=== PATIENT | female | born 2000 | race Caucasian/White ===

== ENCOUNTER 2022-03-07 23:14 | Observation (INO) | payer OTHER, SELFPAY ==
--- NOTE | ~2022-03-07 | CT_ITS ---
EXAMINATION: CT abdomen pelvis wo con DATE: 03/08/2022 02:19 INDICATION: nausea, vomiting upper abdominal pain TECHNIQUE: Computed tomography (CT) of the abdomen and pelvis was performed without intravenous contr ast. Automated exposure control and iterative reconstruction technique were employed. The dose-length product was 288.96 mGy-cm. COMPARISON: None FINDINGS: Lower thorax: Unremarkable Liver: Normal. Biliary/Gallbladder: Gallbladder is normal. No bile duct dilation. Pancreas: No mass or duct dilation. Spleen: Normal. Adrenals:No mass. Kidneys: No mass, stone, or hydronephrosis. GI tract: No small or large bowel dilation. Appendix not confidently visualized. Fluid-filled colon. Mesentery/Peritoneum: No ascites, mass, or free air. Retroperitoneum: No mass. Pelvis: Pelvic organs are within normal limits. Soft Tissues: Soft tissues and body wall unremarkable. Bones: No acute osseous finding. IMPRESSION: Fluid-filled colon as can be seen with diarrheal illness. Otherwise no acute abdominopelvic process. Reviewed, dictated and finalized at location K. IMPRESSION: Fluid-filled colon as can be seen with diarrheal illness. Otherwise no acute ab dominopelvic process.
--- NOTE | ~2022-03-07 | XR_ITS ---
EXAMINATION: XR chest 1V portable INDICATION: Weakness and abdominal pain TECHNIQUE: Portable AP chest at 0108 hours COMPARISON: None available FINDINGS: The lungs are free of acute opacities. There is no pleural effusion or pneumothorax. The ca rdiomediastinal silhouette is normal. The visualized bones and soft tissues are unremarkable. IMPRESSION: 1. No acute cardiopulmonary abnormality. Reviewed, dictated and finalized at location A.
--- NOTE | 2022-03-07 23:22 | ECG_ITS ---
Measurements Intervals [place] Rate: 101 P: 55 LA: 148 QRS: 50 QRSD: 87 T: -5 QT: 384 QTc: 500 Interpretive Statements SINUS TACHYCARDIA NONSPECIFIC T-WAVE ABNORMALITY NO SIGNIFICANT CHANGE Electronically Signed On 03-08-2022 8:57:54 CDT by Jaclyn Ramos M.D.
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
[2022-03-07 23:26] VITALS: BP 102/67; PULSE 91; RESP 20; TEMP 35.7; O2SAT 100
[2022-03-07 23:55] LABS: Basophils Absolute Auto 0.1 K/mm3 (0.0-0.1); Basophils Percent Auto 0.4 % (0.2-1.2); Eosinophils Percent Auto 0.2 % (0-4.4); Hematocrit 39.3 % (37.0-47.0); Hemoglobin 13.2 g/dL (12.0-15.0); Immature Granulocyte Absolute 0.09 K/mm3 (0.00-0.031); Immature Granulocyte Percent A 0.5 % (0-0.5); Lymphocytes Absolute Auto 1.01 K/mm3 (0.9-3.2); Lymphocytes Percent Auto 5.5 % (18.3-44.2); Mean Corpuscular HGB Conc 33.6 g/dl (32-36); Mean Corpuscular Hemoglobin 29.5 pg (26-34); Mean Corpuscular Volume 87.9 fl (80-100); Mean Platelet Volume 9.4 fl (7.4-10.4); Monocytes Percent Auto 5.3 % (2.6-8.5); Neutrophils Absolute Auto 16.2 K/mm3 (1.3-6.7); Neutrophils Percent Auto 88.1 % (45.5-73.1); Platelet Count Result 331 k/mm3 (150-375); Red Blood Count 4.47 M/mm3 (4.2-5.4); Red Cell Distribution Width 12.1 % (11.5-14.5); White Blood Count 18.4 K/mm3 (4.5-10.0)
[2022-03-08] VITALS (14 sets, daily range): BP systolic 103–118; BP diastolic 60–82; PULSE 106–140; RESP 16–22; TEMP 36.4–37.7; O2SAT 96–99; BMI 25.9
[2022-03-08 00:02] LABS: Alanine Aminotransferase 24 U/L (6-35); Albumin Level 4.7 g/dL (3.5-5.1); Alkaline Phosphatase 77 U/L (38-126); Anion Gap 15 mmol/L (8-16); Aspartate Amino Transferase 30 U/L (14-36); Bilirubin,Total 0.5 mg/dL (0.2-1.3); Blood Urea Nitrogen 12 mg/dL (7-17); Calcium 9.4 mg/dL (8.4-10.2); Carbon Dioxide 15 mmol/L (22-30); Chloride 106 mmol/L (98-107); Estimated CRCL calculation 99 ml/min; Estimated Glomerular Filt Rate > 60; Glucose 195 mg/dL (65-110); Lipase 63 U/L (23-300); Magnesium 1.4 mg/dL (1.6-2.3); Potassium 3.6 mmol/L (3.4-5.0); Sodium 136 mmol/L (137-145)
[2022-03-08 00:04] LABS: Lactic Acid Reflex 4.3 mmol/L (0.7-2.0)
[2022-03-08] MEDS: LACTATED RINGERS 1,000 ML 999 ML IV CONT ×2 (00:07→00:47)
[2022-03-08] MEDS: ONDANSETRON INJ 4 MG/2 ML VIAL IV PUSH ×2 (00:08→04:50)
[2022-03-08 00:42] LABS: Base Excess ABG -4.9 mEq/l (+/-2.0); Fractional Inspired Oxygen 21 %; HCO3 ABG 17.8 mEq/l (22.0-26.0); Methemoglobin ABG 0.3 %THb (0-1.5); Oxygen Content ABG 17.6 %vol (16.0-22.0); Oxygen Saturation ABG 97.7 % (95.0-100.0); Oxyhemoglobin 96.5 % THb (90.0-100.0); PCO2 ABG 27.1 mmHg (35.0-45.0); PO2 ABG 96.3 mmHg (80.0-100.0); PO2 FiO2 Ratio Arterial Blood 4.59 %; Reduced Hemoglobin 3.2 %THb (0-5.0); Total Hemoglobin 12.9 g/dL (12.0-18.0); pH ABG 7.436 (7.350-7.450)
[2022-03-08 00:43] LABS: Device ROOM AIR; Modified Allen's Test Pass; Site Drawn RIGHT RADIAL
[2022-03-08 01:19] LABS: Add Urine Microscopic? YES; Appearance Urine Clear (Clear); Bilirubin Urine Negative (Negative); Blood Urine Trace (Negative); Color Urine Yellow (Yellow); Glucose Urine UA Negative (Negative); Ketones Urine 3+ mg/dL (Negative); Leukocyte Esterase Ur Negative LEU/UL (Negative); Nitrate Urine Negative (Negative); Protein Urine Negative (Negative); Urobilinogen Urine 0.2 mg/dL (<2.0)
[2022-03-08 01:24] LABS: Mucus Urine Few /lpf; Squamous Epithelial Cell Urine Rare /hpf (Few)
[2022-03-08 01:32] LABS: Amphetamine Screen Urine Negative (Negative); Barbiturate Screen Urine Negative (Negative); Benzodiazepines Screen Urine Negative (Negative); Cannabinoid Screen Urine Negative (Negative); Cocaine Screen Urine Negative (Negative); Methadone Screen Urine Negative (Negative); Opiate Screen Urine Negative (Negative); Phencyclidine Screen Urine Negative (Negative)
--- NOTE | 2022-03-08 01:58 | PC.NURSE ---
Pt ambulated to bathroom with steady gait.
[2022-03-08] MEDS: SODIUM CHLORIDE 0.9% IV 1,000 ML 999 ML IV CONT ×2 (02:32→03:45)
[2022-03-08 02:47] LABS: Reflex Lactic Acid Yes or No Add Lactic
--- NOTE | 2022-03-08 02:52 | PC.NURSE ---
Pt much improved. Mother now at the bedside. Friends had been in and out of room. Pt. smiling and conversational appropreate. C/O a H/A 4 on a 1-10 scale.
[2022-03-08 03:23] LABS: Lactic Acid 1.5 mmol/L (0.7-2.0)
--- NOTE | 2022-03-08 05:03 | PC.NURSE ---
nausea vomiting and diarreha returned. pt reports some abdominal discomfort.
--- NOTE | 2022-03-08 06:22 | PC.NURSE ---
Pt C/O rosemary umbilical pain aching and cramping in sensation and a 5 on a 1-10 scale. CHARLY James adviseed. Addmissions orders recieved.
[2022-03-08 07:08] LABS: SARS-CoV-2 RNA PCR Negative
[2022-03-08] MEDS: KETOROLAC 30 MG/ML VIAL (*BKC) IV PUSH (07:16)
--- NOTE | 2022-03-08 08:17 | ADMGEN ---
This patient, Jazlyn Ford, was admitted to [facility] Surg Room 300-01 at 0732. Report per REX Starkey. Patient/family oriented to hospital policies and general routines including ID bracelet, bed and alarms, visiting hours, pain management, procedures, bathroom and other care routines, personal items, smoking policy, room service/diet, and visiting hours. Information on how to activate the Rapid Response Team has been discussed. Patient/Family are encouraged to report perceived risks to care and to ask questions if they do not understand what they are told or what they should do.
[2022-03-08 08:37] LABS: Basophils Percent Auto 0.3 % (0.2-1.2); Hematocrit 33.3 % (37.0-47.0); Hemoglobin 11.1 g/dL (12.0-15.0); Immature Granulocyte Absolute 0.04 K/mm3 (0.00-0.031); Immature Granulocyte Percent A 0.4 % (0-0.5); Lymphocytes Absolute Auto 0.53 K/mm3 (0.9-3.2); Lymphocytes Percent Auto 4.9 % (18.3-44.2); Mean Corpuscular HGB Conc 33.3 g/dl (32-36); Mean Corpuscular Hemoglobin 29.8 pg (26-34); Mean Corpuscular Volume 89.5 fl (80-100); Mean Platelet Volume 9.5 fl (7.4-10.4); Monocytes Absolute Auto 0.4 K/mm3 (0.1-0.6); Monocytes Percent Auto 3.9 % (2.6-8.5); Neutrophils Absolute Auto 9.8 K/mm3 (1.3-6.7); Neutrophils Percent Auto 90.5 % (45.5-73.1); Platelet Count Result 250 k/mm3 (150-375); Red Blood Count 3.72 M/mm3 (4.2-5.4); Red Cell Distribution Width 12.4 % (11.5-14.5); White Blood Count 10.9 K/mm3 (4.5-10.0)
[2022-03-08 08:52] LABS: Alanine Aminotransferase 17 U/L (6-35); Albumin Level 3.8 g/dL (3.5-5.1); Alkaline Phosphatase 54 U/L (38-126); Anion Gap 9 mmol/L (8-16); Aspartate Amino Transferase 20 U/L (14-36); Bilirubin,Total 0.4 mg/dL (0.2-1.3); Blood Urea Nitrogen 8 mg/dL (7-17); Calcium 7.8 mg/dL (8.4-10.2); Carbon Dioxide 20 mmol/L (22-30); Chloride 110 mmol/L (98-107); Estimated CRCL calculation 116 ml/min; Estimated Glomerular Filt Rate > 60; Glucose 109 mg/dL (65-110); Lipase 35 U/L (23-300); Potassium 3.5 mmol/L (3.4-5.0); Sodium 139 mmol/L (137-145)
[2022-03-08] MEDS: PANTOPRAZOLE SODIUM IV 40 MG VIAL IV PUSH (09:08)
[2022-03-08] MEDS: SODIUM CHLORIDE 0.9% IV 1,000 ML 125 ML IV CONT ×2 (09:08→17:20)
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
[2022-03-08 09:55] LABS: Magnesium 1.6 mg/dL (1.6-2.3)
[2022-03-08] MEDS: FLUoxetine HCL 20 MG CAPSULE 40 MG PO (11:12)
[2022-03-08] MEDS: CHOLECALCIFEROL 1,000 UNITS TABLET 1000 UNITS PO (11:13)
[2022-03-08] MEDS: CYANOCOBALAMIN 1,000 MCG TABLET 1000 MCG PO (11:13)
[2022-03-08] MEDS: busPIRone HCL 5 MG TABLET PO (20:22)
[2022-03-09] MEDS: SODIUM CHLORIDE 0.9% IV 1,000 ML 125 ML IV CONT (01:50)
[2022-03-09 02:32] VITALS: O2SAT 100
[2022-03-09 04:00] VITALS: PULSE 103
[2022-03-09 05:58] VITALS: BP 111/66; PULSE 109; RESP 18; TEMP 36.3; O2SAT 99
[2022-03-09 06:42] LABS: Basophils Percent Auto 0.3 % (0.2-1.2); Eosinophils Absolute Auto 0.1 K/mm3 (0-0.3); Eosinophils Percent Auto 1.6 % (0-4.4); Hematocrit 34.1 % (37.0-47.0); Hemoglobin 11.3 g/dL (12.0-15.0); Immature Granulocyte Absolute 0.03 K/mm3 (0.00-0.031); Immature Granulocyte Percent A 0.5 % (0-0.5); Lymphocytes Absolute Auto 1.67 K/mm3 (0.9-3.2); Lymphocytes Percent Auto 28.9 % (18.3-44.2); Mean Corpuscular HGB Conc 33.1 g/dl (32-36); Mean Corpuscular Hemoglobin 29.6 pg (26-34); Mean Corpuscular Volume 89.3 fl (80-100); Mean Platelet Volume 9.8 fl (7.4-10.4); Monocytes Absolute Auto 0.7 K/mm3 (0.1-0.6); Monocytes Percent Auto 11.4 % (2.6-8.5); Neutrophils Absolute Auto 3.3 K/mm3 (1.3-6.7); Neutrophils Percent Auto 57.3 % (45.5-73.1); Platelet Count Result 214 k/mm3 (150-375); Red Blood Count 3.82 M/mm3 (4.2-5.4); Red Cell Distribution Width 12.5 % (11.5-14.5); White Blood Count 5.8 K/mm3 (4.5-10.0)
[2022-03-09 06:55] LABS: Alanine Aminotransferase 33 U/L (6-35); Albumin Level 3.5 g/dL (3.5-5.1); Alkaline Phosphatase 59 U/L (38-126); Anion Gap 7 mmol/L (8-16); Aspartate Amino Transferase 45 U/L (14-36); Bilirubin,Total 0.2 mg/dL (0.2-1.3); Blood Urea Nitrogen 3 mg/dL (7-17); Calcium 7.8 mg/dL (8.4-10.2); Carbon Dioxide 23 mmol/L (22-30); Chloride 108 mmol/L (98-107); Estimated CRCL calculation 116 ml/min; Estimated Glomerular Filt Rate > 60; Glucose 83 mg/dL (65-110); Potassium 3.2 mmol/L (3.4-5.0); Sodium 138 mmol/L (137-145)
[2022-03-09 08:00] VITALS: PULSE 113
[2022-03-09] MEDS: POTASSIUM CHLORIDE 20 MEQ TABLET 40 MEQ PO (08:35)
[2022-03-09] MEDS: CYANOCOBALAMIN 1,000 MCG TABLET 1000 MCG PO (08:36)
[2022-03-09] MEDS: FLUoxetine HCL 20 MG CAPSULE 40 MG PO (08:36)
[2022-03-09] MEDS: CHOLECALCIFEROL 1,000 UNITS TABLET 1000 UNITS PO (08:36)
[2022-03-09] MEDS: PANTOPRAZOLE SODIUM IV 40 MG VIAL IV PUSH (08:36)
--- NOTE | 2022-03-09 08:36 | PM.DS ---
DS: Admitting Diagnosis Discharge Date 03/09/22 Admitting Diagnosis N/V/D DS: Discharge Diagnosis Discharge Diagnosis (1) Enterocolitis: Code(s): K52.9 - Noninfective gastroenteritis and colitis, unspecified Status: Acute Assessment and Plan: -sudden onset N/V/D/abd pain 1 hour after eating pizza/salad -CT abd/pelv shows enterocolitis -food poisoning vs viral gastroenteritis -pt improved with IVF and antiemetics -no hematochezia to suggest infectious diarrhea, no abx indicated at this time -leukocytosis resolved, no fevers -tachycardic which is baseline for her, has been worked up extensively by cardiology -tolerating full liquids without difficulty, no N/V. Still some lower abdominal cramping and diarrhea. As long as she tolerated regular diet for lunch she can be discharged home. -she is non toxic appearing in no distress, vitals stable (2) Leukocytosis: Code(s): D72.829 - Elevated white blood cell count, unspecified Status: Acute Assessment and Plan: -18.4 on arrival, most likely secondary to intractable vomiting due to above -decreased to 5.8 today with IVF -lactate was 4.3 on arrival but down to 1.5 after 2L IVF -no fevers or other signs to suggest acute bacterial infection or sepsis (3) Hyperglycemia: Code(s): R73.9 - Hyperglycemia, unspecified Status: Acute Assessment and Plan: -noted to be 195 on arrival, down to 83 today -hgb a1c 5.0 (4) Hypomagnesemia: Code(s): E83.42 - Hypomagnesemia Status: Acute Assessment and Plan: -1.4 on arrival -given 2 g IV in ED -1.6 after replacement (5) UDAY (generalized anxiety disorder): Code(s): F41.1 - Generalized anxiety disorder Status: Acute Assessment and Plan: -continued home meds DS: Summary Hospital Course Reason for hospitalization: Pt is a 21 yo female w/ hx of anxiety who presented to the ED for acute onset N/V/D/abd pain.? Please see HPI for further details. Hospital Course: Please see above for details of hospital course. Status at Discharge Cognitive/behavioral status at discharge: stable Functional status at discharge: independent ambulation Overall status at discharge: patient is progressing back to baseline Time Spent with Patient Time attestation: Total time spent providing and/or coordinating discharge services: 32 Time spent: Greater than 30 minutes Exam Narrative: General: No acute distress, non toxic appearing Eyes: PERRL, no scleral icterus HEENT: NCAT, external ears normal, MMM Respiratory: No respiratory distress, Lungs CTA bilaterally, no wheezing Cardiovascular: RRR, no murmur Abdominal: Soft, nontender, non distended, no rebound or guarding Musculoskeletal: Moves all 4 extremities, no edema Neurological: A/Ox3, speech clear, no facial asymmetry Skin: Warm, dry, no rashes Psychiatric: Normal affect, normal mood DS: Data Data Completed and Pending Labs on day of discharge: Labs from last 24 hours 03/09/22 03/09/22 03/08/22 05:48 05:48 16:40 WBC 5.8 RBC 3.82 L Hgb 11.3 L Hct 34.1 L MCV 89.3 MCH 29.6 MCHC 33.1 RDW 12.5 Plt Count 214 MPV 9.8 Immature Gran % (Auto) 0.5 Neut % (Auto) 57.3 Lymph % (Auto) 28.9 [place] % (Auto) 11.4 H Eos % (Auto) 1.6 Baso % (Auto) 0.3 Lymph # (Auto) 1.67 [place] # (Auto) 0.7 H Eos # (Auto) 0.1 Baso # (Auto) 0.0 Abs Immat Gran (auto) 0.03 Absolute Neuts (auto) 3.3 Absolute Nucleated RBC 0.0 Nucleated RBC % 0.0 Sodium 138 Potassium 3.2 L Chloride 108 H Carbon Dioxide 23 Anion Gap 7 L BUN 3 L D Creatinine 0.50 L Estim Creat Clear Calc 116 Estimated GFR > 60 Glucose 83 Hemoglobin A1c Calcium 7.8 L Magnesium Total Bilirubin 0.2 AST 45 H ALT 33 Alkaline Phosphatase 59 Total Protein 7.0 Albumin 3.5 Lipase Ova & Para
== END 2022-03-09 11:30 | disposition home or self-care (01) ==
LOC: ANHED 03-08 00:07 → ANH3MEDSUR 03-08 06:21
PROVIDERS: Physician Assistant; Admitting Provider Internal Medicine; Emergency Provider General Practice; PCP Nurse Practitioner Family; Visit Provider Internal Medicine
DX: K52.9 Noninfective gastroenteritis and colitis, unspecified (principal); I95.9 Hypotension, unspecified; R42 Dizziness and giddiness; F41.1 Generalized anxiety disorder; E72.12 Methylenetetrahydrofolate reductase deficiency; D72.829 Elevated white blood cell count, unspecified; R73.9 Hyperglycemia, unspecified; E83.42 Hypomagnesemia; Z20.822 Contact with and (suspected) exposure to COVID-19
CPT/HCPCS: 36415; 36600; 71045; 74176; 80053; 80307; 81001; 81025; 82375; 82805; 83036; 83050; 83605; 83690; 83735; 85025; 87045; 87177; 87209; 87269; 87272; 87427; 89055; 93005; 96361; 96365; 96374; 96375; 96376; 99285; A9270; C9113; C9803; G0378; J0131; J1885; J2405; J7030; J7120; U0003; U0005

== ENCOUNTER 2022-07-12 16:54 | Emergency (ER) | payer OTHER, SELFPAY ==
--- NOTE | ~2022-07-12 | CT_ITS ---
EXAMINATION: CT brain wo con DATE: 07/12/2022 18:00 INDICATION: visual loss, new R sided migraine RAMIREZ . TECHNIQUE: Computed tomography (CT) of the head was performed without intravenous contrast. The mA wa s adjusted according to patient size. Iterative reconstruction technique was employed. The dose-lengt h product was 605.33 mGy-cm. COMPARISON: 07/20/2019 FINDINGS: No acute intracranial hemorrhage or extra-axial fluid collection. No hydrocephalus, mass, or herniation. No acute ischemic infarct. Unremarkable dural venous sinus attenuation. No acute osseous abnormality. The aerated spaces are clear. IMPRESSION: No acute intracranial process. Reviewed, dictated and finalized at location K.
[2022-07-12 16:57] VITALS: BP 119/107; PULSE 113; RESP 17; TEMP 36.5; O2SAT 100
[2022-07-12 17:05] VITALS: O2SAT 100
[2022-07-12 17:13] VITALS: BP 129/84; PULSE 99; RESP 16; O2SAT 100
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
[2022-07-12] MEDS: SODIUM CHLORIDE 0.9% IV 1,000 ML 999 ML IV CONT (17:26)
[2022-07-12] MEDS: diphenhydrAMINE HCl INJ 50 MG/ML VIAL 25 MG IV PUSH (17:27)
[2022-07-12 17:37] LABS: Basophils Percent Auto 0.5 % (0.2-1.2); Eosinophils Absolute Auto 0.1 K/mm3 (0-0.3); Eosinophils Percent Auto 1.1 % (0-4.4); Hematocrit 38.1 % (37.0-47.0); Hemoglobin 12.6 g/dL (12.0-15.0); Immature Granulocyte Absolute 0.01 K/mm3 (0.00-0.031); Immature Granulocyte Percent A 0.2 % (0-0.5); Lymphocytes Absolute Auto 1.72 K/mm3 (0.9-3.2); Lymphocytes Percent Auto 30.4 % (18.3-44.2); Mean Corpuscular HGB Conc 33.1 g/dl (32-36); Mean Corpuscular Hemoglobin 29.9 pg (26-34); Mean Corpuscular Volume 90.3 fl (80-100); Mean Platelet Volume 9.1 fl (7.4-10.4); Monocytes Absolute Auto 0.4 K/mm3 (0.1-0.6); Monocytes Percent Auto 6.2 % (2.6-8.5); Neutrophils Absolute Auto 3.5 K/mm3 (1.3-6.7); Neutrophils Percent Auto 61.6 % (45.5-73.1); Platelet Count Result 288 k/mm3 (150-375); Red Blood Count 4.22 M/mm3 (4.2-5.4); Red Cell Distribution Width 12.6 % (11.5-14.5); White Blood Count 5.7 K/mm3 (4.5-10.0)
[2022-07-12 17:46] LABS: Alanine Aminotransferase 20 U/L (6-35); Albumin Level 4.7 g/dL (3.5-5.1); Alkaline Phosphatase 77 U/L (38-126); Anion Gap 13 mmol/L (8-16); Aspartate Amino Transferase 22 U/L (14-36); Bilirubin,Total 0.3 mg/dL (0.2-1.3); Blood Urea Nitrogen 8 mg/dL (7-17); Calcium 9.6 mg/dL (8.4-10.2); Carbon Dioxide 26 mmol/L (22-30); Chloride 101 mmol/L (98-107); Estimated CRCL calculation 94 ml/min; Estimated Glomerular Filt Rate > 60; Glucose 105 mg/dL (65-110); Potassium 3.9 mmol/L (3.4-5.0); Sodium 140 mmol/L (137-145)
[2022-07-12 18:03] VITALS: BP 129/91; PULSE 117; RESP 22; O2SAT 98
[2022-07-12] MEDS: KETOROLAC 15 MG/ML VIAL (*BKC) IV PUSH (18:03)
[2022-07-12 18:16] VITALS: BP 124/86; PULSE 126; RESP 19; O2SAT 98
[2022-07-12 18:46] VITALS: BP 106/69; PULSE 103; RESP 20; O2SAT 99
== END 2022-07-12 18:54 | disposition home or self-care (01) ==
PROVIDERS: Physician Assistant; Emergency Provider General Practice; PCP Family Medicine
DX: G43.109 Migraine with aura, not intractable, without status migrainosus (principal); F41.1 Generalized anxiety disorder
CPT/HCPCS: 36415; 70450; 80053; 81025; 85025; 96361; 96374; 96375; 99284; J1200; J1885; J7030

== ENCOUNTER 2022-07-18 14:47 | Emergency (ER) | payer OTHER, SELFPAY ==
[2022-07-18 14:52] VITALS: BP 139/77; PULSE 112; RESP 18; TEMP 36.8; O2SAT 100
--- NOTE | 2022-07-18 16:09 | PC.NURSE ---
Pt to the intake desk and states that she is going to leave. Pt states im just going to wait it out at home Pt ambulated to the exit with a steady gait
== END 2022-07-18 16:09 | disposition left against medical advice (07) ==
LOC: ANHED 07-19 03:46
PROVIDERS: PCP Family Medicine
DX: Z53.21 Procedure and treatment not carried out due to patient leaving prior to being seen by health care provider (principal)
CPT/HCPCS: 99199

== ENCOUNTER 2022-07-20 18:17 | Emergency (ER) | payer OTHER, SELFPAY ==
[2022-07-20 18:34] VITALS: BP 141/82; PULSE 115; RESP 18; TEMP 36.6; O2SAT 99
[2022-07-20 18:45] LABS: Basophils Percent Auto 0.4 % (0.2-1.2); Eosinophils Absolute Auto 0.1 K/mm3 (0-0.3); Eosinophils Percent Auto 0.7 % (0-4.4); Hematocrit 38.1 % (37.0-47.0); Hemoglobin 12.7 g/dL (12.0-15.0); Immature Granulocyte Absolute 0.02 K/mm3 (0.00-0.031); Immature Granulocyte Percent A 0.3 % (0-0.5); Lymphocytes Absolute Auto 2.44 K/mm3 (0.9-3.2); Lymphocytes Percent Auto 32.5 % (18.3-44.2); Mean Corpuscular HGB Conc 33.3 g/dl (32-36); Mean Corpuscular Hemoglobin 30.1 pg (26-34); Mean Corpuscular Volume 90.3 fl (80-100); Mean Platelet Volume 9.2 fl (7.4-10.4); Monocytes Absolute Auto 0.6 K/mm3 (0.1-0.6); Monocytes Percent Auto 7.7 % (2.6-8.5); Neutrophils Absolute Auto 4.4 K/mm3 (1.3-6.7); Neutrophils Percent Auto 58.4 % (45.5-73.1); Platelet Count Result 328 k/mm3 (150-375); Red Blood Count 4.22 M/mm3 (4.2-5.4); Red Cell Distribution Width 12.4 % (11.5-14.5); White Blood Count 7.5 K/mm3 (4.5-10.0)
[2022-07-20 18:53] LABS: Alanine Aminotransferase 23 U/L (6-35); Albumin Level 4.9 g/dL (3.5-5.1); Alkaline Phosphatase 61 U/L (38-126); Anion Gap 15 mmol/L (8-16); Aspartate Amino Transferase 24 U/L (14-36); Bilirubin,Total 0.4 mg/dL (0.2-1.3); Blood Urea Nitrogen 7 mg/dL (7-17); Calcium 9.3 mg/dL (8.4-10.2); Carbon Dioxide 24 mmol/L (22-30); Chloride 100 mmol/L (98-107); Estimated CRCL calculation 81 ml/min; Estimated Glomerular Filt Rate > 60; Glucose 100 mg/dL (65-110); Lipase 60 U/L (23-300); Potassium 3.5 mmol/L (3.4-5.0); Sodium 139 mmol/L (137-145)
[2022-07-20 18:58] LABS: Add Urine Microscopic? YES; Amorphous Sediment Urine Few; Appearance Urine Cloudy (Clear); Bacteria Urine Trace /hpf; Bilirubin Urine Negative (Negative); Blood Urine Negative (Negative); Color Urine Yellow (Yellow); Glucose Urine UA Negative (Negative); Ketones Urine Negative (Negative); Leukocyte Esterase Ur Negative LEU/UL (Negative); Mucus Urine Rare /lpf; Nitrate Urine Negative (Negative); Protein Urine Negative (Negative); Specific Grav Ur 1.018 (1.001-1.035); Squamous Epithelial Cell Urine Rare /hpf (Few); WBC Urine 0-3 /hpf
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
[2022-07-20] MEDS: SODIUM CHLORIDE 0.9% IV 1,000 ML 999 ML IV CONT ×2 (20:49)
[2022-07-20] MEDS: PROCHLORPERAZINE EDISYLATE 10 MG/2 ML VIAL IV PUSH (20:50)
[2022-07-20] MEDS: diphenhydrAMINE HCl INJ 50 MG/ML VIAL 25 MG IV PUSH (20:50)
[2022-07-20 21:51] LABS: Amphetamine Screen Urine Negative (Negative); Barbiturate Screen Urine Negative (Negative); Benzodiazepines Screen Urine Negative (Negative); Cannabinoid Screen Urine Negative (Negative); Cocaine Screen Urine Negative (Negative); Methadone Screen Urine Negative (Negative); Opiate Screen Urine Negative (Negative); Phencyclidine Screen Urine Negative (Negative)
--- NOTE | 2022-07-20 21:59 | PC.NURSE ---
went to attempt reassess the pt, and found pt not in room. IV tubing on bed, with fluids leaking onto bed. no iv catheter found attempted to locate Pt, unable to do so called [facility] to check on pt at home address, and check to see if IV had been removed they stated they would and would return call to myself or mobile application developer mobile application developer made aware.
--- NOTE | 2022-07-20 22:54 | PC.NURSE ---
pd report iv not in pt arm on home check
== END 2022-07-20 22:05 | disposition left against medical advice (07) ==
PROVIDERS: Emergency Medicine; Emergency Provider Nurse Practitioner Family; PCP Family Medicine
DX: R11.2 Nausea with vomiting, unspecified (principal); F41.1 Generalized anxiety disorder
CPT/HCPCS: 36415; 80053; 80307; 81001; 83690; 85025; 96361; 96374; 96375; 99284; J0780; J1200; J7030

== ENCOUNTER 2023-04-01 05:55 | Emergency (ER) | payer OTHER, SELFPAY ==
[2023-04-01] VITALS (8 sets, daily range): BP systolic 110–132; BP diastolic 70–88; PULSE 96–115; RESP 16–18; TEMP 36.5; O2SAT 98–100
--- NOTE | ~2023-04-01 | CT_ITS ---
EXAMINATION: CT abdomen pelvis w con INDICATION: Pain TECHNIQUE: Computed tomographic images of the abdomen and pelvis were obtained after the administrati on of 100 cc of Omnipaque 350 intravenous contrast. The dose-length product (DLP) was 240.54 mGy-cm. Automated exposure control and iterative reconstruction technique were employed. COMPARISON: 03/08/2022 FINDINGS: The lung bases are clear. The heart size is normal. The liver, spleen, pancreas, gallbladde r, and adrenal glands are normal. The kidneys are unremarkable. No pathologically enlarged abdominal or pelvic lymph nodes are identified. No free intraperitoneal gas or evidence of bowel obstruction. T he appendix is normal. The left ovary is enlarged and heterogeneous appearance. The left ovary is so mewhat displaced towards the midline. There is a small volume of pelvic ascites. IMPRESSION: 1. Enlarged left ovary with a heterogeneous appearance and mild midline displacement. Findings are no nspecific but can be seen in the setting of ovarian torsion. Pelvic ultrasound is recommended. These findings and recommendations were discussed with Dr. All Gonzales MD in the Emergency Department at 0823 hours on 04/01/2023. Reviewed, dictated and finalized at location L. IMPRESSION: 1. Enlarged left ovary with a heterogeneous appearance and mild midline displac ement. Findings are nonspecific but can be seen in the setting of ovarian torsi on. Pelvic ultrasound is recommended. These findings and recommendations were d iscussed with Dr. All Gonzales MD in the Emergency Department at 0823 hours o n 04/01/2023.
--- NOTE | ~2023-04-01 | US_ITS ---
Pelvic ultrasound. Clinical History: Ovarian torsion, pelvic pain Technique: Realtime transabdominal and transvaginal scanning of the pelvis was performed. Color flow Doppler and Doppler spectral analysis were performed. Findings: The uterus is anteverted. The endometrial stripe has a thickness of 2 mm. No focal mass is identified. The right ovary measures 1.8 x 2.5 x 2.0 cm. No significant right ovarian or adnexal mass is seen. The left ovary measures 3.0 x 2.7 x 2.3 cm. Left ovarian cyst measures 2.8 cm. Axial flow present in both ovaries on Doppler spectral analysis. There is small amount of free fluid in the cul de sac. Impression: No evidence for torsion. 2.8 cm left ovarian cyst. Small amount of free fluid. Reviewed, dictated and finalized at [facility]. Impression: No evidence for torsion. 2.8 cm left ovarian cyst. Small amount of free fluid.
[2023-04-01 06:46] LABS: Basophils Percent Auto 0.5 % (0.2-1.2); Eosinophils Absolute Auto 0.1 K/mm3 (0-0.3); Eosinophils Percent Auto 1.4 % (0-4.4); Hematocrit 35.5 % (37.0-47.0); Hemoglobin 11.6 g/dL (12.0-15.0); Immature Granulocyte Absolute 0.03 K/mm3 (0.00-0.031); Immature Granulocyte Percent A 0.5 % (0-0.5); Lymphocytes Absolute Auto 1.96 K/mm3 (0.9-3.2); Lymphocytes Percent Auto 33.8 % (18.3-44.2); Mean Corpuscular HGB Conc 32.7 g/dl (32-36); Mean Corpuscular Hemoglobin 29.4 pg (26-34); Mean Corpuscular Volume 89.9 fl (80-100); Monocytes Absolute Auto 0.5 K/mm3 (0.1-0.6); Monocytes Percent Auto 7.9 % (2.6-8.5); Neutrophils Absolute Auto 3.2 K/mm3 (1.3-6.7); Neutrophils Percent Auto 55.9 % (45.5-73.1); Platelet Count Result 259 k/mm3 (150-375); Red Blood Count 3.95 M/mm3 (4.2-5.4); Red Cell Distribution Width 12.4 % (11.5-14.5); White Blood Count 5.8 K/mm3 (4.5-10.0)
[2023-04-01 06:52] LABS: Alanine Aminotransferase 19 U/L (6-35); Albumin Level 4.3 g/dL (3.5-5.1); Alkaline Phosphatase 57 U/L (38-126); Anion Gap 6 mmol/L (8-16); Aspartate Amino Transferase 21 U/L (14-36); Bilirubin,Total 0.3 mg/dL (0.2-1.3); Blood Urea Nitrogen 6 mg/dL (7-17); Calcium 9.2 mg/dL (8.4-10.2); Carbon Dioxide 25 mmol/L (22-30); Chloride 106 mmol/L (98-107); Estimated CRCL calculation 110 ml/min; Estimated Glomerular Filt Rate > 60; Glucose 94 mg/dL (65-110); Lipase 47 U/L (23-300); Potassium 3.9 mmol/L (3.4-5.0); Sodium 137 mmol/L (137-145)
[2023-04-01 06:57] LABS: Lactic Acid Reflex 1.2 mmol/L (0.7-2.0)
[2023-04-01 07:04] LABS: Appearance Urine Clear (Clear); Bacteria Urine None Seen /hpf; Bilirubin Urine Negative (Negative); Color Urine Yellow (Yellow); Glucose Urine UA Negative (Negative); Ketones Urine Negative (Negative); Leukocyte Esterase Ur Negative LEU/UL (Negative); Nitrate Urine Negative (Negative); Non Pathogenic Casts 0-2; Protein Urine Negative (Negative); Specific Grav Ur 1.011 (1.001-1.035); Squamous Epithelial Cell Urine None seen /hpf (Few); Urobilinogen Urine 0.2 mg/dL (<2.0); WBC Urine 0-5 /hpf
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
[2023-04-01 07:26] LABS: Add Urine Microscopic? YES
[2023-04-01] MEDS: SODIUM CHLORIDE 0.9% IV 1,000 ML 999 ML IV CONT (07:47)
[2023-04-01] MEDS: ONDANSETRON INJ 4 MG/2 ML VIAL IV PUSH (07:49)
== END 2023-04-01 11:20 | disposition home or self-care (01) ==
PROVIDERS: Emergency Medicine; Emergency Provider Emergency Medicine; PCP Family Medicine
DX: N83.202 Unspecified ovarian cyst, left side (principal); R10.31 Right lower quadrant pain; K21.9 Gastro-esophageal reflux disease without esophagitis; F32.A Depression, unspecified; F41.1 Generalized anxiety disorder
CPT/HCPCS: 36415; 74177; 76856; 80053; 81001; 81025; 83605; 83690; 85025; 96361; 96374; 99284; J2405; J7030; Q9967

== ENCOUNTER 2023-07-16 15:09 | Emergency (ER) | payer OTHER, SELFPAY ==
--- NOTE | ~2023-07-16 | CT_ITS ---
EXAMINATION: CT abdomen pelvis w con DATE: 07/16/2023 22:51 INDICATION: Epigastric and right upper quadrant pain TECHNIQUE: Computed tomography (CT) of the abdomen and pelvis was performed with 100 cc Omnipaque 350 intravenous contrast. The dose-length product was 228.33 mGy-cm. Automated exposure control and iter ative reconstruction technique were employed. COMPARISON: CT dated 04/01/2023 FINDINGS: Heart size normal. No significant pleural or pericardial effusion. There is gallbladder wal l thickening with possible pericholecystic fluid. There are gallstones. No significant biliary dilata tion. The liver, spleen, pancreas, adrenal glands and kidneys are unremarkable. Small amount of free fluid in the pelvis. Nonobstructive bowel gas pattern. No abnormal pelvic masses. IMPRESSION: 1. Cholelithiasis with gallbladder wall thickening and possible pericholecystic fluid. These findings are suspicious for cholecystitis. Clinically correlate. Reviewed, dictated and finalized at location A.
[2023-07-16 15:22] VITALS: BP 129/82; PULSE 129; RESP 16; TEMP 36.6; O2SAT 100
[2023-07-16 16:28] LABS: Basophils Percent Auto 0.5 % (0.2-1.2); Eosinophils Absolute Auto 0.2 K/mm3 (0-0.3); Eosinophils Percent Auto 1.7 % (0-4.4); Hematocrit 35.3 % (37.0-47.0); Hemoglobin 11.4 g/dL (12.0-15.0); Immature Granulocyte Absolute 0.02 K/mm3 (0.00-0.031); Immature Granulocyte Percent A 0.2 % (0-0.5); Lymphocytes Absolute Auto 1.53 K/mm3 (0.9-3.2); Lymphocytes Percent Auto 17.4 % (18.3-44.2); Mean Corpuscular HGB Conc 32.3 g/dl (32-36); Mean Corpuscular Hemoglobin 29.6 pg (26-34); Mean Corpuscular Volume 91.7 fl (80-100); Mean Platelet Volume 9.8 fl (7.4-10.4); Monocytes Absolute Auto 0.6 K/mm3 (0.1-0.6); Monocytes Percent Auto 6.9 % (2.6-8.5); Neutrophils Absolute Auto 6.5 K/mm3 (1.3-6.7); Neutrophils Percent Auto 73.3 % (45.5-73.1); Platelet Count Result 297 k/mm3 (150-375); Red Blood Count 3.85 M/mm3 (4.2-5.4); Red Cell Distribution Width 12.4 % (11.5-14.5); White Blood Count 8.8 K/mm3 (4.5-10.0)
[2023-07-16 16:32] LABS: Appearance Urine Clear (Clear); Bacteria Urine None Seen /hpf; Bilirubin Urine Negative (Negative); Color Urine Yellow (Yellow); Glucose Urine UA Negative (Negative); Ketones Urine Negative (Negative); Leukocyte Esterase Ur Negative LEU/UL (Negative); Nitrate Urine Negative (Negative); Non Pathogenic Casts 0-2; Protein Urine Negative (Negative); Specific Grav Ur 1.018 (1.001-1.035); Squamous Epithelial Cell Urine None seen /hpf (Few); WBC Urine 0-5 /hpf; pH Urine 7.5 (5.0-9.0)
[2023-07-16 16:34] LABS: Add Urine Microscopic? YES
[2023-07-16 16:37] LABS: Alanine Aminotransferase 16 U/L (6-35); Albumin Level 4.4 g/dL (3.5-5.1); Alkaline Phosphatase 66 U/L (38-126); Anion Gap 7 mmol/L (8-16); Aspartate Amino Transferase 25 U/L (14-36); Bilirubin,Total 0.4 mg/dL (0.2-1.3); Blood Urea Nitrogen 8 mg/dL (7-17); Calcium 9.4 mg/dL (8.4-10.2); Carbon Dioxide 26 mmol/L (22-30); Chloride 103 mmol/L (98-107); Estimated CRCL calculation 93 ml/min; Estimated Glomerular Filt Rate > 60; Glucose 108 mg/dL (65-110); Lipase 35 U/L (23-300); Potassium 4.1 mmol/L (3.4-5.0); Sodium 136 mmol/L (137-145)
[2023-07-16 22:00] VITALS: BP 120/77; PULSE 80; RESP 14; O2SAT 100
[2023-07-16] MEDS: SODIUM CHLORIDE 0.9% IV 1,000 ML 999 ML IV CONT (22:32)
[2023-07-16] MEDS: PANTOPRAZOLE SODIUM IV 40 MG VIAL IV PUSH (22:33)
[2023-07-16] MEDS: ONDANSETRON INJ 4 MG/2 ML VIAL IV PUSH (22:37)
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
== END 2023-07-17 00:46 | disposition home or self-care (01) ==
PROVIDERS: Emergency Medicine; Emergency Provider Physician Assistant; PCP Family Medicine
DX: K80.00 Calculus of gallbladder with acute cholecystitis without obstruction (principal); F41.1 Generalized anxiety disorder; Z62.811 Personal history of psychological abuse in childhood
CPT/HCPCS: 36415; 74177; 80053; 81001; 81025; 83690; 85025; 96361; 96374; 96375; 99284; C9113; J2405; J7030; Q9967

== ENCOUNTER 2023-07-23 10:57 | Outpatient (CLI) | payer OTHER, SELFPAY ==
[2023-07-23 11:48] LABS: Amylase 58 U/L (30-110)
== END 2023-07-23 10:58 | disposition home or self-care (01) ==
PROVIDERS: PCP Family Medicine; Visit Provider Surgery
DX: Z01.818 Encounter for other preprocedural examination (principal); K80.10 Calculus of gallbladder with chronic cholecystitis without obstruction
CPT/HCPCS: 36415; 82150; 86850; 86900; 86901

== ENCOUNTER 2023-07-26 00:10 | Day surgery (SDC) | payer OTHER, SELFPAY ==
[2023-07-23 10:05] VITALS: BMI 23.3
--- NOTE | 2023-07-23 10:11 | PC.NURSE ---
Report to the Outpatient Waiting Room, entrance under the green pavilion located off [facility], at time _1100 on date _07/26/23. Planned Procedure Time: __1300. Time changes happen often and if your time is changed the preop area will call you the afternoon before. - You and your visitor will be asked to self-screen and do not enter if you have any COVID symptoms. - A mask is optional within the hospital at this time. Patients may have clear liquids (water, carbonated beverages, clear teas, apple juice) until 3 hours prior to surgery with a maximum of 20 ounces. - No food from midnight until time of surgery - Infants may have breast milk until 4 hours before surgery, formula 6 hours prior to surgery. - Children will be allowed to drink immediately following surgery. If applicable, please bring a bottle or sippy cup to assist with drinking. Juice, water, soda, and popsicles are readily available. For infants on formula, please bring formula the day of surgery. Pacifiers are allowed. Take the following medications with a SIP of water the morning of surgery: FLUOXETINE, INHALER AND ZOFRAN IF NEEDED DO NOT STOP ANY OF YOUR OTHER PRESCRIPTION MEDICATIONS PRIOR TO SURGERY ?EXCEPT THE FOLLOWING Medications to discontinue per physician NONE Date to take last dose Please no make-up, nail macedonian, hairspray, perfume, deodorant, or body powder the day of surgery. No jewelry (including any body piercings) or valuables the day of surgery, leave them at home. Please take a shower or bath the night before, or the morning of, surgery with HIBICLENS antibacterial soap. Wear comfortable, loose fitting clothing. Children are encouraged to wear pajamas. - Jewelry must be removed prior to entering the operating room. Rings and piercings that are not removed may be cut off. - The hospital will not accept responsibility for valuables. - Please leave all valuables, including medications, at home the day of surgery. If you are going home after surgery, a licensed truck driver supervisor must drive you home. - NO public transportation without another adult if you receive anesthesia. - We recommend that an adult stay with you for 24 hours following discharge. - We also recommend that you do not drive, make important decision, drink alcoholic beverages, or take any drugs that were not prescribed by your health care provider for at least 24 hours after your discharge time. For Pediatric surgeries, we recommend two adults accompany the child home. Follow any additional instructions given to you from your surgeon. If you or anyone in your household have experienced Covid symptoms in the past week, please notify your surgeon or the nurse liaison at the phone number below for possible testing. Telephone instructions given to _PATIENT_and asked if any additional questions and then verbalized understanding. Patient advised to call surgeon office or pre surgery nurse liaison [phone] if any additional questions.
[2023-07-26] VITALS (12 sets, daily range): BP systolic 106–120; BP diastolic 64–77; PULSE 92–141; RESP 16–22; TEMP 36.8; O2SAT 98–100; BMI 22.4
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
--- NOTE | 2023-07-26 12:03 | WPDHPUPDATE1 ---
History and Physical Update Update Date/Time: 07/26/23 12:03 History and Physical has been reviewed, including an updated exam of the patient. There are NO changes in the patient's condition. Risks, benefits, and alternatives have been discussed and questions answered. Patient agrees to proceed with procedure.
[2023-07-26] MEDS: LACTATED RINGERS 1,000 ML 30 ML IV CONT ×2 (12:15→14:15)
[2023-07-26] MEDS: KETOROLAC 15 MG/ML VIAL (*BKC) IV PUSH (12:27)
[2023-07-26] MEDS: ACETAMINOPHEN 500 MG TABLET 1000 MG PO (12:27)
[2023-07-26] MEDS: SCOPOLAMINE 1.5 MG PATCH TRANSDERM (12:53)
[2023-07-26] MEDS: ceFAZolin 2 GM/D5W 50 ML 2 GM/50 ML BAG IVPB (12:59)
[2023-07-26] MEDS: BUPIVACAINE/EPINEPHRINE 0.5% 50 ML VIAL 30 ML INFILTRATE (13:31)
--- NOTE | 2023-07-26 14:13 | W.PM.PROC2 ---
Procedure Note - Detailed Date of Procedure 07/26/23 Pre-op Diagnosis cholecystitis, cholelithiasis Post-op Diagnosis Same Procedure Performed Laparoscopic cholecystectomy Surgeon Doretha Pérez MD Anesthesia General Indications 23-year-old female presented to the office complaining of postprandial right upper quadrant abdominal pain associated with nausea and vomiting. Workup including imaging significant for cholecystitis, cholelithiasis. Findings acute cholecystitis with cholelithiasis Description of Procedure The patient was taken to the operating room placed in the supine position. After adequate induction of general anesthesia, the patient was prepped and draped in normal sterile fashion. A time-out was then performed to verify the patient's identity as well as the procedure being performed. I then made a 5 mm incision in the infraumbilical region. Through this, a Veress needle was placed into the peritoneal cavity and CO2 gas was then insufflated. After adequate pneumoperitoneum was achieved, the Veress needle was removed and a 5 mm optiview trocar was placed through this incision under direct visualization. I then placed the laparoscope through this trocar site and under direct visualization placed a further 12 mm subxiphoid port as well as 2 additional 5 mm ports in the right upper abdomen. The gallbladder was then identified and was noted to be inflamed, distended, and full of gallstones. I was able to place a grasper at the dome of the gallbladder and this was retracted anterior and cephalad up over the liver. A 2nd retractor was then placed at the infundibulum and retracted laterally, this allowed visualization of the triangle of Calot. I then was able to visualize the cystic duct in its entirety from its proximal insertion into the gallbladder, to its distal junction with the common hepatic/common bile duct junction. At this point, I carefully skeletonized the proximal cystic duct with the [place] dissector. I then clipped and transected the proximal cystic duct. Next I visualized the cystic artery. Again the artery was skeletonized, clipped, and transected. I then used the Bovie cautery to take down the peritoneal attachments of the gallbladder off the liver bed. This was difficult given the amount of inflammation in the posterior space and a intrahepatic gallbladder. Once the gallbladder specimen was completely detached, an endo-pouch was placed through the 12 mm port site. I then placed the gallbladder specimen into the Endo pouch and removed the endo-pouch from the 12 mm port site. The specimen will now be sent to pathology for further review. I then copiously irrigated the right upper quadrant. Some mild oozing was noted in the liver bed and this was controlled with the bovie cautery. Hemostasis was noted in the liver bed, the clips were noted to be in good position on both the cystic duct stump and the cystic artery stump. No other pathology was noted in the right upper quadrant. I then moved the laparoscope to the subxiphoid port. No iatrogenic injury or other pathology was noted in the lower abdomen. I then closed the 12 mm trocar site under direct visualization using the Kristian cone and 0 Vicryl suture. At this point, the abdomen was desufflated and all ports removed. All port sites were then closed with 4.O Monocryl subcuticular sutures. Dermabond was placed on each incision. The patient tolerated the procedure well, was extubated in the operating room postoperative and will be transferred to the recovery room in stable condition Estimated Blood Loss 20 Drains No Packing No Pathology Yes Complications No immediate complications Condition Stable Disposition PACU [facility] Billing Surgery - Charge Forward: Surgery Billing
--- NOTE | 2023-07-26 15:41 | SUR.PHASEI ---
pt HR 130' - 140's. dr olivo aware. pt was 130 in pre-op. no orders at this time.
--- NOTE | 2023-07-26 15:54 | SUR.PHASEII ---
PATIENT AND PARENTS STATE THAT PATIENT HAS H/O TACHYCARDIA X 2 YEARS; NORMAL HEARTRATE IS 130. HAS HAD CARDIOLOGY WORKUP. NO SOB.
[2023-07-26] MEDS: IBUPROFEN 400 MG TABLET PO (16:44)
== END 2023-07-26 16:58 | disposition home or self-care (01) ==
PROVIDERS: PCP Family Medicine; Visit Provider Surgery
PROC: 0FT44ZZ Resection of Gallbladder, Percutaneous Endoscopic Approach (ICD-10-PCS; CPT 47562; principal; 2023-07-26 13:00)
DX: K80.10 Calculus of gallbladder with chronic cholecystitis without obstruction (principal); J45.909 Unspecified asthma, uncomplicated; F32.A Depression, unspecified; F41.9 Anxiety disorder, unspecified; K21.9 Gastro-esophageal reflux disease without esophagitis; Z79.51 Long term (current) use of inhaled steroids
CPT/HCPCS: 47562; 36415; 82150; 86850; 86900; 86901; 88304; A9270; J0690; J1100; J1170; J1200; J1885; J2250; J2371; J2405; J2704; J3010; J7030; J7120

== ENCOUNTER 2024-08-09 03:59 | Emergency (ER) | payer OTHER, SELFPAY ==
[2024-08-09] VITALS (18 sets, daily range): BP systolic 113–126; BP diastolic 71–88; PULSE 109–136; RESP 7–25; TEMP 36.6–36.8; O2SAT 98–100
--- NOTE | ~2024-08-09 | CT_ITS ---
Clinical Indication: Tachycardia, elevated d-dimer CT Scan of the Chest with Contrast: Technique: Contiguous sections were acquired throughout the chest after intravenous administration of 100 cc of Omnipaque 350. Dose reduction technique was used on this scan by utilizing automated expos ure control and iterative reconstruction technique. The dose-length product (DLP) was 140.40 mGy-cm. Findings: There is no evidence of any significant mediastinal, hilar or axillary lymphadenopathy. There is no f illing defect in the pulmonary arterial tree to suggest pulmonary embolus. There is no evidence of ao rtic dissection or aneurysm. There is no evidence of pleural or pericardial effusion. The lungs are clear. No pulmonary nodules or infiltrates are noted. Images through the upper abdomen reveal no abnormalities. Impression: No evidence of pulmonary embolus, aortic dissection, or aortic aneurysm. Clear lungs. Reviewed, dictated and finalized at [facility]. [employer] Impression: No evidence of pulmonary embolus, aortic dissection, or aortic aneurysm. Clear lungs.
--- NOTE | 2024-08-09 04:03 | ECG_ITS ---
Test Date: 2024-08-09 04:07:52 Measurements Intervals [place] Rate: 108 P: 61 NE: 142 QRS: 50 QRSD: 86 T: 15 QT: 342 QTc: 459 Interpretive Statements SINUS TACHYCARDIA BORDERLINE ST-T WAVE ABNORMALITY- ANTEROLAT/INF LEADS BASELINE ARTIFACT- I, II, III, AVR, AVL, AVF, V1-V6 ABNORMAL ECG No previous ECG available for comparison Electronically Signed On 08-09-2024 05:41:05 STRUCTURAL ENGINEER by Daniel Ngo D.O.
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
[2024-08-09] MEDS: SODIUM CHLORIDE 0.9% IV 1,000 ML 999 ML IV CONT (04:15)
[2024-08-09 04:18] LABS: BEDSIDEPREGUCG Negative (Negative)
[2024-08-09 04:20] LABS: Basophils Percent Auto 0.3 % (0.2-1.2); Eosinophils Absolute Auto 0.1 K/mm3 (0-0.3); Hematocrit 32.7 % (37.0-47.0); Hemoglobin 11.1 g/dL (12.0-15.0); Immature Granulocyte Absolute 0.02 K/mm3 (0.00-0.031); Immature Granulocyte Percent A 0.3 % (0-0.5); Lymphocytes Absolute Auto 2.83 K/mm3 (0.9-3.2); Lymphocytes Percent Auto 45.8 % (18.3-44.2); Mean Corpuscular HGB Conc 33.9 g/dl (32-36); Mean Corpuscular Hemoglobin 29.8 pg (26-34); Mean Corpuscular Volume 87.9 fl (80-100); Mean Platelet Volume 9.5 fl (7.4-10.4); Monocytes Absolute Auto 0.5 K/mm3 (0.1-0.6); Monocytes Percent Auto 8.1 % (2.6-8.5); Neutrophils Absolute Auto 2.8 K/mm3 (1.3-6.7); Neutrophils Percent Auto 44.5 % (45.5-73.1); Platelet Count Result 271 k/mm3 (150-375); Red Blood Count 3.72 M/mm3 (4.2-5.4); White Blood Count 6.2 K/mm3 (4.5-10.0)
[2024-08-09 04:30] LABS: Alanine Aminotransferase 11 U/L (6-35); Albumin Level 3.8 g/dL (3.5-5.1); Alkaline Phosphatase 54 U/L (38-126); Anion Gap 13 mmol/L (4-12); Aspartate Amino Transferase 17 U/L (14-36); Bilirubin,Total 0.3 mg/dL (0.2-1.3); Blood Urea Nitrogen 9 mg/dL (7-17); Calcium 8.9 mg/dL (8.4-10.2); Carbon Dioxide 19 mmol/L (22-30); Chloride 105 mmol/L (98-107); Estimated CRCL calculation 80 ml/min; Estimated Glomerular Filt Rate > 60; Glucose 113 mg/dL (65-110); Potassium 3.2 mmol/L (3.4-5.0); Sodium 137 mmol/L (137-145)
[2024-08-09 04:39] LABS: Lipase 60 U/L (23-300)
[2024-08-09 04:43] LABS: D Dimer 0.62 ug/mL (<0.48)
[2024-08-09] MEDS: BELLADONNA ALK/PHENOB ELIX 10 ML, MAG HYDROX/ALUMINUM HYD/SIMETH 30 ML, LIDOCAINE HCL 2... PO (05:02)
[2024-08-09] MEDS: PANTOPRAZOLE SODIUM IV 40 MG VIAL IV PUSH (05:04)
[2024-08-09] MEDS: FAMOTIDINE 20 MG/2 ML VIAL IV PUSH (05:32)
[2024-08-09] MEDS: ONDANSETRON INJ 4 MG/2 ML VIAL IV PUSH (05:42)
--- NOTE | 2024-08-09 06:36 | PC.NURSE ---
ok to give remainder of the LR Bolus that was started by ems and paused upon arrival to ed, instead of pulling a 2nd liter of fluids.
== END 2024-08-09 07:39 | disposition home or self-care (01) ==
PROVIDERS: Emergency Provider Emergency Medicine; PCP Family Medicine
DX: K29.70 Gastritis, unspecified, without bleeding (principal); J45.909 Unspecified asthma, uncomplicated; F32.A Depression, unspecified; F41.1 Generalized anxiety disorder; Z90.49 Acquired absence of other specified parts of digestive tract; Z79.3 Long term (current) use of hormonal contraceptives; Z79.899 Other long term (current) drug therapy
CPT/HCPCS: 36415; 71275; 80053; 81025; 83690; 85025; 85380; 93005; 96361; 96374; 96375; 99284; A9270; J2405; J2470; J7030; Q9967

== ENCOUNTER 2024-08-11 08:25 | Observation (INO) | payer OTHER, SELFPAY ==
[2024-08-11] VITALS (10 sets, daily range): BP systolic 103–125; BP diastolic 63–104; PULSE 89–124; RESP 12–20; TEMP 36.1–36.5; O2SAT 97–100; BMI 22.6
--- NOTE | ~2024-08-11 | CT_ITS ---
EXAMINATION: CT abdomen pelvis w con DATE: 08/11/2024 12:01 INDICATION: Abdominal pain. TECHNIQUE: Computed tomography (CT) of the abdomen and pelvis was performed with 100 mL Omnipaque 350 intravenous contrast. Automated exposure control and iterative reconstruction technique were employe d. The dose-length product was 238.27 mGy-cm. COMPARISON: CT abdomen and pelvis 07/16/2023 FINDINGS: The visualized portions of the lung bases are clear without pneumonia or pleural effusion. The heart size is normal. No pericardial effusion. The liver and spleen are normal. There are changes of cholecystectomy. The pancreas, adrenal glands, and kidneys are normal. There are no dilated loops of bowel. The appendix is normal. There are no pathologically enlarged lymph nodes. There is no free intraperitoneal fluid. There is mild lumbar spondylosis. There is lumbar levoscoliosis. IMPRESSION: 1. No etiology for the patient's symptoms. Reviewed, dictated and finalized at location A. [facility]
[2024-08-11] MEDS: SODIUM CHLORIDE 0.9% IV 1,000 ML 999 ML IV CONT (09:19)
[2024-08-11] MEDS: PANTOPRAZOLE SODIUM IV 40 MG VIAL IV PUSH (09:20)
[2024-08-11] MEDS: diphenhydrAMINE HCl INJ 50 MG/ML VIAL 25 MG IV PUSH (09:20)
--- NOTE | 2024-08-11 09:27 | PC.NURSE ---
MD Downing notified of pt reported allergy to compazine. Compazine not administered. Verbal order given for zofran.
[2024-08-11] MEDS: ONDANSETRON INJ 4 MG/2 ML VIAL IV PUSH ×3 (09:30→20:32)
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
[2024-08-11 09:35] LABS: Basophils Percent Auto 0.2 % (0.2-1.2); Eosinophils Percent Auto 0.2 % (0-4.4); Hematocrit 39.4 % (37.0-47.0); Hemoglobin 13.4 g/dL (12.0-15.0); Immature Granulocyte Absolute 0.02 K/mm3 (0.00-0.031); Immature Granulocyte Percent A 0.4 % (0-0.5); Lymphocytes Absolute Auto 0.68 K/mm3 (0.9-3.2); Mean Corpuscular Hemoglobin 29.6 pg (26-34); Mean Platelet Volume 9.6 fl (7.4-10.4); Monocytes Absolute Auto 0.4 K/mm3 (0.1-0.6); Monocytes Percent Auto 7.7 % (2.6-8.5); Neutrophils Absolute Auto 3.5 K/mm3 (1.3-6.7); Neutrophils Percent Auto 76.5 % (45.5-73.1); Platelet Count Result 284 k/mm3 (150-375); Red Blood Count 4.53 M/mm3 (4.2-5.4); Red Cell Distribution Width 12.2 % (11.5-14.5); White Blood Count 4.5 K/mm3 (4.5-10.0)
[2024-08-11 09:42] LABS: Alanine Aminotransferase 16 U/L (6-35); Albumin Level 4.5 g/dL (3.5-5.1); Alkaline Phosphatase 69 U/L (38-126); Anion Gap 12 mmol/L (4-12); Aspartate Amino Transferase 23 U/L (14-36); Bilirubin,Total 0.4 mg/dL (0.2-1.3); Blood Urea Nitrogen 8 mg/dL (7-17); Calcium 9.2 mg/dL (8.4-10.2); Carbon Dioxide 20 mmol/L (22-30); Chloride 105 mmol/L (98-107); Estimated CRCL calculation 80 ml/min; Estimated Glomerular Filt Rate > 60; Glucose 110 mg/dL (65-110); Lipase 56 U/L (23-300); Potassium 3.3 mmol/L (3.4-5.0); Sodium 137 mmol/L (137-145)
--- NOTE | 2024-08-11 09:51 | PC.NURSE ---
Pt reports decrease in nausea and burning pain in her stomach since pharmacological intervention.
--- NOTE | 2024-08-11 10:18 | PC.NURSE ---
Pt able to ambulate to the bathroom independently. Gait steady.
[2024-08-11 10:55] LABS: Add Urine Microscopic? YES; Appearance Urine Clear (Clear); Bacteria Urine 1+ /hpf; Bilirubin Urine Negative (Negative); Blood Urine 2+ (Negative); Color Urine Yellow (Yellow); Glucose Urine UA Negative (Negative); Ketones Urine 2+ mg/dL (Negative); Leukocyte Esterase Ur Trace LEU/UL (Negative); Nitrate Urine Negative (Negative); Non Pathogenic Casts 0-2; Protein Urine 1+ mg/dL (Negative); RBC Urine 21-50 /hpf (0-2); Specific Grav Ur 1.022 (1.001-1.035); Squamous Epithelial Cell Urine Occasional /hpf (Few); WBC Urine 0-5 /hpf (0-3); pH Urine 6.5 (5.0-9.0)
--- NOTE | 2024-08-11 11:28 | PC.NURSE ---
Lab called to add on test to urine already collected.
[2024-08-11 11:50] LABS: Pregnancy On Board Control Positive; Urine Pregnancy Test Negative
[2024-08-11] MEDS: KCL 20 MEQ/SW 100 ML 100 ML 50 MEQ IVPB (14:36)
--- NOTE | 2024-08-11 15:58 | ADMGEN ---
This patient, Jazlyn Ford, was admitted to 3 [facility] Surg Room 312-01. Patient/family oriented to hospital policies and general routines including ID bracelet, bed and alarms, visiting hours, pain management, procedures, bathroom and other care routines, personal items, smoking policy, room service/diet, and visiting hours. Information on how to activate the Rapid Response Team has been discussed. Patient/Family are encouraged to report perceived risks to care and to ask questions if they do not understand what they are told or what they should do.
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
[2024-08-11] MEDS: KCL 20 MEQ/D5/0.45% SOD CHL 1,000 ML 125 ML IV CONT (16:23)
[2024-08-11] MEDS: POTASSIUM CHLORIDE 20 MEQ ER TABLET PO (16:23)
[2024-08-11] MEDS: busPIRone HCL 5 MG TABLET PO (20:31)
[2024-08-11] MEDS: FAMOTIDINE 20 MG/2 ML VIAL IV PUSH (23:09)
[2024-08-11] MEDS: CALCIUM CARBONATE (TUMS) 500 MG (200 MG ELEMENTAL) PO (23:09)
[2024-08-12] MEDS: SODIUM CHLORIDE 0.9% IV 1,000 ML 100 ML IV CONT (01:10)
[2024-08-12 05:28] VITALS: BP 100/64; PULSE 79; RESP 13; TEMP 36.2; O2SAT 98
[2024-08-12] MEDS: ONDANSETRON INJ 4 MG/2 ML VIAL IV PUSH ×4 (06:26→23:11)
[2024-08-12 06:56] LABS: Hematocrit 33.1 % (37.0-47.0); Hemoglobin 11.1 g/dL (12.0-15.0); Mean Corpuscular HGB Conc 33.5 g/dl (32-36); Mean Corpuscular Hemoglobin 29.6 pg (26-34); Mean Corpuscular Volume 88.3 fl (80-100); Mean Platelet Volume 9.8 fl (7.4-10.4); Platelet Count Result 211 k/mm3 (150-375); Red Blood Count 3.75 M/mm3 (4.2-5.4); Red Cell Distribution Width 12.3 % (11.5-14.5); White Blood Count 3.1 K/mm3 (4.5-10.0)
[2024-08-12 07:07] LABS: Anion Gap 5 mmol/L (4-12); Blood Urea Nitrogen 3 mg/dL (7-17); Calcium 7.8 mg/dL (8.4-10.2); Carbon Dioxide 22 mmol/L (22-30); Chloride 109 mmol/L (98-107); Estimated CRCL calculation 92 ml/min; Estimated Glomerular Filt Rate > 60; Glucose 92 mg/dL (65-110); Potassium 3.3 mmol/L (3.4-5.0); Sodium 136 mmol/L (137-145)
[2024-08-12] MEDS: busPIRone HCL 5 MG TABLET PO ×2 (08:00→21:12)
[2024-08-12] MEDS: FLUoxetine HCL 20 MG CAPSULE 40 MG PO (08:00)
[2024-08-12] MEDS: PANTOPRAZOLE SODIUM IV 40 MG VIAL IV PUSH (08:01)
[2024-08-12] MEDS: ACETAMINOPHEN 325 MG TABLET 650 MG PO (09:08)
[2024-08-12 10:21] VITALS: O2SAT 100
[2024-08-12] MEDS: CALCIUM CARBONATE (TUMS) 500 MG (200 MG ELEMENTAL) PO ×2 (11:15→21:12)
[2024-08-12 14:00] VITALS: BP 101/71; PULSE 85; RESP 20; TEMP 36.1; O2SAT 100
--- NOTE | 2024-08-12 14:42 | P.PNIM_ITS ---
Progress Note: A&P Assessment and Plan (1) Gastritis: Code(s): K29.70 - Gastritis, unspecified, without bleeding Status: Acute Assessment and Plan: - Findings on EGD 07/27 per patient. - Continue Protonix BID. (2) Intractable nausea and vomiting: Code(s): R11.2 - Nausea with vomiting, unspecified Status: Acute Assessment and Plan: - Unclear etiology. - EGD done about 2 wks ago per pt only showed gastritis and hiatal hernia. - No emesis episodes inpatient so far. - GI cocktail ordered. - Continue supportive care. (3) Hypokalemia: Code(s): E87.6 - Hypokalemia Status: Acute Assessment and Plan: - Replace and monitor. (4) Dehydration: Code(s): E86.0 - Dehydration Status: Acute Assessment and Plan: - Given fluid bolus in ER and IVF on presentation. - Labs currently fairly wnl. - Encourage with PO fluids. - Monitor labs and replace lytes as needed. (5) Generalized anxiety disorder: Code(s): F41.1 - Generalized anxiety disorder Status: Acute Assessment and Plan: - Resume Buspar. Plan Started on GI cocktail. Continue supportive care and consider GI consult if no improvement. Time Spent With Patient Time with patient: 15 - 25 minutes Subjective Date/time seen: 08/12/24 14:42 Patient reports intractable nausea and upper epigastric pain that she's been battling with for almost 3 yrs now. She reports not being able to eat much due to the nausea and if she manages to eat, sometimes she vomits moments later. Patient had an EGD at [facility] about 2 wks ago and was informed she had gastritis and hiatal hernia, pt advised to start taking protonix. She states she wasn't given any follow-up if symptoms re-occurred so she came here for further eval. Interval history: Patient calm on bedrest with family bedside, looks to be in no acute distress. Patient presented with intractable nausea and sometimes vomiting, preventing her from tolerating meals. Patient was seen at [facility]SH and had EGD done that showed gastritis and hiatal hernia. She was started on Protonix BID and Zofran PO, but she states symptoms not improved. Review of Systems Review of Systems: 12 systems were reviewed and are negativ e except for as per HPI. Exam Narrative: General: Well appearing and in no acute distress. Weight: 54.5 kg. BMI: 22.7. HEENT: PERRL, EOMI. Sclera anicteric. Moist mucous membranes. Neck: Supple. Respiratory: Lungs clear bilaterally. Cardiovascular: Regular rate and rhythm with S1-S2. Gastrointestinal: Abdomen is soft, non-tender, nondistended with positive bowel sounds. Skin: Warm and dry. Extremities: No cyanosis, clubbing, or edema. Radial and pedal pulses 2+. Neurological: Well oriented. Cranial nerves II-XII grossly intact. Psychiatric: Pleasant and cooperative with normal mood and affect. Objective Data Vital Signs Vital Signs: Vital Signs - 24 hr 08/11/24 15:57 08/11/24 16:13 08/11/24 21:02 Temperature 97.7 F 97.0 F L Pulse Rate 102 H 89 Respiratory Rate 18 16 Blood Pressure 111/71 103/63 Pulse Oximetry 100 100 Oxygen Delivery Room Air 08/11/24 20:00 08/12/24 05:28 08/12/24 10:21 Temperature 97.1 F L Pulse Rate 89 79 Respiratory Rate 16 13 Blood Pressure 100/64 Pulse Oximetry 100 98 100 Oxygen Delivery Room Air Room Air 08/12/24 14:00 Temperature 96.9 F L Pulse Rate 85 Respiratory Rate 20 Blood Pressure 101/71 Pulse Oximetry 100 Oxygen Delivery Intake/Output Intake/Output: Intake & Output 08/09/24 08/10/24 08/11/24 08/12/24 23:59 23:59 23:59 23:59 Intake Total 1240 318 Balance 1240 318 Meds/Results Medications: Active Medications Generic Name Dose Route Start Last Admin Trade Name Freq PRN Reason Stop Dose Admin Acetaminophen 650 mg 08/12/24 09:02 08/12/24 09:08 Acetaminophen 325 Mg Tablet PO 650 mg Q6H PRN Administration Mild Pain (1-3) or Fever Albuterol 1 puff 08/11/24 17:16 Albuterol Sulfate (*Sp) Aerosol 1 Puff INHALATION Q4H PRN Wheezing Buspirone HCl 5 mg 08/11/24 21:00 08/12/24 08:00 Buspirone Hcl 5 Mg Tablet PO 5 mg Q12HR LAMBERT Administration Calcium Carbonate 200 mg 08/11/24 21:39 08/12/24 11:15 Calcium Carbonate (Tums) 500 Mg (200 Mg Elemental) PO 200 mg Q6H PRN Administration Indigestion Fluoxetine HCl 40 mg 08/12/24 09:00 08/12/24 08:00 Fluoxetine Hcl 20 Mg Capsule PO 40 mg DAILY LAMBERT Administration Ondansetron HCl 4 mg 08/11/24 14:29 08/12/24 11:18 Ondansetron Inj 4 Mg/2 Ml Vial IV PUSH 4 mg Q4H PRN Administration Nausea Pantoprazole Sodium 40 mg 08/12/24 09:00 08/12/24 08:01 Pantoprazole Sodium Iv 40 Mg Vial IV PUSH 40 mg QAM LAMBERT Administration Radiology Results: ITS Impressions Abdomen/Pelvis CT 08/11/24 12:19 IMPRESSION: 1. No etiology for the patient's symptoms. Labs Labs: Laboratory Results - last 24 hr 08/12/24 06:16 WBC 3.1 L RBC 3.75 L Hgb 11.1 L Hct 33.1 L MCV 88.3 MCH 29.6 MCHC 33.5 RDW 12.3 Plt Count 211 MPV 9.8 Sodium 136 L Potassium 3.3 L Chloride 109 H Carbon Dioxide 22 Anion Gap 5 BUN 3 L D Creatinine 0.60 L Estim Creat Clear Calc 92 Estimated GFR > 60 Glucose 92 Calcium 7.8 L Magnesium 2.0 Quality VTE Prophylaxis VTE prophylaxis: mechanical ordered Hospitalist [facility] Advance Care Plan I have confirmed that the patient's Advanced Care Plan is present, code status is documented, or surrogate decision maker is listed in patient medical record.: Yes Medication Reconciliation I have utilized all available resources to obtain, update and review the patients current medications (includes all prescriptions, OTC, herbals, can nabis, and nutritional supplements).: Yes
[2024-08-12] MEDS: POTASSIUM CHLORIDE 20 MEQ ER TABLET 40 MEQ PO (15:33)
[2024-08-12] MEDS: BELLADONNA ALK/PHENOB ELIX 10 ML, MAG HYDROX/ALUMINUM HYD/SIMETH 30 ML, LIDOCAINE HCL 2... PO ×2 (15:34→21:12)
[2024-08-12 20:00] VITALS: PULSE 59; RESP 14; O2SAT 98
[2024-08-12 21:20] VITALS: BP 99/69; PULSE 59; RESP 14; TEMP 36.3; O2SAT 98
[2024-08-13] MEDS: ONDANSETRON INJ 4 MG/2 ML VIAL IV PUSH ×3 (05:08→18:21)
[2024-08-13 05:12] VITALS: BP 102/53; PULSE 92; RESP 14; TEMP 36.2; O2SAT 100
[2024-08-13] MEDS: CALCIUM CARBONATE (TUMS) 500 MG (200 MG ELEMENTAL) PO ×3 (07:56→21:00)
[2024-08-13] MEDS: ACETAMINOPHEN 325 MG TABLET 650 MG PO (07:57)
[2024-08-13] MEDS: FLUoxetine HCL 20 MG CAPSULE 40 MG PO (08:00)
[2024-08-13] MEDS: PANTOPRAZOLE SODIUM IV 40 MG VIAL IV PUSH ×2 (08:01→21:00)
[2024-08-13] MEDS: busPIRone HCL 5 MG TABLET PO ×2 (08:01→21:00)
[2024-08-13] MEDS: BELLADONNA ALK/PHENOB ELIX 10 ML, MAG HYDROX/ALUMINUM HYD/SIMETH 30 ML, LIDOCAINE HCL 2... PO ×2 (08:02→12:11)
[2024-08-13 09:33] LABS: Potassium 3.5 mmol/L (3.4-5.0)
--- NOTE | 2024-08-13 11:53 | P.PNIM_ITS ---
Progress Note: A&P Assessment and Plan (1) Gastritis: Code(s): K29.70 - Gastritis, unspecified, without bleeding Status: Inactive Assessment and Plan: - Findings on EGD 07/27 per patient. - Continue Protonix BID. (2) Intractable nausea and vomiting: Code(s): R11.2 - Nausea with vomiting, unspecified Status: Acute Assessment and Plan: - Unclear etiology. - EGD done about 2 wks ago per pt only showed gastritis and hiatal hernia. - No emesis episodes inpatient so far and tolerating meals fairly well. - GI consulted for further recommendations. - GI cocktail given with fair results, pt stating medication making her gag. - Continue supportive care. (3) Hypokalemia: Code(s): E87.6 - Hypokalemia Status: Acute Assessment and Plan: - Replaced. Currently wnl. (4) Dehydration: Code(s): E86.0 - Dehydration Status: Acute Assessment and Plan: - Given fluid bolus in ER and IVF on presentation. - Labs currently fairly wnl. - Encouraged with PO fluids. - Continue to monitor labs and replace electrolytes as needed. (5) Generalized anxiety disorder: Code(s): F41.1 - Generalized anxiety disorder Status: Acute Assessment and Plan: - Stable. - Resume Buspar. Plan GI consulted for further recommendations as pt reporting no significant improvement in symptoms. Continue supportive care. Time Spent With Patient Time with patient: 15 - 25 minutes Subjective Date/time seen: 08/13/24 11:53 Patient calm on bedrest. States he woke up in the middle of the night with nausea and wasn't able to sleep much. States did fairly with breakfast and was nauseated but no emesis. Interval history: Patient calm on bedrest and looks to be in no acute distress. Patient presented with intractable nausea and sometimes vomiting, preventing her from tolerating meals. Patient was seen at [facility]SH and had EGD done that showed gastritis and hiatal hernia. She was started on Protonix BID and Zofran PO, but she states symptoms not improving. Review of Systems Review of Systems: 12 systems were reviewed and are negativ e except for as per HPI. Exam 2 Narrative: General: Well appearing and in no acute distress. Weight: 57.9 kg. BMI: 24.1. HEENT: PERRL, EOMI. Sclera anicteric. Moist mucous membranes. Neck: Supple. Respiratory: Lungs clear bilaterally. Cardiovascular: Regular rate and rhythm with S1-S2. Gastrointestinal: Abdomen is soft, non-tender, nondistended with positive bowel sounds. Skin: Warm and dry. Extremities: No cyanosis, clubbing, or edema. Radial and pedal pulses 2+. Neurological: Well oriented. Cranial nerves II-XII grossly intact. Psychiatric: Pleasant and cooperative with normal mood and affect. Objective Data Vital Signs Vital Signs: Vital Signs - 24 hr 08/12/24 14:00 08/12/24 21:20 08/12/24 20:00 Temperature 96.9 F L 97.3 F L Pulse Rate 85 59 L 59 L Respiratory Rate 20 14 14 Blood Pressure 101/71 99/69 L Pulse Oximetry 100 98 98 Oxygen Delivery Room Air 08/13/24 05:12 Temperature 97.1 F L Pulse Rate 92 Respiratory Rate 14 Blood Pressure 102/53 L Pulse Oximetry 100 Oxygen Delivery Intake/Output Intake/Output: Intake & Output 08/10/24 08/11/24 08/12/24 08/13/24 23:59 23:59 23:59 23:59 Intake Total 1240 558 440 Balance 1240 558 440 Meds/Results Medications: Active Medications Generic Name Dose Route Start Last Admin Trade Name Freq PRN Reason Stop Dose Admin Acetaminophen 650 mg 08/12/24 09:02 08/13/24 07:57 Acetaminophen 325 Mg Tablet PO 650 mg Q6H PRN Administration Mild Pain (1-3) or Fever Albuterol 1 puff 08/11/24 17:16 Albuterol Sulfate (*Sp) Aerosol 1 Puff INHALATION Q4H PRN Wheezing Buspirone HCl 5 mg 08/11/24 21:00 08/13/24 08:01 Buspirone Hcl 5 Mg Tablet PO 5 mg Q12HR LAMBERT Administration Calcium Carbonate 200 mg 08/11/24 21:39 08/13/24 07:56 Calcium Carbonate (Tums) 500 Mg (200 Mg Elemental) PO 200 mg Q6H PRN Administration Indigestion Belladonna Alkaloids/ 0 ml 08/12/24 15:00 08/13/24 08:02 Phenobarbital 10 ml/ Al Hydrox PO 08/13/24 13:01 50 ml /Mg Hydrox/Simethicone 30 ml/ TID LAMBERT Administration Lidocaine HCl 10 ml Fluoxetine HCl 40 mg 08/12/24 09:00 08/13/24 08:00 Fluoxetine Hcl 20 Mg Capsule PO 40 mg DAILY LAMBERT Administration Ondansetron HCl 4 mg 08/11/24 14:29 08/13/24 10:53 Ondansetron Inj 4 Mg/2 Ml Vial IV PUSH 4 mg Q4H PRN Administration Nausea Pantoprazole Sodium 40 mg 08/12/24 09:00 08/13/24 08:01 Pantoprazole Sodium Iv 40 Mg Vial IV PUSH 40 mg QAM LAMBERT Administration Radiology Results: ITS Impressions Abdomen/Pelvis CT 08/11/24 12:19 IMPRESSION: 1. No etiology for the patient's symptoms. Labs Labs: Laboratory Results - last 24 hr 08/13/24 09:12 Potassium 3.5 Quality VTE Prophylaxis VTE prophylaxis: mechanical ordered Hospitalist [facility] Advance Care Plan I have confirmed that the patient's Advanced Care Plan is present, code status is documented, or surrogate decision maker is listed in patient medical record.: Yes Medication Reconciliation I have utilized all available resources to obtain, update and review the patients current medications (includes all prescriptions, OTC, herbals, cannabis, and nutritional supplements).: Yes
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
[2024-08-13 14:00] VITALS: BP 100/70; PULSE 76; RESP 18; TEMP 36.3; O2SAT 100
[2024-08-13 22:00] VITALS: BP 97/65; PULSE 72; RESP 12; TEMP 36.6; O2SAT 100
[2024-08-14 06:00] VITALS: BP 92/59; PULSE 93; RESP 12; TEMP 36.3; O2SAT 100
[2024-08-14] MEDS: FLUoxetine HCL 20 MG CAPSULE 40 MG PO (07:59)
[2024-08-14] MEDS: busPIRone HCL 5 MG TABLET PO (07:59)
[2024-08-14] MEDS: PANTOPRAZOLE SODIUM IV 40 MG VIAL IV PUSH (08:00)
[2024-08-14] MEDS: ONDANSETRON INJ 4 MG/2 ML VIAL IV PUSH ×2 (08:01→13:51)
[2024-08-14] MEDS: CALCIUM CARBONATE (TUMS) 500 MG (200 MG ELEMENTAL) PO ×2 (08:03→13:55)
[2024-08-14 08:10] VITALS: BP 98/68
[2024-08-14] MEDS: POTASSIUM CHLORIDE 20 MEQ ER TABLET 40 MEQ PO ×2 (10:12→16:46)
[2024-08-14] MEDS: ACETAMINOPHEN 325 MG TABLET 650 MG PO (10:12)
--- NOTE | 2024-08-14 11:00 | PM.IMPN ---
Subjective Date/time seen: 08/14/24 11:00 Review of Systems Review of Systems: All systems reviewed & are unremarkable except as noted in HPI and below Objective Data Vital Signs Vital Signs: Vital Signs - 24 hr 08/13/24 14:00 08/13/24 20:00 08/13/24 22:00 Temperature 97.3 F L 97.8 F Pulse Rate 76 72 Respiratory Rate 18 12 Blood Pressure 100/70 97/65 L Pulse Oximetry 100 100 Oxygen Delivery Room Air 08/14/24 06:00 08/14/24 08:10 Temperature 97.3 F L Pulse Rate 93 Respiratory Rate 12 Blood Pressure 92/59 L 98/68 L Pulse Oximetry 100 Oxygen Delivery Intake/Output Intake/Output: Intake & Output 08/11/24 08/12/24 08/13/24 08/14/24 23:59 23:59 23:59 23:59 Intake Total 1240 558 800 515 Balance 1240 558 800 515 Meds/Results Medications: Active Medications Generic Name Dose Route Start Last Admin Trade Name Freq PRN Reason Stop Dose Admin Acetaminophen 650 mg 08/12/24 09:02 08/14/24 10:12 Acetaminophen 325 Mg Tablet PO 650 mg Q6H PRN Administration Mild Pain (1-3) or Fever Albuterol 1 puff 08/11/24 17:16 Albuterol Sulfate (*Sp) Aerosol 1 Puff INHALATION Q4H PRN Wheezing Buspirone HCl 5 mg 08/11/24 21:00 08/14/24 07:59 Buspirone Hcl 5 Mg Tablet PO 5 mg Q12HR LAMBERT Administration Calcium Carbonate 200 mg 08/11/24 21:39 08/14/24 08:03 Calcium Carbonate (Tums) 500 Mg (200 Mg Elemental) PO 200 mg Q6H PRN Administration Indigestion Fluoxetine HCl 40 mg 08/12/24 09:00 08/14/24 07:59 Fluoxetine Hcl 20 Mg Capsule PO 40 mg DAILY LAMBERT Administration Ondansetron HCl 4 mg 08/11/24 14:29 08/14/24 08:01 Ondansetron Inj 4 Mg/2 Ml Vial IV PUSH 4 mg Q4H PRN Administration Nausea Pantoprazole Sodium 40 mg 08/13/24 21:00 08/14/24 08:00 Pantoprazole Sodium Iv 40 Mg Vial IV PUSH 40 mg Q12HR LAMBERT Administration Radiology Results: ITS Impressions Abdomen/Pelvis CT 08/11/24 12:19 IMPRESSION: 1. No etiology for the patient's symptoms.
[2024-08-14 14:00] VITALS: BP 114/69; PULSE 89; RESP 20; TEMP 36.1; O2SAT 100
--- NOTE | 2024-08-14 14:23 | WPDGIPROGNO ---
Progress Note: A&P Assessment and Plan (1) Intractable nausea and vomiting: Code(s): R11.2 - Nausea with vomiting, unspecified Status: Acute Assessment and Plan: eating more, no more emesis continue with antiemetics already established with GI doctor and will complete GES as outpatient (2) Epigastric pain: Code(s): R10.13 - Epigastric pain Status: Acute (3) Generalized anxiety disorder: Code(s): F41.1 - Generalized anxiety disorder Status: Acute (4) Dehydration: Code(s): E86.0 - Dehydration Status: Acute Assessment and Plan: treated (5) Hypokalemia: Code(s): E87.6 - Hypokalemia Status: Acute Assessment and Plan: repleted Subjective Date/time seen: 08/14/24 14:23 Interval history: still with nausea but better and able to keep food down Review of Systems Review of Systems: All systems reviewed & are unremarkable except as noted in HPI and below Exam Const: General: comfortable and no acute distress HENMT: Face/Nose/Sinus: Normal nares present Eyes: General: appearance normal, both eyes and all related structures Neck: Neck: supple Resp: Auscultation: clear to auscultation bilaterally Cardio: Rate: regular rate Rhythm: regular rhythm GI: Inspection: non-distended GI Palp: Yes Soft to palpation and No Tenderness to palpation present (GI) Auscultation: normal bowel sounds Skin: General skin exam: normal color Neuro: General: gait normal Speech: normal speech Extrem: General: normal to inspection Psych: Mental Status: mental status grossly normal Objective Data Vital Signs Vital Signs: Vital Signs - 24 hr 08/13/24 20:00 08/13/24 22:00 08/14/24 06:00 Temperature 97.8 F 97.3 F L Pulse Rate 72 93 Respiratory Rate 12 12 Blood Pressure 97/65 L 92/59 L Pulse Oximetry 100 100 Oxygen Delivery Room Air 08/14/24 08:10 Temperature Pulse Rate Respiratory Rate Blood Pressure 98/68 L Pulse Oximetry Oxygen Delivery Intake/Output Intake/Output: Intake & Output 08/11/24 08/12/24 08/13/24 08/14/24 23:59 23:59 23:59 23:59 Intake Total 1240 558 800 755 Balance 1240 558 800 755 Meds/Results Medications: Active Medications Generic Name Dose Route Start Last Admin Trade Name Freq PRN Reason Stop Dose Admin Acetaminophen 650 mg 08/12/24 09:02 08/14/24 10:12 Acetaminophen 325 Mg Tablet PO 650 mg Q6H PRN Administration Mild Pain (1-3) or Fever Albuterol 1 puff 08/11/24 17:16 Albuterol Sulfate (*Sp) Aerosol 1 Puff INHALATION Q4H PRN Wheezing Buspirone HCl 5 mg 08/11/24 21:00 08/14/24 07:59 Buspirone Hcl 5 Mg Tablet PO 5 mg Q12HR LAMBRET Administration Calcium Carbonate 200 mg 08/11/24 21:39 08/14/24 13:55 Calcium Carbonate (Tums) 500 Mg (200 Mg Elemental) PO 200 mg Q6H PRN Administration Indigestion Fluoxetine HCl 40 mg 08/12/24 09:00 08/14/24 07:59 Fluoxetine Hcl 20 Mg Capsule PO 40 mg DAILY LAMBERT Administration Ondansetron HCl 4 mg 08/11/24 14:29 08/14/24 13:51 Ondansetron Inj 4 Mg/2 Ml Vial IV PUSH 4 mg Q4H PRN Administration Nausea Pantoprazole Sodium 40 mg 08/13/24 21:00 08/14/24 08:00 Pantoprazole Sodium Iv 40 Mg Vial IV PUSH 40 mg Q12HR LAMBERT Administration Radiology Results: ITS Impressions Abdomen/Pelvis CT 08/11/24 12:19 IMPRESSION: 1. No etiology for the patient's symptoms.
--- NOTE | 2024-08-14 15:50 | P.DS_ITS ---
DS: Admitting Diagnosis Discharge Date 08/14/2024 Admitting Diagnosis Nausea/ Vomiting/ Diarrhea DS: Discharge Diagnosis Discharge Diagnosis (1) Intractable nausea and vomiting: Code(s): R11.2 - Nausea with vomiting, unspecified Status: Acute (2) Gastritis: Code(s): K29.70 - Gastritis, unspecified, without bleeding Status: Acute (3) Hypokalemia: Code(s): E87.6 - Hypokalemia Status: Acute (4) Generalized anxiety disorder: Code(s): F41.1 - Generalized anxiety disorder Status: Acute (5) Dehydration: Code(s): E86.0 - Dehydration Status: Acute DS: Summary Hospital Course Hospital Course: This is a 24-year-old female with history of cholecystectomy, anxiety, posttraumatic stress disorder, and MTHFR mutation who presented to the emergency department for evaluation of abdominal pain, nausea, and vomiting. The patient provides the following history. She was seen in the emergency department in the floor layer apprentice hours on 08/09/2024 after awaking in the middle of the night with rapid heart rate in epigastric pain. On EMS arrival her heart rate was in the 180s for which she was given adenosine. By the time she reached the ED she was in sinus tachycardia with rates in the 110s. She was stable thereafter and was discharged home with instructions to follow-up with GI as an outpatient. It should be noted that the patient had an EGD done at [facility] a couple of weeks ago which showed some gastritis and a hiatal hernia. The GI doctor told her to take her pantoprazole twice a day and that she did not need to follow-up with him. Unfortunately she continues to have frequent epigastric pain which she attributes to GERD and gastritis and nausea on a daily basis. She has been on Zofran and Protonix for going on 1 year which does not seem to be helping with her symptoms. Since Wednesday she has been vomiting pretty uncontrollably and has not been able to keep down even fluids. She also endorses a subjective fever and states that she feels dehydrated she has not been able to keep fluids down for couple of days. Abdominal CT showed: FINDINGS: The visualized portions of the lung bases are clear without pneumonia or pleural effusion. The heart size is normal. No pericardial effusion. The liver and spleen are normal. There are changes of cholecystectomy. The pancreas, adrenal glands, and kidneys are normal. There are no dilated loops of bowel. The appendix is normal. There are no pathologically enlarged lymph nodes. There is no free intraperitoneal fluid. There is mild lumbar spondylosis. There is lumbar levoscoliosis. IMPRESSION: 1. No etiology for the patient's symptoms. Patient improved with Pantoprazole 40 mg ivpb q 12, Ondansetron 4 mg ivp q 4 PRN, and Calcium Carbonate 200 mg PO q 6 PRN. Tolerating food. Patient to have an outpatient gastric emptying test on Wednesday ordered through her GI doctor in [place]. Status at Discharge Functional status at discharge: independent ambulation Overall status at discharge: patient is progressing back to baseline Time Spent with Patient Time attestation: Total time spent providing and/or coordinating discharge services: Time spent: Greater than 30 minutes Exam Const: General: comfortable and no acute distress Eyes: Sclera: sclerae normal Neck: Neck: supple Resp: Effort & Inspection: normal respiratory effort Auscultation: clear to auscultation bilaterally Cardio: Rate: regular rate Rhythm: regular rhythm GI: GI Palp: Yes Soft to palpation Auscultation: normal bowel sounds Skin: General skin exam: no rashes or lesions noted Neuro: General: gait normal Extrem: General: normal to inspection Psych: Mental Status: mental status grossly normal Affect: normal affect Discharge Plan Discharge Attending physician on discharge: Dylon Angelo Consulting providers: Jordy Sal Discharging Clinician: Evelin Neves Anticipated Discharge Date/Time: 08/14/24 16:30 Patient Disposition: Home, Self-Care Activity: may shower Diet: regular Discharge Instructions: * Follow up with GI doctor in 1-2 weeks. If difficulty getting in can set up appointment at Dr. Sal office [phone]. * Gastric emptying test on Wednesday. * Call provider if you develop vomiting that cannot be controlled with Ondansetron. * Eat potassium rich foods. Patient Instructions: Antibiotic Form, Gastritis (DC), Hypokalemia (DC), Acute Nausea and Vomiting (DC) Stand Alone Forms: General Discharge Information Follow-up/Referrals: Sunshine,Paulo Bee MD [Primary Care Provider] - 1 Week Discharge Medications: New calcium carbonate 500 mg calcium (1,250 mg) Tablet,Chewable 200 mg PO Q6H PRN (Reason: Indigestion) Qty: 30 0RF Continued albuterol sulfate [ProAir HFA] 90 mcg/actuation HFA aerosol inhaler 1 puff INHALATION Q4H PRN (Reason: Wheezing) ondansetron 4 mg tablet,disintegrating 4 mg PO Q8H PRN (Reason: nausea and vomiting) Qty: 20 0RF BuSpar 5 mg PO Q12H fluoxetine 10 mg tablet 40 mg PO DAILY norethindrone-e.estradiol-iron 1 mg-20 mcg (21)/75 mg (7) tablet 1 tablet PO HS hydrocodone-acetaminophen 5-325 mg tablet 1 tablet PO Q12H PRN (Reason: pain) Qty: 14 0RF pantoprazole [Protonix] 40 mg Tablet,Delayed Release (Dr/Ec) 40 mg PO Q12H Date of admission: 08/11/24 14:30 Primary Care Provider: SunshinePaulo Admitting Provider: Thierry Huerta Attending physician on admission: Thierry Huerta Condition: Stable Hospitalist MIPS Heart Failure (Exclusion) Patient has history of Heart Transplant or Left Ventricular Assistive Device?: No IF YES, STOP HERE Heart Failure (Qualifier) Patient has current or prior documentation of LVEF less than or equal to 40%, or mod/servere depressed LVSF?: No IF NO, STOP HERE
[2024-08-14 16:21] LABS: Basophils Percent Auto 0.4 % (0.2-1.2); Eosinophils Absolute Auto 0.1 K/mm3 (0-0.3); Eosinophils Percent Auto 1.5 % (0-4.4); Hematocrit 33.6 % (37.0-47.0); Hemoglobin 11.6 g/dL (12.0-15.0); Immature Granulocyte Absolute 0.02 K/mm3 (0.00-0.031); Immature Granulocyte Percent A 0.4 % (0-0.5); Lymphocytes Absolute Auto 2.54 K/mm3 (0.9-3.2); Mean Corpuscular HGB Conc 34.5 g/dl (32-36); Mean Corpuscular Hemoglobin 29.7 pg (26-34); Mean Corpuscular Volume 85.9 fl (80-100); Mean Platelet Volume 9.6 fl (7.4-10.4); Monocytes Absolute Auto 0.4 K/mm3 (0.1-0.6); Monocytes Percent Auto 6.5 % (2.6-8.5); Neutrophils Absolute Auto 2.4 K/mm3 (1.3-6.7); Neutrophils Percent Auto 44.2 % (45.5-73.1); Platelet Count Result 267 k/mm3 (150-375); Red Blood Count 3.91 M/mm3 (4.2-5.4); Red Cell Distribution Width 12.1 % (11.5-14.5); White Blood Count 5.4 K/mm3 (4.5-10.0)
[2024-08-14 16:31] LABS: Alanine Aminotransferase 30 U/L (6-35); Albumin Level 4.1 g/dL (3.5-5.1); Alkaline Phosphatase 64 U/L (38-126); Anion Gap 10 mmol/L (4-12); Aspartate Amino Transferase 27 U/L (14-36); Bilirubin,Total 0.2 mg/dL (0.2-1.3); Blood Urea Nitrogen 7 mg/dL (7-17); Calcium 8.9 mg/dL (8.4-10.2); Carbon Dioxide 23 mmol/L (22-30); Chloride 104 mmol/L (98-107); Estimated CRCL calculation 108 ml/min; Estimated Glomerular Filt Rate > 60; Glucose 117 mg/dL (65-110); Potassium 3.3 mmol/L (3.4-5.0); Sodium 137 mmol/L (137-145)
== END 2024-08-14 17:15 | disposition home or self-care (01) ==
LOC: ANHED 14:30 → ANH3MEDSUR 15:36
PROVIDERS: Nurse Practitioner Adult Health; Nurse Practitioner Family; Physician Assistant; Admitting Provider General Practice; Emergency Provider Emergency Medicine; PCP Family Medicine; Visit Provider Internal Medicine
DX: R11.2 Nausea with vomiting, unspecified (principal); K29.70 Gastritis, unspecified, without bleeding; K44.9 Diaphragmatic hernia without obstruction or gangrene; E87.6 Hypokalemia; E86.0 Dehydration; F41.1 Generalized anxiety disorder; K21.9 Gastro-esophageal reflux disease without esophagitis; J45.909 Unspecified asthma, uncomplicated; F32.A Depression, unspecified; F43.10 Post-traumatic stress disorder, unspecified; E72.12 Methylenetetrahydrofolate reductase deficiency; Z79.51 Long term (current) use of inhaled steroids; Z79.899 Other long term (current) drug therapy; Z90.49 Acquired absence of other specified parts of digestive tract
CPT/HCPCS: 36415; 74177; 80048; 80053; 81001; 81025; 83690; 83735; 84132; 85025; 85027; 96361; 96374; 96375; 96376; 99285; A9270; G0378; J1200; J2405; J2470; J3480; J7030; J7050; Q9967

== ENCOUNTER 2025-01-15 10:13 | Emergency (ER) | payer OTHER, SELFPAY ==
--- NOTE | ~2025-01-15 | CT_ITS ---
EXAMINATION: CT abdomen pelvis w con DATE: 01/15/2025 13:15 INDICATION: Nausea and vomiting. Gastroparesis. TECHNIQUE: Computed tomography (CT) of the abdomen and pelvis was performed with 100 mL Omnipaque-350 intravenous contrast. Automated exposure control and iterative reconstruction technique were employe d. The dose-length product was 177.37 mGy-cm. COMPARISON: 08/11/2024 FINDINGS: Lung bases are clear. Heart size is normal. No pericardial or pleural effusion. Cholecystectomy clips the gallbladder fossa. Liver, spleen, pancreas, bilateral adrenal glands and kidneys are normal. Cement els including the appendix are normal. Bladder, anteverted uterus and bilateral adnexa are unremarkab le. No free intraperitoneal gas or fluid. No pathologically enlarged abdominal or pelvic lymphadenopa thy. 25 degrees lumbar levoscoliosis with mild spondylosis. IMPRESSION: 1. No acute intra-abdominal/pelvic process. Reviewed, dictated and finalized at location A.
[2025-01-15 10:33] VITALS: BP 130/92; PULSE 139; RESP 18; TEMP 36.6; O2SAT 100
--- NOTE | 2025-01-15 10:37 | ECG_ITS ---
Test Date: 2025-01-15 10:43:18 Measurements Intervals Vantage Rate: 133 P: 58 DE: 138 QRS: 58 QRSD: 73 T: -7 QT: 332 QTc: 494 Interpretive Statements SINUS TACHYCARDIA MINIMAL Q WAVES- LATERAL LEADS BORDERLINE ST-T WAVE ABNORMALITY- ANTEROLAT/INF LEADS BASELINE ARTIFACT- I, II, AVR, V5 ABNORMAL ECG Compared to ECG 08/09/2024 04:07:52 HEART RATE HAS INCREASED Electronically Signed On 01-15-2025 11:06:27 CDT by Daniel Ngo D.O.
[2025-01-15 10:48] VITALS: BP 133/86; BP 138/105; PULSE 133; PULSE 145
[2025-01-15 10:49] VITALS: BP 131/90; PULSE 148
[2025-01-15 11:00] LABS: Basophils Absolute Auto 0.1 K/mm3 (0.0-0.1); Basophils Percent Auto 0.3 % (0.2-1.2); Eosinophils Absolute Auto 0.1 K/mm3 (0-0.3); Eosinophils Percent Auto 0.4 % (0-4.4); Hematocrit 37.4 % (37.0-47.0); Hemoglobin 12.4 g/dL (12.0-15.0); Immature Granulocyte Absolute 0.09 K/mm3 (0.00-0.031); Immature Granulocyte Percent A 0.6 % (0-0.5); Lymphocytes Absolute Auto 2.74 K/mm3 (0.9-3.2); Lymphocytes Percent Auto 18.8 % (18.3-44.2); Mean Corpuscular HGB Conc 33.2 g/dl (32-36); Mean Corpuscular Hemoglobin 29.2 pg (26-34); Mean Platelet Volume 8.7 fl (7.4-10.4); Monocytes Absolute Auto 0.7 K/mm3 (0.1-0.6); Monocytes Percent Auto 4.8 % (2.6-8.5); Neutrophils Absolute Auto 10.9 K/mm3 (1.3-6.7); Neutrophils Percent Auto 75.1 % (45.5-73.1); Platelet Count Result 403 k/mm3 (150-375); Red Blood Count 4.25 M/mm3 (4.2-5.4); Red Cell Distribution Width 13.1 % (11.5-14.5); White Blood Count 14.6 K/mm3 (4.5-10.0)
[2025-01-15 11:10] LABS: Alanine Aminotransferase 18 U/L (6-35); Albumin Level 4.5 g/dL (3.5-5.1); Alkaline Phosphatase 65 U/L (38-126); Anion Gap 12 mmol/L (4-12); Aspartate Amino Transferase 18 U/L (14-36); Bilirubin,Total 0.2 mg/dL (0.2-1.3); Blood Urea Nitrogen 9 mg/dL (7-17); Calcium 9.2 mg/dL (8.4-10.2); Carbon Dioxide 26 mmol/L (22-30); Chloride 100 mmol/L (98-107); Estimated CRCL calculation 89 ml/min; Estimated Glomerular Filt Rate > 60; Glucose 97 mg/dL (65-110); Lipase 75 U/L (23-300); Potassium 3.2 mmol/L (3.4-5.0); Sodium 138 mmol/L (137-145)
--- OUTSIDE RECORDS SUMMARY | 2025-01-15 11:22 | XMS_ITS | Referral Summary ---
Author Organization [facility] [address] Address [address] [place] [address] Care Team Providers Care Clerical Administrator Name Role Phone Paulo Gonsalez MD Primary Care Provider Nikky Calixto MD Unavailable Encounters Date Type Department Care Team Description 01/12/2025 Results Follow-Up [facility] Obstetrics and Gynecology [facility] 13th [place] [address] [place] [address] Nikky Calixto MD 01/11/2025 12:10 PM CDT - 01/11/2025 11:59 PM CDT Hospital Encounter [facility] [address] [place] [address] Bronchitis; Asymptomatic microscopic hematuria Discharge Disposition: Discharge to home or self care 01/11/2025 12:45 PM CDT Ancillary Procedure [facility] Imaging at [address] [phone] 01/11/2025 12:15 PM CDT Lab [facility] Outpatient Lab at [address] [phone] Bronchitis (Primary Dx) 01/11/2025 11:30 AM CDT Office Visit [facility] Primary Care at [address] [phone] Paulo Gonsalez MD Bronchitis (Primary Dx); Asymptomatic microscopic hematuria 01/01/2025 Orders Only [facility] Obstetrics and Gynecology [address] [facility] 7th Floor [address] [place] [address] Nikky Calixto MD 01/01/2025 2:46 PM CDT - 01/01/2025 11:59 PM CDT Hospital Encounter [facility] 1 Lab [address] [place] [address] Cervical cancer screening Discharge Disposition: Discharge to home or self care 01/01/2025 8:00 AM CDT Therapy [facility] Physical Therapy [address] [place] [address] Floor [address] [place] [phone] Claudia Ibarra DPT Pelvic floor dysfunction (Primary Dx) 01/01/2025 1:45 PM CDT Office Visit [facility] Obstetrics and Gynecology [address] [place] [address] [address] [address] Nikky Calixto MD Well woman exam with routine gynecological exam (Primary Dx); Cervical cancer screening; Surveillance for control, oral contraceptives; Cysts of both ovaries; Dyspareunia due to medical condition in female 12/20/2024 Results Follow-Up [facility] Convenient Care at [address] [phone] Sabrina Mukherjee NP 12/18/2024 2:42 PM CDT - 12/18/2024 11:59 PM CDT Hospital Encounter [address] [address] Acute sore throat; Fever, unspecified fever cause Discharge Disposition: Discharge to home or self care 12/18/2024 12:00 PM CDT Office Visit [facility] Convenient Care at [address] [phone] Sabrina Mukherjee NP Acute sore throat (Primary Dx); Fever, unspecified fever cause 12/12/2024 11:00 AM CDT Therapy [facility] Physical Therapy [address] [place] [address] Floor [address] [place] [phone] Claudia Ibarra DPT Pelvic floor dysfunction 11/15/2024 9:00 AM PATIENT SERVICE ASSOCIATE - 11/15/2024 11:59 PM PATIENT SERVICE ASSOCIATE Hospital Encounter [address] [address] Chronic nausea; Adrenal gland dysfunction Discharge Disposition: Discharge to home or self care 11/15/2024 9:00 AM PATIENT SERVICE ASSOCIATE Lab [facility] Outpatient Lab at [address] [phone] 11/10/2024 Telephone [facility] Obstetrics and Gynecology [address] [place] [phone] Alexandra Robbins Scheduling Appointments 11/08/2024 8:26 AM PATIENT SERVICE ASSOCIATE - 11/08/2024 11:59 PM PATIENT SERVICE ASSOCIATE Hospital Encounter [address] [address] Chronic nausea; Adrenal gland dysfunction Discharge Disposition: Discharge to home or self care 11/08/2024 8:30 AM PATIENT SERVICE ASSOCIATE Lab [facility] Outpatient Lab at [address] [phone] Hospital discharge follow-up (Primary Dx) 11/03/2024 Orders Only [facility] Primary Care at [address] [phone] Paulo Gonsalez MD 11/02/2024 Patient Message [facility] Primary Care at [address] [phone] Paulo Gonsalez MD Questions 11/02/2024 Telephone [facility] Primary Care at [address] [phone] Paulo Gonsalez MD Requesting labs from Last 3 Months Allergies Active Allergy Reactions Criticality Noted Date Comments Metoclopramide Dystonia,Other (See comments) High Prochlorperazine Dystonia,Other (See comments) High 08/22/2024 Medications albuterol HFA (ProAir HFA) 90 mcg/actuation inhalerIndication s:Mild intermittent asthma without complication Inhale 2 puffs every 4 (four) hours as needed for wheezing or shortness of breath 8.5 g 2 07/06/20 24 Active promethazine (PHENERGAN) 12.5 mg tablet Take 1 tablet (12.5 mg total) by mouth every 8 (eight) hours as needed for nausea or vomiting 45 tablet 08/15/20 24 Active busPIRone (BUSPAR) 5 mg tabletIndications :Generalized Anxiety Disorder Take 1 tablet (5 mg total) by mouth 2 (two) times a day 180 tablet 1 08/16/20 24 Active FLUoxetine (PROzac) 40 mg capsuleIndication s:Recurrent major depressive disorder, in partial remission TAKE 1 CAPSULE(40 MG) BY MOUTH DAILY 90 capsule 3 10/02/[address] (PROTONIX) 40 mg EC tablet Take 1 tablet (40 mg total) by mouth 2 (two) times a day 180 tablet 10/30/19 25 Active prucalopride (MOTEGRITY) 2 mg tablet Take 1 tablet (2 mg total) by mouth daily Active ondansetron ODT (ZOFRAN-ODT) 4 mg disintegrating tabletIndications :Colitis Take 1 tablet (4 mg total) by mouth every 8 (eight) hours as needed for nausea or vomiting 90 tablet 1 11/10/19 25 Active pyridoxine (VITAMIN B6) 25 mg tablet Take 1 tablet (25 mg total) by mouth daily 11/02/19 25 Active drospirenone-ethi nyl estradioL (Mya, 28,) 3-0.03 mg per tabletIndications :Abnormal Uterine Bleeding Take 1 tablet by mouth daily Take continuously (skip placebo pills) 84 tablet 3 01/02/20 25 026 Active Promethegan 25 mg suppository 10/05/19 25 Active drospirenone-ethi nyl estradioL (Mya, 28,) 3-0.03 mg per tabletIndications :Abnormal Uterine Bleeding Take 1 tablet by mouth daily Take continuously (skip placebo pills) 84 tablet 3 06/07/20 24 025 Discontinu ed(Reorder ) amoxicillin-clavu lanate (AUGMENTIN) 875-125 mg per tabletIndications :Acute sore throat,Fever, unspecified fever cause Take 1 tablet by mouth 2 (two) times a day for 7 days 14 tablet 12/19/19 25 025 Active Problems Problem Noted Date Diagnosed Date Severe protein-calorie malnutrition 09/28/2024 Hospital discharge follow-up 08/22/2024 Assessment & Plan (08/29/2024 10:22 AM PATIENT SERVICE ASSOCIATE): I have reviewed the hospital record, medications, and relevant testing from Patricia Regalado's recent admission. Complications and discharge plan have been noted, reviewed. Post-discharge testing has been ordered. Gastroparesis 08/22/2024 Assessment & Plan (09/14/2024 11:16 AM PATIENT SERVICE ASSOCIATE): New diagnosis of idiopathic gastroparesis that may be postinfectious given her clinical presentation. We will order a CT enterography as the next step, mainly to ensure no obvious small bowel mass/abnormality contributing to presentation. Difficult situation, as she has an allergy to Reglan and prochlorperazine - with history of dystonia with use. She has an upcoming visit at [facility] - defer possibility/consideration of domperidone to [place]. She was educated on dietary modification, hydration, and due to her persistent symptoms, pharmacologic therapy with antiemetics (ie zofran prn). Recommend: -Gastroparesis diet. She has seen nutrition near home and has a visit scheduled locally. -Educated to avoid foods that are fatty, acidic, spicy, and roughage-based as they will increase overall symptoms -Educated to consume small, frequent meals four to five times a day that are low in fat and contain only soluble fiber -If unable to tolerate solid food, can homogenize meals -Avoid carbonated beverages -Avoid alcohol -Labs pending -Other options moving forward were discussed including venting g-tube, gastric pacemaker, etc. Given complexity, she will likely need to establish with a [facility] moving forward - she reports having an appointment already. -Recommend MiraLax once to twice daily to optimize bowel habits. Nausea and vomiting 07/10/2024 Annual visit for general leo lt medical examination with abnormal findings 06/27/2024 Abnormal glucose measurement 05/29/2024 Assessment & Plan (05/29/2024 1:14 PM CDT): Patient has some nonspecific symptoms post meals True hypoglycemia has not been demonstrate Sent a prescription for glucometer and testing supplies advised patient to check her blood sugars whenever she has symptoms. Advised to notify if she is going below 60 Recent TSH WNL A1c WNL Check cortisol levels Also check random glucose and insulin levels Acute abdominal pain 03/24/2024 Right ovarian cyst 03/24/2024 Chronic nausea 06/01/2023 Assessment & Plan (05/29/2024 1:12 PM CDT): Check cortisol levels Assessment & Plan (06/01/2023 1:30 PM CDT): Persistent nausea and vomiting. Recent endoscopy revealed LA grade a reflux esophagitis. I suspect this may be due to medication side effect possibly the control pills. She is also having other issues such as irregular periods and he is in the process of seeing a law office receptionist. Advised to consult with a law office receptionist to possibly changing the medication. I reviewed her other medications but they do not seem to be significantly associated with side effects of nausea and vomiting. Continue p.r.n. Zofran. Irritable bowel syndrome with diarrhea Assessment & Plan (06/01/2023 1:28 PM CDT): Doing significantly better since she has being on Viberzi 75 mg twice daily. Has 1-2 formed bowel movements daily. Encouraged to continue same medication. Assessment & Plan (12/02/2022 9:46 PM PATIENT SERVICE ASSOCIATE): 4-5 loose bowel movements daily. Did not respond to dicyclomine and fiber. Currently takes BuSpar and fluoxetine. Recent colonoscopy with random biopsies results were reviewed. Duodenum, terminal ileum and random colon mucosal biopsies were benign, without evidence of colitis, She was advised to discontinue dicyclomine. Viberzi 75 mg twice daily is prescribed. She was counseled about the natural history of IBS. Diarrhea 09/22/2022 Assessment & Plan (09/23/2022 8:44 AM PATIENT SERVICE ASSOCIATE): Worsening. May represent IBD versus IBS. She has a family history of Crohn's disease. Check CRP. Colonoscopy with terminal ileum evaluation is recommended and scheduled. The patient was informed about the risks, benefits and alternatives to colonoscopy. The risks including but not limited to perforation, bleeding, infection and anesthetic complications with discussed with the patient and the patient verbalized full understanding. Persistent vomiting in adult patient 07/31/2022 Assessment & Plan (09/23/2022 8:45 AM PATIENT SERVICE ASSOCIATE): Worsening nausea and vomiting. Associated with epigastric discomfort. As taking omeprazole and Zofran without relief. May be gastroesophageal reflux disease. Functional abdominal pain syndrome. EGD is recommended and scheduled. Assessment & Plan (09/13/2022 2:21 PM PATIENT SERVICE ASSOCIATE): Continue fiber supplement; urged more natural sources of fiber Aim for 20-25 grams per day Continue PRN zofran Stay hydrated Continue probiotic Discussed peppermint oil supplement as well Will give dicyclomine PRN for cramping Assessment & Plan (07/31/2022 6:18 PM CDT): Still considering IBS, but cyclic vomiting syndrome, abdominal migraine will be considered as well Due to location of abdominal tenderness, will check for pancreatitis Urinalysis ordered for Wednesday to check status after course of Bactrim DS Continue PRN zofran Establishing care with new doctor, encounter for 06/30/2022 Assessment & Plan (07/04/2022 11:58 AM CDT): A(n) initial health maintenance visit with me has been performed today. Patricia Regalado is not up to date on screening tests. She is in need of Cervical cancer screening- will get referral to gyne. She is not up to date on needed preventative vaccinations; She is in need of Tdap/Td, Influenza, Pneumonia (Prevnar-13 or Pneumovax-23) and HPV. Will get records from outside hospital and pediatric shot records Encounter for well woman marco a guerrero with routine gynecological exam 01/15/2022 Assessment & Plan (01/15/2022 11:02 PM CDT): Tolerated 1st woman's is it without any difficulty. Note small speculum was used, no problems noted with the labial majora are are minora. Note vaginal vault was clear, circ at the cervix was easily found midline, no abnormality noted Cervix was noted to be round, os was closed, no abnormal drainage noted at this time. No pain with mobility with the cervix. Posterior vault in the vaginal area will also check and found to be negative. Breast exam showed both breasts were symmetric and contour. Note with outpatient the abdomen uterus found to be small midline laying in the proper position, ovaries palpated noting no enlargement or pain with palpation. Urethra was clear no abnormalities patient did very well with the exam. All questions and concerns were reviewed with patient and answered. Mild intermittent asthma without complication Assessment & Plan (01/15/2022 11:07 PM CDT): Continue with albuterol inhaler as needed. Continues to watch for triggers for asthma and avoiding them. Note states her asthma has gotten better as she ages. No acute problems noted at this time. Surveillance for control, oral contracepti ves 12/21/2021 Assessment & Plan (01/15/2022 10:58 PM CDT): Continue with to Junel, control . Continue to monitor sister menstrual cycle, watching for problem, headaches, breakthrough bleeding, abnormal bleeding. Clotting, cramping. And anything else abnormal. Continue to practice safe sex Also to continue monthly breast exam. Breast exam was discussed and reviewed with patient before leaving the office. Assessment & Plan (12/21/2021 11:02 PM CDT): Continue with Junel control. Talked abut medication importance of routine taking of medication. Also talked about practicing safe sex and things to remember with using antibiotics, missing pills, etc. Aso talked about getting Gardasil vaccine , which was discussed. Generalized anxiety disorder 12/21/2021 Assessment & Plan (12/21/2021 11:06 PM CDT): Condition is stable. Continue with Buspar and Prozac as ordered. States is doing well, voices no complaints.. Gastroesophageal reflux disease without esophagi tis 12/21/2021 Assessment & Plan (12/02/2022 11:04 AM PATIENT SERVICE ASSOCIATE): Intermittently symptomatic. Advised to continue omeprazole. Counseled about diet and lifestyle modification. Assessment & Plan (01/15/2022 10:54 PM CDT): GERD at this time is controlled. Continue with medication as ordered. Prilosec 20 mg 1 daily. Continue to watch food a give her a problem. Keep diary of foods and events. Assessment & Plan (12/21/2021 11:12 PM CDT): Note GERD is controlled at this time. Continues to use Prilosec 20mg daily. Continues to watch diet, since using med has had no issues. Lab today. Coagulation test abnormality 02/09/2012 Overview (01/15/2023): Discovered after his mother was diagnosed with that that she was suspected to have a CVA which was not confirmed by testing. Immunizations Immunization Administration Dates Next Due DTaP 10/08/2000, 0,1999,06/25 HPV, Quadrivalent 08/27/2010,04/24/2010,02/21/20 10 Hep B, Adolescent or Pediatric 05/13/2000,1999,1999 HiB 05/13/2000, 0,1999,06/25 IPV 05/13/2000,1999,1999 Influenza, Quadrivalent, Spl it, Preservative Free, Intramuscular 08/13/2023,08/26/2022 Influenza, Trivalent, Preser vative Free, Intramuscular 07/20/2024 Influenza, Unspecified 07/29/2022(Deferr ed: Patient Refused),08/18/2020(Deferred: Patient Refused) MMR 05/12/2004,09/02/2000 Meningococcal B, unspecified 02/24/2012 Meningococcal MCV4P (Menactra) 03/23/2016 PPD TEST 09/04/2024 Pneumococcal Conjugate 7-Valent 01/20/2001,11/11 Polio, Unspecified 05/12/2004 Tdap 03/21/2024,02/24/2012 Varicella 04/20/2024, 4,02/20/2010,10/08 Social History Tobacco Use Types Packs/Day Years Used Date Smoking Tobacco: Never Smokeless Tobacco: Never Tobacco Cessation:Counseling Given: Not Answered AUDIT-C Answer Date Recorded Q1: How often do you have a drink containing alc ohol? Monthly or less 01/01/2025 Q2: How many drinks containi ng alcohol do you have on a typical day when you are drinking? 1 or 2 01/01/2025 Q3: How often do you have si x or more drinks on one occasion? Never 01/01/2025 PHQ-2 Answer Date Recorded PHQ-2 Total Score (If total score is 3 or more points, staff should administer the PHQ-9) 2 06/27/2024 PHQ-9 Answer Date Recorded PHQ-9 Total Score 6 06/27/2024 Personal Safety Answer Date Recorded Have you ever been in or are you currently in a harmful physical or emotional relationship or is someone making you feel afraid or unsafe? Denies 07/18/2024 Comments No Sex and Gender Information Value Date Recorded Sex Assigned at Not on file Legal Sex Female 1:56 PM CDT Gender Identity Female 03/31/2023 10:09 AM CDT Sexual Orientation Not on file Last Filed Vital Signs Vital Sign Reading Time Taken Comments Blood Pressure 110/70 01/11/2025 11:43 AM CDT Pulse 110 01/11/2025 11:43 AM CDT Temperature 36.1 C (96.9 F) 01/11/2025 11:43 AM CDT Respiratory Rate 18 01/11/2025 11:43 AM CDT Oxygen Saturation 98% 01/11/2025 11:43 AM CDT Inhaled Oxygen Concentration - - Weight 50.3 kg (111 lb) 01/11/2025 11:43 AM CDT Height 154.9 cm (5' 1 ) 01/11/2025 11:43 AM CDT Body Mass Index 20.97 01/11/2025 11:43 AM CDT Plan of Treatment Not on file Procedures Procedure Name Priority Date/Time Associated Diagnosis Comments XR CHEST PA LATERAL 2 VIEWS Routine 01/11/2025 12:16 PM CDT Bronchitis EGFR Routine 01/11/2025 12:10 PM CDT Bronchitis DIFFERENTIAL AUTO Routine 01/11/2025 12: 10 PM CDT Bronchitis COMPREHENSIVE METABOLIC PANEL Routine 01/11/2025 12:10 PM CDT Bronchitis CBC WITH AUTO DIFFERENTIAL Routine 01/11/2025 12:10 PM CDT Bronchitis URINALYSIS AND REFLEX TO MICROSCOPIC AND CULTURE Routine 01/11/2025 12:10 PM CDT Asymptomatic microscopic hematuria PAP, REFLEXED FROM HIGH RISK HPV AND GENOTYPING Routine 01/01/2025 2:33 PM CDT THINPREP PROCESSING (MOLECULAR COMPONENT) Routine 01/01/2025 2:33 PM CDT Cervical cancer screening THROAT CULTURE Routine 12/18/2024 2:42 PM CDT Acute sore throat Fever, unspecified fever cause POCT RAPID STREP Routine 12/18/2024 12:2 1 PM CDT Acute sore throat Fever, unspecified fever cause VOLUME AND PERIOD, URINE, 24 HOUR Routine 11/15/2024 9:00 AM PATIENT SERVICE ASSOCIATE Chronic nausea Adrenal gland dysfunction CORTISOL, URINE, FREE Routine 11/15/2024 9:00 AM PATIENT SERVICE ASSOCIATE Chronic nausea Adrenal gland dysfunction CORTISOL, URINE, 24 HOUR Routine 11/15/2024 9:00 AM PATIENT SERVICE ASSOCIATE Chronic nausea Adrenal gland dysfunction DEXAMETHASONE Routine 11/08/2024 8:25 AM PATIENT SERVICE ASSOCIATE Chronic nausea Adrenal gland dysfunction from Last 3 Months Results * XR Chest Pa Lateral 2 Views (01/11/2025 12:16 PM CDT) Anatomical Region Laterality Modality Body, Chest N/A Digital Radiogra phy 01/11/2025 8:26 PM CDT Narrative 01/11/2025 8:26 PM CDT EXAM DESCRIPTION: XR CHEST PA LATERAL 2 VIEWS REASON FOR STUDY: Pt complains of cough for a week and a half. History of asthma. No surgery to heart, lungs, or chest. TECHNIQUE: 2 radiographic view(s) of the chest. COMPARISON: None FINDINGS: LUNGS: No focal opacity, pleural effusion, or pneumothorax. HEART/MEDIASTINUM: Cardiac silhouette normal in size. Mediastinal and hilar contours appear normal. LINES/TUBES: None. BONES: No acute osseous abnormality. Thoracolumbar scoliosis. Surgical clips right upper quadrant suggest prior cholecystectomy. IMPRESSION: No acute cardiopulmonary abnormality. THIS IS AN ELECTRONICALLY VERIFIED FINAL REPORT 01/11/2025 8:26 PM - Electronically signed by Vijay Tran M.D. KT T: Report ID: [id number] Reading Location: [place] [address] Procedure Note Vijay Tran MD - 01/11/2025 EXAM DESCRIPTION: XR CHEST PA LATERAL 2 VIEWS REASON FOR STUDY: Pt complains of cough for a week and a half. History of asthma. No surgeryto heart, lungs, or chest. TECHNIQUE: 2 radiographic view(s) of the chest. COMPARISON: None FINDINGS: LUNGS: No focal opacity, pleural effusion, or pneumothorax. HEART/MEDIASTINUM: Cardiac silhouette normal in size. Mediastinal andhilar contours appear normal. LINES/TUBES: None. BONES: No acute osseous abnormality. Thoracolumbar scoliosis. Surgical clips right upper quadrant suggest prior cholecystectomy. IMPRESSION: No acute cardiopulmonary abnormality. THIS IS AN ELECTRONICALLY VERIFIED FINAL REPORT 01/11/2025 8:26 PM - Electronically signed by Vijay Tran M.D. KT T: Report ID: [id number] Reading Location: [place] [address] us Paulo Gonsalez MD IMG XR PROCEDURES Final Res ult * eGFR (01/11/2025 12:10 PM CDT) eGFR >90 >=60 mL/min/1. 73 m2 Comment: Interpretive Data Reference Interval Normal >/= 90 mL/min/1.73m2 Mildly decreased* 60 - 89 mL/min/1.73m2 Mildly to moderately decreased 45 - 59 mL/min/1.73m2 Moderately to severely decreased 30 - 44 mL/min/1.73m2 Severely decreased 15 - 29 mL/min/1.73m2 Kidney Failure < 15 mL/min/1.73m2 *Relative to young adult level Estimated glomerular filtration rate is determined by the 2020 CKD-EPI equation recommended by the National Kidney Foundation (A Unifying Approach to GFR Estimation: Recommendations of the NKF-ASK Task Force on Reassessing the Inclusion of Race in Diagnosing Kidney Disease, JASN 2020). The CKD-EPI equation should not be used for patients with unstable renal function and has not been validated in children and those over 70. Current interpretive data was last reviewed 2021. Blood 01/11/2025 12:1 0 PM CDT 01/12/2025 12:06 PM CDT us Paulo Gonsalez MD LAB BLOOD ORDERABLES Final Result Performing Organization Address City/State/[facility] Co co Phone Number [facility] [phone] Department [place] [address] * Differential, auto (01/11/2025 12:10 PM CDT) Neutrophil abs 5.05 1.50 - 6.50 K/cumm Imm gran abs 0.04 0.00 - 0.10 K/cumm [facility] Lymphocyte abs 2.88 0.80 - 3.30 K/cumm [facility] Monocyte abs 0.50 0.20 - 0.80 K/cumm [facility] Eosinophil abs 0.04 0.00 - 0.50 K/cumm [facility] Basophil abs 0.02 0.00 - 0.10 K/cumm [facility] Neutrophil pct 59.1 % [facility] Comment: Interpretive Data Percent cell count reference ranges are not reported, since discordance with absolute values may lead to misinterpretation of CBC data. Current Interpretive Data was last revised on 2018. Imm gran pct 0.5 % JOANN Comment: Interpretive Data Percent cell count reference ranges are not reported, since discordance with absolute values may lead to misinterpretation of CBC data. Current Interpretive Data was last revised on 2018. Lymphocyte pct 33.8 % CERNER Comment: Interpretive Data Percent cell count reference ranges are not reported, since discordance with absolute values may lead to misinterpretation of CBC data. Current Interpretive Data was last revised on 2018. Monocyte pct 5.9 % CERNER CH Comment: Interpretive Data Percent cell count reference ranges are not reported, since discordance with absolute values may lead to misinterpretation of CBC data. Current Interpretive Data was last revised on 2018. Eosinophil pct 0.5 % CERNER Comment: Interpretive Data Percent cell count reference ranges are not reported, since discordance with absolute values may lead to misinterpretation of CBC data. Current Interpretive Data was last revised on 2018. Basophil pct 0.2 % CERNER Comment: Interpretive Data Percent cell count reference ranges are not reported, since discordance with absolute values may lead to misinterpretation of CBC data. Current Interpretive Data was last revised on 2018. Blood 01/11/2025 12:1 0 PM CDT 01/12/2025 11:46 AM CDT us Paulo Gonsalez MD LAB BLOOD ORDERABLES Final Result [facility] [id number] [place] [address] * (ABNORMAL) Urinalysis reflex to microscopic and culture Urine (01/11/2025 12:10 PM CDT) Color, ur Yellow Yellow Clarity, ur Turbid(A) Clear [facility] Specific gravity, ur 1.021 1.003 - 1.030 CERNER pH, urine 7.0 [facility] Comment: Interpretive Data U rine pH is affected by diet, medications, systemic acid-base disturbances, and renal tubular function. pH may affect urinary stone formation. For example, urine pH below 6.0 may help reduce the tendency for calcium phosphate stones and pH greater than 6.0 may reduce the tendency for uric acid stone formation. Source: [facility] Current Interpretive Data was last revised on 2017 Protein, ur ql Negative Negative CERNER Glucose, ur ql Negative Negative [facility] CH Ketones, ur Negative Negative [facility] CH Bilirubin, ur Negative Negative [facility] CH Blood, ur Negative Negative [facility] CH Urobilinogen, ur <2.0 <2.0 mg/dL [facility] CH Nitrite, ur Negative Negative [facility] CH Leukocyte esterase, ur Negative Negative [facility] CH UA reflex comment Reflex conditions for microscopic UA and culture not met. CERNER Urine 01/11/2025 12:1 0 PM CDT 01/12/2025 11:46 AM CDT Paulo Gonsalez MD LAB MICROBIOLOGY - GENERAL ORDERABLES Final Result Performing Organization Address City/[facility] Co de Phone Number JOANN [address] [place] [address] * (ABNORMAL) CBC with auto differential (01/11/2025 12:10 PM CDT) WBC 8.53 3.80 - 9.90 K/cumm Hgb 11.9 11.9 - 15.5 g/dL CERNER Hct 38.6 35.6 - 45.5 % CERNER Plt 381 150 - 400 K/cumm CERNER MPV 10.1 9.1 - 12.3 fL CERNER RBC 4.08 3.90 - 5.20 M/cumm CERNER MCV 94.6 81.3 - 96.4 fL CERNER MCH 29.2 27.1 - 33.3 pg CERNER MCHC 30.8(L) 32.3 - 35.7 g/dL CERNER CH RDW CV 13.2 11.1 - 14.9 % CERNER CH RDW SD 45.6 35.7 - 48.1 fL CERNER NRBC abs 0.00 0.00 - 0.01 K/cumm [facility] Blood 01/11/2025 12:1 0 PM CDT 01/12/2025 11:46 AM CDT Paulo Gonsalez MD LAB BLOOD ORDERABLES Final Result Performing Organization Address City/[facility] Co de Phone Number JOANN LOZANO [address] [address] * Comprehensive metabolic panel (01/11/2025 12:10 PM CDT) Sodium 138 135 - 145 mmol/L Potassium, pl 4.2 3.3 - 4.9 mmol/L [facility] CH Chloride 101 97 - 110 mmol/L [facility] CH CO2 25 22 - 32 mmol/L [facility] CH Anion gap 12 2 - 15 mmol/L [facility] CH BUN 10 6 - 25 mg/dL [facility] CH Creatinine 0.60 0.60 - 1.10 mg/dL [facility] CH Glucose 76 70 - 199 mg/dL [facility] CH Comment: Interpretive Data Fasting glucose >/= 126 mg/dl is diagnostic for diabetes. Fasting is defined as no caloric intake for at least 8 hours. Fasting glucose between 100 mg/dl to 125 mg/dl is diagnostic of prediabetes. In a patient with classic symptoms of hyperglycemia or hyperglycemic crisis, a random glucose >/= 200 mg/dl is diagnostic for diabetes. In the absence of unequivocal hyperglycemia, results should be confirmed by repeat testing. The classification and Diagnosis of Diabetes Diabetes Care 2021; 46: S19-S40. Current interpretive data was last revised 2022. Calcium 9.7 8.5 - 10.3 mg/dL C[facility] CH Bilirubin, total 0.2 0.1 - 1.2 mg/dL [facility] CH Protein, pl 7.6 6.5 - 8.5 g/dL [facility] CH Albumin 4.2 3.5 - 5.0 g/dL [facility] CH Alk phos 51 40 - 130 Units/L [facility] CH ALT 19 7 - 45 Units/L [facility] CH AST 29 10 - 45 Units/L [facility] CH Blood 01/11/2025 12:1 0 PM CDT 01/12/2025 11:46 AM CDT us Paulo Gonsalez MD LAB BLOOD ORDERABLES Final Result JOANN LOZANO [address] Department [place] [address] * Pap, Reflexed from High Risk HPV and Genotyping (01/01/2025 2:33 PM CDT) Pap test 01/01/2025 2:33 PM CDT 01/02/2025 4:05 AM CDT Narrative 01/11/2025 6:39 AM CDT EPIC results best viewed via link to PDF [facility] [place] [address] Note to Patients: This report may contain a detailed description of human tissue sent by a health care provider to the laboratory for pathologic evaluation. The content of this report is essential for diagnosis and may provide important critical findings. This information may be unfamiliar to patients to review without a medical professional present. It is advised that the patient review this report in the presence of a health care provider who can answer questions and explain the details. CYTOPATHOLOGY REPORT FINAL Patient Name: PATRICIA REGALADO Gender: F : 2000 (Age: 24) Address: [address] [place] [id number] [facility] #: [id number] Service: DEFAULT Location: Patient Type: [facility] SPECIMEN Taken: 01/01/2025 Received: 01/02/2025 Accessioned: 01/02/2025 Reported: 01/11/2025 Physician(s): Nikky Calixto M.D. FINAL INTERPRETATION SOURCE OF SPECIMEN High Risk HPV and Genotyping with reflex to PAP: STATEMENT OF ADEQUACY - Satisfactory for evaluation - Endocervical cells/transformation zone sample present GENERAL CATEGORIZATION: - Negative for squamous intraepithelial lesion or malignancy 01/11/2025 06:39 KENNEDI Hernandez(ASCP) Report Electronically Reviewed and Signed Out By KENNEDI Hernandez(ASCP) 01/11/2025 06:39:34 Cervicovaginal Cytology (Pap Test) Disclaimer: The Pap test is a screening test used to detect cervical cancer and its precursors; it is not a diagnostic procedure. False negative and false positive results do occur. Pap test results should be interpreted in the context of pertinent clinical information and biopsy results as indicated. CMS Clinical Laboratory Improvement Amendments (CLIA) mandate that cytologic and histologic results be correlated for laboratory quality assurance specialist & improvement standards. FOR ALL HIGH-GRADE CASES we request submission of follow-up histological material and/or reports that have not been previously provided so that we may fulfill said required standards. Gross Description A. High Risk HPV and Genotyping with reflex to PAP: Cervical/vaginal - Screening ThinPrep Clinical Diagnosis and History Last Menstrual Period: none Contraceptive History: Control Pill The patient is a 24 year old female with routine. Report Images and scanned documents, if included only viewable in PDF version The performance characteristics of some immunohistochemical stains, in-situ hybridization and fluorescence in-situ hybridization tests and immunophenotyping by flow cytometry cited in this report (if any) were determined by the Surgical Pathology Department at [facility] as part of an ongoing manufacturing quality inspector program and in compliance with federally mandated regulations drawn from the Clinical Laboratory Improvement Act of 1988 (CLIA '88). Some of these tests rely on the use of analyte specific reagents and are subject to specific labeling requirements by the US Food and Drug Administration. Such diagnostic tests may only be performed in a facility that is certified by the Department of Health and Human Services as a high complexity laboratory under CLIA '88. The FDA has determined that such clearance or approval is not necessary. This test is used for clinical purposes. It should not be regarded as investigational or for research. Nevertheless, federal rules concerning the medical use of analyte specific reagents require that the following disclaimer be attached to the report: This test was developed and its performance characteristics determined by the Surgical Pathology Department of [facility]. It has not been cleared or approved by the U. S. Food and Drug Administration. us Nikky Calixto MD LAB CYTOLOGY ORDERABLES F inal Result * ThinPrep processing (Molecular component) (01/01/2025 2:33 PM CDT) ThinPrep processing (Molecular component) Specimen received for processing. [facility] Comment:Testing performed by : [facility], [address] [facility], [place]., [address] Endocervical 01/01/2025 2:33 PM CDT 01/02/2025 9:01 AM CDT Nikky Calixto MD LAB BODY FLUIDS AND STOOL S ORDERABLES Final Result JOANN [address] [facility] [place] [address] [facility] * Throat culture Throat (12/18/2024 2:42 PM CDT) Report Final Report: No growth of pathogens. Comment:Testing performed by : [facility], [address] [place]., [address] Throat 12/18/2024 2:42 PM CDT 12/19/2024 5:59 AM CDT Narrative [facility] - 12/20/2024 7:26 AM CDT Testing performed by [facility] ([phone]). Sabrina Mukherjee NP LAB MICROBIOLOGY - [facility] Final Result JOANN [address] Department [place] [address] * POCT rapid strep A (12/18/2024 12:21 PM CDT) Rapid Strep A, POC Negative Negative Swab 12/18/2024 12:2 1 PM CDT Sabrina Mukherjee NP POINT OF CARE TEST ORDERABLES F inal Result * Volume and period, urine, 24 hour (11/15/2024 9:00 AM PATIENT SERVICE ASSOCIATE) Volume, ur 700 mL Period, Urine Collection 1,440 min JOANN Urine 11/15/2024 9:00 AM PATIENT SERVICE ASSOCIATE 11/15/2024 3:12 PM PATIENT SERVICE ASSOCIATE Narrative JOANN - 11/15/2024 3:25 PM PATIENT SERVICE ASSOCIATE Send Results CC: Josias Deleon M.D. Division of Gastroenterology in [facility] [address] [facility] [address] (P) [phone] (F) [phone] Paulo Gonsalez MD LAB URINE ORDERABLES Final Result Performing Organization Address [facility] de Phone Number JOANN LOZANO [address] [place] [address] * Cortisol free urine 24 hour (11/15/2024 9:00 AM PATIENT SERVICE ASSOCIATE) [facility] Cortisol, free, 24 hr, ur 15 3.5 - 45 mcg/24H [facility] ref Lab Comment: Interpretive Data Testing performed by: [facility], [place] [address]. Urine 11/15/2024 9:00 AM PATIENT SERVICE ASSOCIATE 11/15/2024 3:12 PM PATIENT SERVICE ASSOCIATE Narrative [facility] - 11/22/2024 5:07 PM PATIENT SERVICE ASSOCIATE Send Results CC: Josias Deleon M.D. Division of Gastroenterology in [facility] [address] [facility] [address] (P) [phone] (F) [phone] Paulo Gonsalez MD LAB URINE ORDERABLES Final Result Performing Organization Address [facility] de Phone Number JOANN LOZANO [address] [facility] [place] [address] [place] ref Lab * Dexamethasone (11/08/2024 8:25 AM PATIENT SERVICE ASSOCIATE) [facility] Dexamethasone 168 ng/dL [facility] ref Lab Comment: REFERENCE VALUE Baseline: <30 ng/dL 8:00 AM, Following 1 mg Dexamethasone, previous evening: >100 ng/dL 8:00 AM, Following 8 mg Dexamethasone, (4 x 2 mg doses) previous day: >800 ng/dL ADDITIONAL INFORMATION This test was developed and its performance characteristics determined by [facility] in a manner consistent with CLIA requirements. This test has not been cleared or approved by the U.S. Food and Drug Administration. Test Performed by: [facility] Laboratories - [facility] [address] [place] [address] Hose Finisher: Karon Baez Ph.D.; CLIA# [id number] Blood 11/08/2024 8:25 AM PATIENT SERVICE ASSOCIATE 11/08/2024 8:01 PM PATIENT SERVICE ASSOCIATE Melba DAVID - 11/16/2024 3:25 PM PATIENT SERVICE ASSOCIATE Send Results CC: Josias Deleon M.D. Division of Gastroenterology in [facility] [address] [facility] [address] (P) [phone] (F) [phone] Draw between 7 and 9 am Paulo Gonsalez MD LAB BLOOD ORDERABLES Final Result Performing Organization Address City/State/[facility] Co co Phone Number JOANN [address] [place] [address] [facility] from Last 3 Months Insurance [employer] Address: [facility] [id number] [phone] [employer] Address: [facility] [address] [phone] Advance Directives For more information, please contact: [phone] * Full Code (Latest Code Status on File) Date Activated Date Inactivated Comments 03/24/2024 6:21 PM 03/26/2024 5:36 PM Care Teams Clerical Administrator Relationship Specialty Start Date End Date Paulo Gonsalez MD [address] [place] [address] PCP - General Family Medicine 04/09/22 Nikky Calixto MD [address] [address] Consulting Physician Obstetrics and Gynecology 08/22/24
--- OUTSIDE RECORDS SUMMARY | 2025-01-15 11:22 | XMS_ITS | Clinical Summary ---
Author Organization [facility] [address] Address [address] [place] [address] Care Team Providers Care Detonator Maker Name Role Phone Paulo Gonsalez MD Primary Care Provider Nikky Calixto MD Unavailable [phone] Allergies Active Allergy Reactions Criticality Noted Date [...] 08/22/2024 Assessment & Plan (08/29/2024 10:22 AM SWITCH TENDER): I have reviewed the hospital record, medications, and relevant testing from Patricia Regalado's recent admission. Complications and discharge plan have been noted, reviewed. Post-discharge testing has been ordered. Gastroparesis 08/22/2024 Assessment & Plan (09/14/2024 11:16 AM SWITCH TENDER): New diagnosis of idiopathic gastroparesis that may be postinfectious given her clinical presentation. We will order a CT enterography as the next step, mainly to ensure no obvious small bowel mass/abnormality contributing to presentation. Difficult situation, as she has an allergy to Reglan and prochlorperazine - with history of dystonia with use. She has an upcoming visit at [facility] - defer possibility/consideration of domperidone to [place]. She was educated on dietary modification, hydration, [...] establish with a [facility] moving forward - she reports having [...] is in the process of seeing a telegraphic service dispatcher. Advised to consult with a telegraphic service dispatcher to possibly changing the medication. I reviewed her other medications but they do not seem to be significantly associated with side effects of nausea and vomiting. Continue p.r.n. Zofran. Irritable bowel syndrome with diarrhea 3 Assessment & Plan (06/01/2023 1:28 PM CDT): Doing significantly better since she has being on Viberzi 75 mg twice daily. Has 1-2 formed bowel movements daily. Encouraged to continue same medication. Assessment & Plan (12/02/2022 9:46 PM SWITCH TENDER): 4-5 loose bowel movements daily. Did not [...] 09/22/2022 Assessment & Plan (09/23/2022 8:44 AM SWITCH TENDER): Worsening. May represent IBD versus IBS. She [...] 07/31/2022 Assessment & Plan (09/23/2022 8:45 AM SWITCH TENDER): Worsening nausea and vomiting. Associated with epigastric discomfort. As taking omeprazole and Zofran without relief. May be gastroesophageal reflux disease. Functional abdominal pain syndrome. EGD is recommended and scheduled. Assessment & Plan (09/13/2022 2:21 PM SWITCH TENDER): Continue fiber supplement; urged more natural sources [...] (01/15/2022 10:58 PM CDT): Continue with to Melissa, control . Continue to monitor sister menstrual [...] 12/21/2021 Assessment & Plan (12/02/2022 11:04 AM SWITCH TENDER): Intermittently symptomatic. Advised to continue omeprazole. Counseled [...] CVA which was not confirmed by testing. Encounters Date Type Department Care Team Description 01/12/2025 Results Follow-Up [facility] 13th [place] [address] [place] [phone] Nikky Calixto MD 01/11/2025 12:45 PM CDT Ancillary Procedure [facility] Imaging at [address] [phone] 01/11/2025 12:15 PM CDT Lab [facility] Outpatient Lab at [address] [address] Bronchitis (Primary Dx) 01/11/2025 12:10 PM CDT - 01/11/2025 11:59 PM CDT Hospital Encounter [address] [address] Bronchitis; Asymptomatic microscopic hematuria Discharge Disposition: Discharge to home or self care 01/11/2025 11:30 AM CDT Office Visit [facility] Primary Care at [address] [address] Paulo Gonsalez MD Bronchitis (Primary Dx); Asymptomatic microscopic hematuria 01/01/2025 2:46 PM CDT - 01/01/2025 11:59 PM CDT Hospital Encounter [facility] Office Building [address] [place] [address] Cervical cancer screening Discharge Disposition: Discharge to home or self care 01/01/2025 1:45 PM CDT Office Visit [facility] [address] [place] [address] [address] [place] [phone] Nikky Calixto MD Well woman exam with routine gynecological exam (Primary Dx); Cervical cancer screening; Surveillance for control, oral contraceptives; Cysts of both ovaries; Dyspareunia due to medical condition in female 01/01/2025 8:00 AM CDT Therapy [facility] [address] [facility] 1st Floor [address] [place] [phone] Claudia Ibarra DPT Pelvic floor dysfunction (Primary Dx) 01/01/2025 Orders Only [facility] [address] [facility] 7th Floor [address] [place] [address] Nikky Calixto MD 12/20/2024 Results Follow-Up [facility] Convenient Care at [address] [address] Sabrina Mukherjee NP 12/18/2024 2:42 PM CDT - 12/18/2024 11:59 PM CDT Hospital Encounter [address] [address] Acute sore throat; Fever, unspecified fever cause Discharge Disposition: Discharge to home or self care 12/18/2024 12:00 PM CDT Office Visit [facility] Care at [address] [phone] Sabrina Mukherjee NP Acute sore throat (Primary Dx); Fever, unspecified fever cause 12/12/2024 11:00 AM CDT Therapy [facility] [address] [facility] 1st Floor [address] [place] [phone] Claudia Ibarra DPT Pelvic floor dysfunction 11/15/2024 9:00 AM SWITCH TENDER - 11/15/2024 11:59 PM SWITCH TENDER Hospital Encounter [address] [address] Chronic nausea; Adrenal gland dysfunction Discharge Disposition: Discharge to home or self care 11/15/2024 9:00 AM SWITCH TENDER Lab [facility] Outpatient Lab at [address] [address] 11/10/2024 Telephone [facility] [place] [address] Alexandra Robbins Scheduling Appointments 11/08/2024 8:30 AM SWITCH TENDER Lab [facility] Outpatient Lab at [address] [phone] Hospital discharge follow-up (Primary Dx) 11/08/2024 8:26 AM SWITCH TENDER - 11/08/2024 11:59 PM SWITCH TENDER Hospital Encounter [place] [id number] [place] [address] Chronic nausea; Adrenal gland dysfunction Discharge Disposition: Discharge to home or self care 11/03/2024 Orders Only [facility] Primary Care at [address] [phone] Paulo Gonsalez MD 11/02/[address] [facility] Primary Care at [address] [address] Paulo Gonsalez MD Questions 11/02/[address] [facility] Primary Care at [address] [address] Paulo Gonsalez MD Requesting labs from Last 3 Months Immunizations Immunization Administration Dates Next Due DTaP [...] Unspecified 05/12/2004 Tdap 03/21/2024,02/24/2012 Varicella 04/20/2024, 4,02/20/2010,10/08 Surgical History Surgery Date Site/Laterality Comments MENISCUS SURGERY 10/04/2015 - 10/03/2016 Right medial meniscus COLONOSCOPY 11/10/2022 1st screening CHOLECYSTECTOMY OVARIAN CYST DRAINAGE Medical History Medical History Date Comments Anxiety Asthma GERD (gastroesophageal reflux disease) Depression PONV (postoperative nausea and vomiting) Motion sickness Clotting disorder genes Personal history of other sp ecified conditions dystonic reaction after anes thesia such as muscle spasms after ovarian cyst drainage procedure Diarrhea Gastroparesis 08/2024 Family History Medical History Relation Name Comments No Known Problems Brother No Known Problems Father No Known Problems Mother Crohn's disease Neg Hx Inflammatory bowel disease Neg Hx Relation Name Status Comments Brother Alive Father Alive Mother Alive Social History Tobacco Use Types Packs/Day Years [...] AM CDT Sexual Orientation Not on file Obstetrics History Para Term AB IAB SAB Ectopic Multiple Livin g Live Births 0 0 0 0 0 0 0 0 0 0 0 Last Filed Vital Signs Vital Sign Reading [...] 01/11/2025 11:43 AM CDT Plan of Treatment Health Maintenance Due Date Last Done Comments Hepatitis C Screening 2000 Pneumococcal vaccine <65 (1 of 1 - PPSV23) 2005 01/20/2001, 11/11/2000 Covid-19 Vaccine ( season) 2024 10/02/2021, 11/14/2020, 10/17/2020 Depression Screening 06/27/2025 06/27/2024, 06/27/2024, 06/24/2023, Additional history exists Cervical Cancer Screening 10/03/2025 Po stponed from 1999 (Patient declined, but will receive in the future) Regular Well Visit/Exam 18-64 01/01/2026 01/01/2025, 06/27/2024 DTaP/Tdap/Td Vaccine (7 - Td or Tdap) 03/21/2034 03/21/2024, 02/24/2012, 10/08/2000, Additional history exists Hepatitis B Screening Completed 05/13/2000 , 2000, 1999 HPV Vaccines Completed 08/27/2010, 07/11/2009, 02/20/2010 Varicella Vaccines Completed 04/20/2024, 0 03/21/2024, 02/20/2010, Additional history exists Influenza Vaccine Completed 07/20/2024, , 08/26/2022, Additional history exists Procedures Procedure Name Priority Date/Time Associated Diagnosis [...] URINE, 24 HOUR Routine 11/15/2024 9:00 AM SWITCH TENDER Chronic nausea Adrenal gland dysfunction CORTISOL, URINE, FREE Routine 11/15/2024 9:00 AM SWITCH TENDER Chronic nausea Adrenal gland dysfunction CORTISOL, URINE, 24 HOUR Routine 11/15/2024 9:00 AM SWITCH TENDER Chronic nausea Adrenal gland dysfunction DEXAMETHASONE Routine 11/08/2024 8:25 AM SWITCH TENDER Chronic nausea Adrenal gland dysfunction from Last [...] Vijay Tran M.D. KT T: Report ID: [id number] Reading Location: [place] [address] Procedure Note Vijay Tran MD - 01/11/2025 [...] Vijay Tran M.D. KT T: Report ID: [id number] Reading Location: [place] [address] us Paulo Gonsalez MD IMG XR PROCEDURES [...] of Race in Diagnosing Kidney Disease, JASN 202). The CKD-EPI equation should not be used for patients with unstable renal function and has not been validated in children and those over 70. Current interpretive data was last reviewed 2021. Blood 01/11/2025 12:1 0 PM CDT 01/12/2025 12:06 PM CDT us Paulo Gonsalez MD LAB BLOOD ORDERABLES Final Result [facility] [address] [place] [address] * Differential, auto (01/11/2025 12:10 PM CDT) Neutrophil abs 5.05 1.50 - 6.50 K/cumm Imm gran abs 0.04 0.00 - 0.10 K/cumm [facility] Lymphocyte abs 2.88 0.80 - 3.30 K/cumm [facility] Monocyte abs 0.50 0.20 - 0.80 K/cumm [facility] Eosinophil abs 0.04 0.00 - 0.50 K/cumm [facility] Basophil abs 0.02 0.00 - 0.10 K/cumm [facility] Neutrophil pct 59.1 % [facility] Comment: Interpretive Data Percent cell count [...] revised on 2018. Lymphocyte pct 33.8 % [facility] Comment: Interpretive Data Percent cell count reference [...] on 2018. Eosinophil pct 0.5 % [facility] Comment: Interpretive Data Percent cell count reference ranges are not reported, since discordance with absolute values may lead to misinterpretation of CBC data. Current Interpretive Data was last revised on 2018. Basophil pct 0.2 % [facility] Comment: Interpretive Data Percent cell count reference ranges are not reported, since discordance with absolute values may lead to misinterpretation of CBC data. Current Interpretive Data was last revised on 2018. Blood 01/11/2025 12:1 0 PM CDT 01/12/2025 11:46 AM CDT Paulo Gonsalez MD LAB BLOOD ORDERABLES Final Result [facility] [address] [place] [address] * (ABNORMAL) Urinalysis reflex to microscopic and culture Urine (01/11/2025 12:10 PM CDT) Color, ur Yellow Yellow Clarity, ur Turbid(A) Clear [facility] Specific gravity, ur 1.021 1.003 - 1.030 [facility] pH, urine 7.0 [facility] Comment: Interpretive Data U rine pH is affected by diet, medications, systemic acid-base disturbances, and renal tubular function. pH may affect urinary stone formation. For example, urine pH below 6.0 may help reduce the tendency for calcium phosphate stones and pH greater than 6.0 may reduce the tendency for uric acid stone formation. Source: [facility] [employer] Current Interpretive Data was last revised on 2017 Protein, ur ql Negative Negative [facility] Glucose, ur ql Negative Negative [facility] Ketones, ur Negative Negative [facility] Bilirubin, ur Negative Negative [facility] Blood, ur Negative Negative [facility] Urobilinogen, ur <2.0 <2.0 mg/dL [facility] Nitrite, ur Negative Negative [facility] Leukocyte esterase, ur Negative Negative [facility] UA reflex comment Reflex conditions for microscopic UA and culture not met. [facility] Urine 01/11/2025 12:1 0 PM CDT 01/12/2025 11:46 AM CDT Paulo Gonsalez MD LAB MICROBIOLOGY - GENERAL ORDERABLES Final Result Performing Organization Address [facility] Co de Phone Number JOANN LOZANO [address] Department The [address] [place] [address] * (ABNORMAL) CBC with auto differential (01/11/2025 12:10 PM CDT) Pathologist [facility] WBC 8.53 3.80 - 9.90 K/cumm Hgb 11.9 11.9 - 15.5 g/dL [facility] Hct 38.6 35.6 - 45.5 % [facility] Plt 381 150 - 400 K/cumm [facility] MPV 10.1 9.1 - 12.3 fL [facility] RBC 4.08 3.90 - 5.20 M/cumm [facility] MCV 94.6 81.3 - 96.4 fL [facility] MCH 29.2 27.1 - 33.3 pg [facility] MCHC 30.8(L) 32.3 - 35.7 g/dL [facility] RDW CV 13.2 11.1 - 14.9 % [facility] RDW SD 45.6 35.7 - 48.1 fL [facility] NRBC abs 0.00 0.00 - 0.01 K/cumm [facility] Blood 01/11/2025 12:1 0 PM CDT 01/12/2025 11:46 AM CDT Paulo Gonsalez MD LAB BLOOD ORDERABLES Final Result Performing Organization Address [facility] Co de Phone Number DONNACHRISTINA LOZANO [address] Department of [employer] [place] [address] * Comprehensive metabolic panel (01/11/2025 12:10 PM [...] LAB BLOOD ORDERABLES Final Result JOANN LOZANO [address] Department [place] [address] * Pap, Reflexed from High Risk HPV and Genotyping (01/01/2025 2:33 PM CDT) Pap test 01/01/2025 2:33 PM CDT 01/02/2025 4:05 AM CDT Narrative 01/11/2025 6:39 AM CDT EPIC results best viewed via link to PDF [facility] [place] [address] Note to Patients: This report may contain [...] Gender: F : 2000 (Age: 24) Address: [address] [place] [address] Hospital #: [id number] Service: DEFAULT Location: Patient Type: [facility] SPECIMEN Taken: 01/01/2025 Received: 01/02/2025 Accessioned: 01/02/2025 Reported: 01/11/2025 Physician(s): Nikky Calixto M.D. FINAL INTERPRETATION SOURCE OF SPECIMEN High Risk HPV and Genotyping with reflex to PAP: STATEMENT OF ADEQUACY - Satisfactory for evaluation - Endocervical cells/transformation zone sample present GENERAL CATEGORIZATION: - Negative for squamous intraepithelial lesion or malignancy /01/11/2025 06:39 KENNEDI Hernandez(ASCP) Report Electronically Reviewed and [...] clinical information and biopsy results as indicated. [facility] Clinical Laboratory Improvement Amendments (CLIA) mandate that cytologic and histologic results be correlated for laboratory dairy quality assurance officer & improvement standards. FOR ALL HIGH-GRADE CASES [...] determined by the Surgical Pathology Department at [facility] as part of an ongoing quality tester program and in compliance with federally mandated [...] determined by the Surgical Pathology Department of [facility]. It has not been cleared or approved by the U. S. Food and Drug Administration. Nikky Calixto MD LAB CYTOLOGY ORDERABLES F inal Result * ThinPrep processing (Molecular component) (01/01/2025 2:33 PM CDT) ThinPrep processing (Molecular component) Specimen received for processing. [facility] Comment:Testing performed by : [facility], [address] [facility] [place]., [address] Endocervical 01/01/2025 2:33 PM CDT 01/02/2025 9:01 AM CDT Nikky Calixto MD LAB BODY FLUIDS AND STOOL S ORDERABLES Final Result [facility] [address] [facility] Department [place] [address] [facility] * Throat culture Throat (12/18/2024 2:42 PM CDT) Report Final Report: No growth of pathogens. Comment:Testing performed by : [facility], [address] [place]., [address] Throat 12/18/2024 2:42 PM CDT 12/19/2024 5:59 AM CDT Narrative [facility] - 12/20/2024 7:26 AM CDT Testing performed by [facility] Microbiology Laboratory ([phone]). us Sabrina Mukherjee NP LAB MICROBIOLOGY - [facility] Final Result JOANN [address] [facility] Department [place] [address] * POCT rapid strep A (12/18/2024 12:21 PM CDT) Rapid Strep A, POC Negative Negative Swab 12/18/2024 12:2 1 PM CDT us Sabrina Mukherjee NP POINT OF CARE TEST ORDERABLES F inal Result * Volume and period, urine, 24 hour (11/15/2024 9:00 AM SWITCH TENDER) Volume, ur 700 mL Period, Urine Collection 1,440 min JOANN Urine 11/15/2024 9:00 AM SWITCH TENDER 11/15/2024 3:12 PM SWITCH TENDER Narrative JOANN - 11/15/2024 3:25 PM SWITCH TENDER Send Results CC: Josias Deleon M.D. Division of Gastroenterology in [facility] [address] [facility] [address] (P) [phone] (F) [phone] Paulo Gonsalez MD LAB URINE ORDERABLES Final Result Performing Organization Address [facility] Co de Phone Number DONNACHRISTINA LOZANO [address] The [address] [place] [address] * Cortisol free urine 24 hour (11/15/2024 9:00 AM SWITCH TENDER) Cortisol, free, 24 hr, ur 15 3.5 - 45 mcg/24H Javier ref Lab Comment: Interpretive Data Testing performed by: [facility], [place] [address]. Urine 11/15/2024 9:00 AM SWITCH TENDER 11/15/2024 3:12 PM SWITCH TENDER Narrative JOANN LOZANO - 11/22/2024 5:07 PM SWITCH TENDER Send Results CC: Josias Deleon M.D. Division of Gastroenterology in [facility] [address] [facility] [address] (P) [phone] (F) [phone] Paulo Gonsalez MD LAB URINE ORDERABLES Final Result Performing Organization Address [facility] Co de Phone Number JOANN BLAKE [address] [place] [address] [facility] * Dexamethasone (11/08/2024 8:25 AM SWITCH TENDER) Dexamethasone 168 ng/dL Javier ref Lab Comment: REFERENCE VALUE Baseline: <30 ng/dL 8:00 AM, Following 1 mg Dexamethasone, previous evening: >100 ng/dL 8:00 AM, Following 8 mg Dexamethasone, (4 x 2 mg doses) previous day: >800 ng/dL ADDITIONAL INFORMATION This test was developed and its performance characteristics determined by [facility] in a manner consistent with CLIA requirements. This test has not been cleared or approved by the U.S. Food and Drug Administration. Test Performed by: [facility] [address] [place] [address] Ehs Engineer: Karon Baez Ph.D.; CLIA# [id number] Blood 11/08/2024 8:25 AM SWITCH TENDER 11/08/2024 8:01 PM SWITCH TENDER Melba DAVID CH - 11/16/2024 3:25 PM SWITCH TENDER Send Results CC: Josias Deleon M.D. Division of Gastroenterology in [facility] [address] [facility] [address] (P) [phone] (F) [phone] Draw between 7 and 9 am Paulo Gonsalez MD LAB BLOOD ORDERABLES Final Result JOANN [address] Department [place] [address] [facility] from Last 3 Months Insurance [employer] Address: [facility] [address] [address] [employer] Address: [facility] [address] [place] [address] Advance Directives For more information, please contact: [phone] * Full Code (Latest Code Status on File) Date Activated Date Inactivated Comments 03/24/2024 6:21 PM 03/26/2024 5:36 PM Care Teams Detonator Maker Relationship Specialty Start Date End Date Paulo Gonsalez MD [address] [place] [address] PCP - General Family Medicine 04/09/22 Nikky Calixto MD [address] [address] Consulting Physician Obstetrics and Gynecology 08/22/24
--- OUTSIDE RECORDS SUMMARY | 2025-01-15 11:22 | XMS_ITS | Encounter Summary ---
Author Organization [facility] Healthcare Address [address] [place] [address] Care Team Providers Care Showroom Consultant Name Role Phone Paulo Gonsalez MD Primary Care Provider [phone] Nikky Calixto MD Unavailable [phone] Encounter Details Date Type Department Care Team (Late st Contact Info) Description 12/20/2024 Results Follow-Up [facility] Convenient Care at [address] [address] Sabrina Mukherjee NP [address] [facility] [address] [place] [address] Social History Tobacco Use Types Packs/Day Years Used Date Smoking Tobacco: Never Smokeless Tobacco: Never AUDIT-C Answer Date Recorded Q1: How often do you have a drink containing alcohol? Monthly or less 07/18/2024 Q2: How many drinks containi ng alcohol do you have on a typical day when you are drinking? Patient does not drink Q3: How often do you have si x or more drinks on one occasion? Never 07/18/2024 PHQ-2 Answer Date Recorded PHQ-2 Total Score [...] AM CDT Sexual Orientation Not on file documented as of this encounter Plan of Treatment Not on file documented as of this encounter Visit Diagnoses Not on filedocumented in this encounter Care Teams Showroom Consultant Relationship Specialty Start Date End Date Paulo Gonsalez MD [address] [place] [address] PCP - General Family Medicine 04/09/22 Nikky Calixto MD [address] [address] Consulting Physician Obstetrics and Gynecology 08/22/24 documented as of this encounter
--- OUTSIDE RECORDS SUMMARY | 2025-01-15 11:22 | XMS_ITS | Encounter Summary ---
Author Organization [facility] Address [address] [place] [address] Phone Care Team Providers Care Senior Quantity Surveyor Name Role Phone Paulo Gonsalez MD Primary Care Provider Nikky Calixto MD Unavailable [phone] Encounter Details Date Type Department Care Team (Late st Contact Info) Description 01/12/2025 Results Follow-Up [facility] Obstetrics and Gynecology [address] [facility] 13th [place] [address] [place] [address] Nikky Calixto MD [address] [facility] [address] [place] [address] Social History Tobacco Use Types Packs/Day Years [...] on filedocumented in this encounter Care Teams Senior Quantity Surveyor Relationship Specialty Start Date End Date Paulo Gonsalez MD [address] [place] [address] PCP - General Family Medicine 04/09/22 Nikky Calixto MD [address] [address] Consulting Physician Obstetrics and Gynecology 08/22/24 documented as of this encounter
--- OUTSIDE RECORDS SUMMARY | 2025-01-15 11:22 | XMS_ITS | Clinical Summary ---
Author Organization [facility] Address [address] [place] [id number] Care Team Providers Care Route Rider Supervisor Name Role Phone Non-Staff, Provider Primary Care Provider Unavai lable Allergies Active Allergy Reactions Criticality Noted Date Comments Prochlorperazine Dystonia 10/05/2024 Metoclopramide Dystonia 10/05/2024 Medications No known medications Encounters Date Type Department Care Team Description 12/19/2024 1:51 PM CDT - 12/19/2024 11:59 PM CDT Hospital Encounter [facility] [address] [place] [address] Lorenzo Ballesteros MD Discharge Disposition: Home or Self Care (Routine Discharge) 12/19/2024 1:50 PM CDT Hospital Encounter [facility] [id number] [place] [id number] Lorenzo Ballesteros MD Discharge Disposition: Home or Self Care (Routine Discharge) 12/19/[address] [facility] [id number] [place] [id number] Lorenzo Ballesteros MD 12/19/2024 Travel from Last 3 Months Immunizations Immunization Administration Dates Next Due MODERNA COVID-19 (12+) MRNA, LNP-S, PF, 100 MCG/ 0.5 ML DOSE 11/14/2020,10/17/2020 Social History Tobacco Use Types Packs/Day Years Used Date Smoking Tobacco: Never Smokeless Tobacco: Never Tobacco Cessation:Counseling Given: Not Answered Alcohol Use Standard Drinks/Week Comments Never 0 (1 standard drink = 0.6 oz pur e alcohol) Comments No Sex and Gender Information Value Date Recorded Sex Assigned at Not on file Legal Sex Female 6:43 PM TARE MAN Gender Identity Not on file Sexual Orientation Not on file Last Filed Vital Signs Vital Sign Reading Time Taken Comments Blood Pressure 111/76 10/05/2024 2:00 PM TARE MAN Pulse 115 10/05/2024 2:00 PM TARE MAN Temperature 37.1 C (98.7 F) 10/05/2024 9:43 AM TARE MAN Respiratory Rate 24 10/05/2024 2:00 PM TARE MAN Oxygen Saturation 98% 10/05/2024 2:00 PM TARE MAN Inhaled Oxygen Concentration - - Weight 53.3 kg (117 lb 8.1 oz) 10/05/2024 9:42 A M TARE MAN Height 154.9 cm (5' 1 ) 10/05/2024 9:43 AM TARE MAN Body Mass Index 22.2 10/05/2024 9:42 AM TARE MAN Plan of Treatment Health Maintenance Due Date Last Done Comments Cervical Cancer Screening Pap Smear (Age 21 to 29) Every 3 Years 1999 Cervical Cancer Screening 1999 Annual Physical 2002 COVID-19 Vaccine ( season) 2024 11/14/2020, 10/17/2020 DTaP, Tdap and Td Vaccines (7 - Td or Tdap) 03/21/2034 03/21/2024, 02/24/2012, 10/08/2000, Additional history exists Hepatitis B Vaccines Completed 05/13/2000, 1999, 1999 Pneumococcal Vaccine: Pediatrics (0 to 5 Years) and At-Risk Patients (6 to 49 Years) Aged Out 01/20/2001, 11/11/2000 No longer eligibl e based on patient's age to complete this topic HPV Vaccines Completed 08/27/2010, 04/04, 02/20/2010 Meningococcal Vaccine Completed 03/23/2016, 012 Hepatitis C Completed 12/19/2024, 12/19/2024 Meningococcal B Vaccine Aged Out No l onger eligible based on patient's age to complete this topic RSV Immunizations Under 20 Months Aged Out No longer eligible based on patient's age to complete this topic Procedures Procedure Name Priority Date/Time Associated Diagnosis Comments XR KNEE LT 2V Routine 12/19/2024 2:49 PM CDT Joint pain XR KNEE RT 2V Routine 12/19/2024 2:49 PM CDT Joint pain XR ANKLE LT 2V Routine 12/19/2024 2:49 PM CDT Joint pain XR ANKLE RT 2V Routine 12/19/2024 2:49 PM CDT Joint pain XR FOOT LT 2V Routine 12/19/2024 2:49 PM CDT Joint pain XR FOOT RT 2V Routine 12/19/2024 2:49 PM CDT Joint pain URINALYSIS MICRO ONLY Routine 12/19/2024 2:09 PM CDT FERRITIN Routine 12/19/2024 2:09 PM CDT Anemia, unspecified Fatigue Senile arthritis Myalgia Screening for diabetes mellitus Impaired glucose tolerance test Encounter for therapeutic drug monitoring Systemic lupus erythematosus ([facility]) Screening examination for poliomyelitis Atrophic arthritis ([facility]) Hypouricemia ENA2 (SSA & SSB) Routine 12/19/2024 2:09 PM CDT Anemia, unspecified Fatigue Senile arthritis Myalgia Screening for diabetes mellitus Impaired glucose tolerance test Encounter for therapeutic drug monitoring Systemic lupus erythematosus ([facility]) Screening examination for poliomyelitis Atrophic arthritis ([facility]) Hypouricemia SM AND SM/GRA[employer]PLICATION DEVELOPER ANTIBODIES Routine 12/19/2024 2:09 PM CDT Anemia, unspecified Fatigue Senile arthritis Myalgia Screening for diabetes mellitus Impaired glucose tolerance test Encounter for therapeutic drug monitoring Systemic lupus erythematosus ([facility]) Screening examination for poliomyelitis Atrophic arthritis ([facility]) Hypouricemia ANATOLY-1 ANTIBODY Routine 12/19/2024 2:09 PM CDT Anemia, unspecified Fatigue Senile arthritis Myalgia Screening for diabetes mellitus Impaired glucose tolerance test Encounter for therapeutic drug monitoring Systemic lupus erythematosus ([facility]CC) Screening examination for poliomyelitis Atrophic arthritis ([facility]/HCC) Hypouricemia DNA ANTIBODY, KETCHIKAN/DBL STRAN Routine 12/19/2024 2:09 PM CDT Anemia, unspecified Fatigue Senile arthritis Myalgia Screening for diabetes mellitus Impaired glucose tolerance test Encounter for therapeutic drug monitoring Systemic lupus erythematosus ([facility]/HCC) Screening examination for poliomyelitis Atrophic arthritis ([facility]/HCC) Hypouricemia CHROMATIN (NUCLEOSOMAL) AB Routine 12/19/2024 2:09 PM CDT Anemia, unspecified Fatigue Senile arthritis Myalgia Screening for diabetes mellitus Impaired glucose tolerance test Encounter for therapeutic drug monitoring Systemic lupus erythematosus ([facility]/HCC) Screening examination for poliomyelitis Atrophic arthritis ([facility]/HCC) Hypouricemia HEPATITIS C RNA W/ REFLX GENOTYPE Routine 12/19/2024 2:09 PM CDT Anemia, unspecified Fatigue Senile arthritis Myalgia Screening for diabetes mellitus Impaired glucose tolerance test Encounter for therapeutic drug monitoring Systemic lupus erythematosus ([facility]/HCC) Screening examination for poliomyelitis Atrophic arthritis ([facility]/HCC) Hypouricemia HC URINALYSIS AUTO W/O MICRO Routine 12/19/2024 2:09 PM CDT Anemia, unspecified Fatigue Senile arthritis Myalgia Screening for diabetes mellitus Impaired glucose tolerance test Encounter for therapeutic drug monitoring Systemic lupus erythematosus ([facility]/HCC) Screening examination for poliomyelitis Atrophic arthritis ([facility]/HCC) Hypouricemia CARDIOLIPIN ANTIBODIES (IGG,IGA,IGM) Routine 12/19/2024 2:09 PM CDT Anemia, unspecified Fatigue Senile arthritis Myalgia Screening for diabetes mellitus Impaired glucose tolerance test Encounter for therapeutic drug monitoring Systemic lupus erythematosus ([facility]/HCC) Screening examination for poliomyelitis Atrophic arthritis ([facility]/HCC) Hypouricemia LUPUS ANTICOAGULANT EVAL W/RFX Routine 12/19/2024 2:09 PM CDT Anemia, unspecified Fatigue Senile arthritis Myalgia Screening for diabetes mellitus Impaired glucose tolerance test Encounter for therapeutic drug monitoring Systemic lupus erythematosus ([facility]/HCC) Screening examination for poliomyelitis Atrophic arthritis ([facility]/HCC) Hypouricemia BETA 2 GLYCOPROTEIN I ANTIBODY,EA Routine 12/19/2024 2:09 PM CDT Anemia, unspecified Fatigue Senile arthritis Myalgia Screening for diabetes mellitus Impaired glucose tolerance test Encounter for therapeutic drug monitoring Systemic lupus erythematosus ([facility]/HCC) Screening examination for poliomyelitis Atrophic arthritis ([facility]/HCC) Hypouricemia COMPLEMENT, TOTAL (CH50) Routine 12/19/2024 2:09 PM CDT Anemia, unspecified Fatigue Senile arthritis Myalgia Screening for diabetes mellitus Impaired glucose tolerance test Encounter for therapeutic drug monitoring Systemic lupus erythematosus ([facility]/HCC) Screening examination for poliomyelitis Atrophic arthritis ([facility]/HCC) Hypouricemia COMPLEMENT C4 Routine 12/19/2024 2:09 PM CDT Anemia, unspecified Fatigue Senile arthritis Myalgia Screening for diabetes mellitus Impaired glucose tolerance test Encounter for therapeutic drug monitoring Systemic lupus erythematosus ([facility]/HCC) Screening examination for poliomyelitis Atrophic arthritis ([facility]/HCC) Hypouricemia COMPLEMENT C3 Routine 12/19/2024 2:09 PM CDT Anemia, unspecified Fatigue Senile arthritis Myalgia Screening for diabetes mellitus Impaired glucose tolerance test Encounter for therapeutic drug monitoring Systemic lupus erythematosus ([facility]/HCC) Screening examination for poliomyelitis Atrophic arthritis ([facility]/HCC) Hypouricemia HEPATITIS C ANTIBODY Routine 12/19/2024 2:09 PM CDT Anemia, unspecified Fatigue Senile arthritis Myalgia Screening for diabetes mellitus Impaired glucose tolerance test Encounter for therapeutic drug monitoring Systemic lupus erythematosus ([facility]/HCC) Screening examination for poliomyelitis Atrophic arthritis ([facility]/HCC) Hypouricemia HEMOGLOBIN, GLYCOSYLATED Routine 12/19/2024 2:09 PM CDT Anemia, unspecified Fatigue Senile arthritis Myalgia Screening for diabetes mellitus Impaired glucose tolerance test Encounter for therapeutic drug monitoring Systemic lupus erythematosus ([facility]/HCC) Screening examination for poliomyelitis Atrophic arthritis ([facility]) Hypouricemia SED RATE, ERYTHROCYTE (ESR) Routine 12/19/2024 2:09 PM CDT Anemia, unspecified Fatigue Senile arthritis Myalgia Screening for diabetes mellitus Impaired glucose tolerance test Encounter for therapeutic drug monitoring Systemic lupus erythematosus ([facility]) Screening examination for poliomyelitis Atrophic arthritis ([facility]) Hypouricemia URIC ACID BLOOD Routine 12/19/2024 2:09 PM CDT Anemia, unspecified Fatigue Senile arthritis Myalgia Screening for diabetes mellitus Impaired glucose tolerance test Encounter for therapeutic drug monitoring Systemic lupus erythematosus ([facility]) Screening examination for poliomyelitis Atrophic arthritis ([facility]) Hypouricemia CK (CPK) Routine 12/19/2024 2:09 PM CDT Anemia, unspecified Fatigue Senile arthritis Myalgia Screening for diabetes mellitus Impaired glucose tolerance test Encounter for therapeutic drug monitoring Systemic lupus erythematosus ([facility]) Screening examination for poliomyelitis Atrophic arthritis ([facility]) Hypouricemia CYCLIC CITRULLINATED PEPTIDE (CCP)ANTIBODY(IGG) Routine 12/19/2024 2:09 PM CDT Anemia, unspecified Fatigue Senile arthritis Myalgia Screening for diabetes mellitus Impaired glucose tolerance test Encounter for therapeutic drug monitoring Systemic lupus erythematosus ([facility]) Screening examination for poliomyelitis Atrophic arthritis ([facility]) Hypouricemia RHEUMATOID FACTOR, QUANT Routine 12/19/2024 2:09 PM CDT Anemia, unspecified Fatigue Senile arthritis Myalgia Screening for diabetes mellitus Impaired glucose tolerance test Encounter for therapeutic drug monitoring Systemic lupus erythematosus ([facility]) Screening examination for poliomyelitis Atrophic arthritis ([facility]) Hypouricemia VITAMIN B1 THIAMINE Routine 12/19/2024 2 :09 PM CDT Anemia, unspecified Fatigue Senile arthritis Myalgia Screening for diabetes mellitus Impaired glucose tolerance test Encounter for therapeutic drug monitoring Systemic lupus erythematosus ([facility]/HCC) Screening examination for poliomyelitis Atrophic arthritis ([facility]/HCC) Hypouricemia RETICULOCYTE CT, AUTO Routine 12/19/2024 2:09 PM CDT Anemia, unspecified Fatigue Senile arthritis Myalgia Screening for diabetes mellitus Impaired glucose tolerance test Encounter for therapeutic drug monitoring Systemic lupus erythematosus ([facility]/HCC) Screening examination for poliomyelitis Atrophic arthritis ([facility]/HCC) Hypouricemia IRON SAT PANEL (IRON,IBC,%SAT) Routine 12/19/2024 2:09 PM CDT Anemia, unspecified Fatigue Senile arthritis Myalgia Screening for diabetes mellitus Impaired glucose tolerance test Encounter for therapeutic drug monitoring Systemic lupus erythematosus ([facility]/HCC) Screening examination for poliomyelitis Atrophic arthritis ([facility]/HCC) Hypouricemia from Last 3 Months Results * XR ANKLE RT 2V (12/19/2024 2:49 PM CDT) Anatomical Region Laterality Modality Ankle Radiographic Vika ging 12/19/2024 4:06 PM CDT Impressions 12/19/2024 4:07 PM CDT IMPRESSION: No radiographic abnormality identified. Ordered By: LORENZO BALLESTEROS Interpreted By: Goran Sharif MD, 12/19/2024 4:06 PM Narrative 12/19/2024 4:[address] [facility] [address] [place] [address] Examination: XR ANKLE RT 2V, XR FOOT RT 2V Exam time: 12/19/2024 2:37 PM Clinical history: Pain Comparison: No prior exam Technique: AP and lateral views right ankle. AP and lateral views right foot. Findings: There is no evidence of abnormal soft tissue density about the ankle. Ankle mortise appears intact. No evidence of fracture or focal bone abnormality to distal tibia, fibula, or about the right ankle. Forefoot and hindfoot alignment is within normal limits. No evidence of fracture, subluxation, or dislocation. No evidence of abnormal periosteal reactions throughout the foot. No evidence of significant arthritic changes. No evidence of abnormal soft tissue densities. Procedure Note Goran Sharif MD - 12/19/2024 [facility] [address] [place] [address] Examination: XR ANKLE RT 2V, XR FOOT RT 2V Exam time: 12/19/2024 2:37 PM Clinical history: Pain Comparison: No prior exam Technique: AP and lateral views right ankle. AP and lateral views rightfoot. Findings: There is no evidence of abnormal soft tissue density about theankle. Ankle mortise appears intact. No evidence of fracture or focal boneabnormality to distal tibia, fibula, or about the right ankle. Forefootand hindfoot alignment is within normal limits. No evidence of fracture,subluxation, or dislocation. No evidence of abnormal periosteal reactionsthroughout the foot. No evidence of significant arthritic changes. Noevidence of abnormal soft tissue densities. IMPRESSION: No radiographic abnormality identified. Ordered By: LORENZO BALLESTEROS Interpreted By: Goran Sharif MD, 12/19/2024 4:06 PM Lroenzo Ballesteros MD [facility] Final Result * XR ANKLE LT 2V (12/19/2024 2:49 PM CDT) Anatomical Region Laterality Modality Ankle Radiographic Vika ging 12/19/2024 4:05 PM CDT Impressions 12/19/2024 4:06 PM CDT IMPRESSION: No radiographic abnormality identified. Ordered By: LORENZO BALLESTEROS Interpreted By: Goran Sharif MD, 12/19/2024 4:05 PM Narrative 12/19/2024 4:[address] [facility] [address] [place] [address] Examination: XR ANKLE LT 2V, XR FOOT LT 2V Exam time: 12/19/2024 2:37 PM Clinical history: Pain Comparison: No prior exam Technique: AP and lateral views left ankle. AP and lateral views left foot. Findings: There is no evidence of abnormal soft tissue density about the ankle. Ankle mortise appears intact. No evidence of fracture or focal bone abnormality to distal tibia, fibula, or about the left ankle. Forefoot and hindfoot alignment is within normal limits. No evidence of fracture, subluxation, or dislocation. No evidence of abnormal periosteal reactions throughout the foot. No evidence of significant arthritic changes. No evidence of abnormal soft tissue densities. Procedure Note Goran Sharif MD - 12/19/2024 [facility] [address] [place] [address] Examination: XR ANKLE LT 2V, XR FOOT LT 2V Exam time: 12/19/2024 2:37 PM Clinical history: Pain Comparison: No prior exam Technique: AP and lateral views left ankle. AP and lateral views leftfoot. Findings: There is no evidence of abnormal soft tissue density about theankle. Ankle mortise appears intact. No evidence of fracture or focal boneabnormality to distal tibia, fibula, or about the left ankle. Forefoot andhindfoot alignment is within normal limits. No evidence of fracture,subluxation, or dislocation. No evidence of abnormal periosteal reactionsthroughout the foot. No evidence of significant arthritic changes. Noevidence of abnormal soft tissue densities. IMPRESSION: No radiographic abnormality identified. Ordered By: LORENZO BALLESTEROS Interpreted By: Goran Sharif MD, 12/19/2024 4:05 PM Lorenzo Ballesteros MD [facility] Final Result * XR FOOT RT 2V (12/19/2024 2:49 PM CDT) Anatomical Region Laterality Modality Foot Radiographic Vika ging 12/19/2024 4:06 PM CDT Impressions 12/19/2024 4:07 PM CDT IMPRESSION: No radiographic abnormality identified. Ordered By: LORENZO BALLESTEROS Interpreted By: Goran Sharif MD, 12/19/2024 4:06 PM Narrative 12/19/2024 4:07 PM CDT [address] [place] [address] Examination: XR ANKLE RT 2V, XR FOOT RT 2V Exam time: 12/19/2024 2:37 PM Clinical history: Pain Comparison: No prior exam Technique: AP and lateral views right ankle. AP and lateral views right foot. Findings: There is no evidence of abnormal soft tissue density about the ankle. Ankle mortise appears intact. No evidence of fracture or focal bone abnormality to distal tibia, fibula, or about the right ankle. Forefoot and hindfoot alignment is within normal limits. No evidence of fracture, subluxation, or dislocation. No evidence of abnormal periosteal reactions throughout the foot. No evidence of significant arthritic changes. No evidence of abnormal soft tissue densities. Procedure Note Goran Sharif MD - 12/19/2024 [place] [id number] [facility] [place] [address] Examination: XR ANKLE RT 2V, XR FOOT RT 2V Exam time: 12/19/2024 2:37 PM Clinical history: Pain Comparison: No prior exam Technique: AP and lateral views right ankle. AP and lateral views rightfoot. Findings: There is no evidence of abnormal soft tissue density about theankle. Ankle mortise appears intact. No evidence of fracture or focal boneabnormality to distal tibia, fibula, or about the right ankle. Forefootand hindfoot alignment is within normal limits. No evidence of fracture,subluxation, or dislocation. No evidence of abnormal periosteal reactionsthroughout the foot. No evidence of significant arthritic changes. Noevidence of abnormal soft tissue densities. IMPRESSION: No radiographic abnormality identified. Ordered By: LORENZO BALLESTEROS Interpreted By: Goran Sharif MD, 12/19/2024 4:06 PM Lorenzo Ballesteros MD [facility]AG[facility] Final Result * XR FOOT LT 2V (12/19/2024 2:49 PM CDT) Anatomical Region Laterality Modality Foot Radiographic Vika ging 12/19/2024 4:05 PM CDT Impressions 12/19/2024 4:06 PM CDT IMPRESSION: No radiographic abnormality identified. Ordered By: LORENZO BALLESTEROS Interpreted By: Goran Sharif MD, 12/19/2024 4:05 PM Narrative 12/19/2024 4:[address] [facility] [address] [place] [address] Examination: XR ANKLE LT 2V, XR FOOT LT 2V Exam time: 12/19/2024 2:37 PM Clinical history: Pain Comparison: No prior exam Technique: AP and lateral views left ankle. AP and lateral views left foot. Findings: There is no evidence of abnormal soft tissue density about the ankle. Ankle mortise appears intact. No evidence of fracture or focal bone abnormality to distal tibia, fibula, or about the left ankle. Forefoot and hindfoot alignment is within normal limits. No evidence of fracture, subluxation, or dislocation. No evidence of abnormal periosteal reactions throughout the foot. No evidence of significant arthritic changes. No evidence of abnormal soft tissue densities. Procedure Note Goran Sharif MD - 12/19/2024 [facility] [address] [place] [address] Examination: XR ANKLE LT 2V, XR FOOT LT 2V Exam time: 12/19/2024 2:37 PM Clinical history: Pain Comparison: No prior exam Technique: AP and lateral views left ankle. AP and lateral views leftfoot. Findings: There is no evidence of abnormal soft tissue density about theankle. Ankle mortise appears intact. No evidence of fracture or focal boneabnormality to distal tibia, fibula, or about the left ankle. Forefoot andhindfoot alignment is within normal limits. No evidence of fracture,subluxation, or dislocation. No evidence of abnormal periosteal reactionsthroughout the foot. No evidence of significant arthritic changes. Noevidence of abnormal soft tissue densities. IMPRESSION: No radiographic abnormality identified. Ordered By: LORENZO BALLESTEROS Interpreted By: Goran Sharif MD, 12/19/2024 4:05 PM Lorenzo Ballesteros MD [facility] Final Result * XR KNEE RT 2V (12/19/2024 2:49 PM CDT) Anatomical Region Laterality Modality Knee Radiographic Vika ging 12/19/2024 4:03 PM CDT Impressions 12/19/2024 4:04 PM CDT IMPRESSION: No radiographic abnormality identified. Ordered By: LORENZO BALLESTEROS Interpreted By: Goran Sharif MD, 12/19/2024 4:03 PM Narrative 12/19/2024 4:04 PM [address] [place] [address] Examination: XR KNEE RT 2V Exam time: 12/19/2024 2:37 PM Clinical history: Pain Comparison: No prior exam Technique: AP and lateral views Findings: : Medial and lateral joint spaces appear within normal limits. Relationship of the patella to the distal femur is unremarkable. No radiographic evidence of joint effusion. No radiographic evidence of arthritic changes. No evidence of fracture, focal bone lesion, or abnormal periosteal reactions. Procedure Note Goran Sharif MD - 12/19/2024 [facility] [address] [place] [address] Examination: XR KNEE RT 2V Exam time: 12/19/2024 2:37 PM Clinical history: Pain Comparison: No prior exam Technique: AP and lateral views Findings: : Medial and lateral joint spaces appear within normal limits.Relationship of the patella to the distal femur is unremarkable. Noradiographic evidence of joint effusion. No radiographic evidence ofarthritic changes. No evidence of fracture, focal bone lesion, or abnormalperiosteal reactions. IMPRESSION: No radiographic abnormality identified. Ordered By: LORENZO BALLESTEROS Interpreted By: Goran Sharif MD, 12/19/2024 4:03 PM Lorenzo Ballesteros MD GENERAL IMAGING Final Result * XR KNEE LT 2V (12/19/2024 2:49 PM CDT) Anatomical Region Laterality Modality Knee Radiographic Vika ging 12/19/2024 4:04 PM CDT Impressions 12/19/2024 4:04 PM CDT IMPRESSION: No radiographic abnormality identified. Ordered By: LORENZO BALLESTEROS Interpreted By: Goran Sharif MD, 12/19/2024 4:04 PM Narrative 12/19/2024 4:04 PM CDT [address] [place] [address] Examination: XR KNEE LT 2V Exam time: 12/19/2024 2:37 PM Clinical history: Pain Comparison: No prior exam Technique: AP and lateral views left knee Findings: : Medial and lateral joint spaces appear within normal limits. Relationship of the patella to the distal femur is unremarkable. No radiographic evidence of joint effusion. No radiographic evidence of arthritic changes. No evidence of fracture, focal bone lesion, or abnormal periosteal reactions. Procedure Note Goran Sharif MD - 12/19/[address] [place] [address] Examination: XR KNEE LT 2V Exam time: 12/19/2024 2:37 PM Clinical history: Pain Comparison: No prior exam Technique: AP and lateral views left knee Findings: : Medial and lateral joint spaces appear within normal limits.Relationship of the patella to the distal femur is unremarkable. Noradiographic evidence of joint effusion. No radiographic evidence ofarthritic changes. No evidence of fracture, focal bone lesion, or abnormalperiosteal reactions. IMPRESSION: No radiographic abnormality identified. Ordered By: LORENZO BALLESTEROS Interpreted By: Goran Sharif MD, 12/19/2024 4:04 PM Lorenzo Ballesteros MD GENERAL IMAGING Final Result * SM AND SM/GRAILS WEB APPLICATION DEVELOPER ANTIBODIES (12/19/2024 2:09 PM CDT) Pathologist [facility] SM ANTIBODY <1.0 12/22/2024 7:43 PM CDT [facility] Comment: Reference Range: < 1.0 NEG AI SM/GRAILS WEB APPLICATION DEVELOPER AB S/P/B <1.0 7:43 PM CDT [employer] [facility] LY Comment: Reference Range: < 1.0 NEG AI Test Performed by [employer], [place], [address] [place] [address] Angel Bradley M.D., Ph.D., Director of Laboratories , CLIA [id number] 12/19/2024 2:09 PM CDT Lorenzo Ballesteros MD LABORATORY Final Result [employer] [address] [address], * LUPUS ANTICOAGULANT EVAL W/RFX (12/19/2024 2:09 PM CDT) Pathologist [facility] LUPUS ANTICOAGULANT REPORT 12/23/2024 5:01 AM CDT [employer] [facility] Comment: A Lupus Anticoagulant is not detected. Reference Range: Not Detected For additional information, please refer to http://education.aiHit.Yopolis/faq/XOB89g7 (This link is being provided for informational/ educational purposes only.) This interpretation is based on the following test results. PTT (LUPUS ANTICOAGULANT) 37 <=40 sec 12/23/2024 5:01 AM CDT [employer] [facility] LY Comment: Test Performed by [employer], Adea Astor, [address] [place] [address] Angel Bradley M.D., Ph.D., Director of Laboratories , CLIA [id number] DRVVT SCREEN 36 <=45 sec 12/23/2024 5:01 AM CDT [facility] 12/19/2024 2:09 PM CDT us Lorenzo Ballesteros MD LABORATORY Final Result Performing Organization Address [facility]/ZIP Co de Phone Number [employer] [phone] [place], [place] , * CHROMATIN (NUCLEOSOMAL) AB (12/19/2024 2:09 PM CDT) CHROMATIN (NUCLEOSOMAL)AB <1.0 12/22/2024 7:43 PM CDT [facility]ITAL[facility] LY Comment: Reference Range: < 1.0 NEG AI Test Performed by [employer], [employer] [facility], [address] [place] [address] Angel Bradley M.D., Ph.D., Director of Laboratories , [facility] [id number] 12/19/2024 2:09 PM CDT us Lorenzo Ballesteros MD LABORATORY Final Result Performing Organization Address [facility]/ZIP Co de Phone Number [employer] [id number] [place], [place] , [place] [phone] * HEPATITIS C RNA W/ REFLX GENOTYPE (12/19/2024 2:09 PM CDT) HEPATITIS C RNA PCR QNT <15 IU/mL 12/22/2024 4:33 PM CDT [facility] L[facility] Comment: HCV RNA Not Detected HEP C RNA PCR QNT LOG <1.18 log IU/mL 12/22/2024 4:33 PM CDT [facility] Comment: HCV RNA Not Detected Reference Range: Not Detected IU/mL Not Detected Log IU/mL For additional information please refer to http://education.aiHit.Yopolis/faq/CHC10e4 (This link is being provided for informational/ educational purposes only.) Test Performed by [employer], Adea [place]or, [address] [place], [place] Angel Bradley M.D., Ph.D., Director of Laboratories , [employer] [id number] 12/19/2024 2:09 PM CDT Lorenzo Ballesteros MD LABORATORY Final Result [facility] [address] [place], [place] , * CARDIOLIPIN ANTIBODIES (IGG,IGA,IGM) (12/19/2024 2:09 PM CDT) CARDIOLIPIN AB IGG <2.0 <20.0 GP 2024 8:50 PM CDT [employer] [facility] Comment: U/mL Value Interpretation ----- < 20.0 Antibody not detected > or = 20.0 Antibody detected CARDIOLIPIN AB IGM <2.0 <20.0 [facility] 2024 8:50 PM CDT [employer] [facility] Comment: U/mL Value Interpretation ----- < 20.0 Antibody not detected > or = 20.0 Antibody detected The antiphospholipid antibody syndrome (APS) is a clinical-pathologic correlation that includes a clinical event (e.g. arterial or venous thrombosis, morbidity) and persistent positive antiphospholipid antibodies (IgM, IgG Cardiolipin or b2GPI antibodies greater than the 99th percentile; or a lupus anticoagulant). International consensus guidelines for APS suggest waiting at least 12 weeks before retesting to confirm antibody persistence. The Systemic Lupus International Collaborating Clinics immunological classification criteria for systemic lupus erythematosus (SLE) include testing for isotype IgA, which has yet to be incorporated into APS criteria. Low level antiphospholipid antibodies may sometimes be detected in the setting of infection, drug therapy or aging. For additional information, please refer to http://education.PurpleBricks/faq/FXG285 (This link is being provided for informational/ educational purposes only.) Test Performed by [employer], [facility] [facility], [address] [place] [address] Angel Bradley M.D., Ph.D., Director of Laboratories , [place] [id number] CARDIOLIPIN AB IGA <2.0 <20.0 APL 2024 8:50 PM CDT [employer] [facility] Comment: U/mL Value Interpretation ----- < 20.0 Antibody not detected > or = 20.0 Antibody detected 12/19/2024 2:09 PM CDT us Lorenzo Ballesteros MD LABORATORY Final Result [employer] [address] [address], [place] [phone] * RHEUMATOID FACTOR, QUANT (12/19/2024 2:09 PM CDT) RHEUMATOID FACTOR <10 <15 IU/ML 12/19/2024 7:54 PM CDT [facility] 12/19/2024 2:09 PM CDT us Lorenzo Ballesteros MD LABORATORY Final Result [facility] [address] [place] [address], [place] [phone] * CYCLIC CITRULLINATED PEPTIDE (CCP)ANTIBODY(IGG) (12/19/2024 2:09 PM CDT) CITRULLINE PEPTIDE ANTIBODY <16 <20 Units 12/22/2024 4:28 AM CDT [employer] LY Comment: Negative: <20 Weak Positive: 20 - 39 Moderate Positive: 40 - 59 Strong Positive: >59 Test Performed by [employer]Tech EnvironmentalVictor HugoDarlington, [place], [address] [place], [place] Angel Bradley M.D., Ph.D., Director of Laboratories , CLIA [id number] 12/19/2024 2:09 PM CDT Lorenzo Ballesteros MD LABORATORY Final Result Performing Organization Address [facility]/ZIP Co de Phone Number [employer] [address] [place], [place] , [place] [phone] * ANATOLY-1 ANTIBODY (12/19/2024 2:09 PM CDT) ANATOLY-1 ANTIBODY <1.0 12/22/2024 7:43 PM CDT [employer] LY Comment: Reference Range: < 1.0 NEG AI Test Performed by [employer], [place], [id number] [place] [address] Angel Bradley M.D., Ph.D., Director of Laboratories , CLIA [id number] 12/19/2024 2:09 PM CDT us Lorenzo Ballesteros MD LABORATORY Final Result Performing Organization Address City/[facility]/ZIP Co de Phone Number [employer] SocialSUT[employer] [address] [place], [place] , [place] [phone] * COMPLEMENT C4 (12/19/2024 2:09 PM CDT) COMPLEMENT C4 28 15 - 57 mg/dL 12/22/2024 5:08 PM CDT [employer] LY Comment: Test Performed by [employer], [place], [address] [place], [place] Angel Bradley M.D., Ph.D., Director of Laboratories , [facility] [id number] 12/19/2024 2:09 PM CDT us Lorenzo Ballesteros MD LABORATORY Final Result [employer] [facility] [address] [place], [place] , [place] [phone] * COMPLEMENT C3 (12/19/2024 2:09 PM CDT) COMPLEMENT C3 152.0 90.0 - 180.0 MG/DL 12/20/2024 11:54 AM CDT [facility] 12/19/2024 2:09 PM CDT us Lorenzo Ballesteros MD LABORATORY Final Result Performing Organization Address [facility] Co de Phone Number [facility] [address] [address], [place] [phone] * HEMOGLOBIN, GLYCOSYLATED (12/19/2024 2:09 PM CDT) HGB A1C 4.9 <5.7 % 12/19/2024 3:06 PM CDT [facility] Comment: INCREASED RISK OF DIABETES <5.7% NON-DIABETES 5.7-6.4% INCREASED RISK FOR FUTURE DIABETES > OR = 6.5 CONSISTENT WITH DIABETES STANDARDS OF MEDICAL CARE IN DIABETES-2010 DIABETES CARE, 33(SUPP 1): S1-S61,2010 ESTIMATED AVG GLUCOSE 94 mg/dL 12/19/2024 3:06 PM CDT [facility] 12/19/2024 2:09 PM CDT us Lorenzo Ballesteros MD LABORATORY Final Result [facility] [address] [place] [address], [place] [phone] * (ABNORMAL) IRON SAT PANEL (IRON,IBC,%SAT) (12/19/2024 2:09 PM CDT) IRON 67 50 - 170 MCG/DL 12/19/2024 3:18 PM CDT [facility] IRON BINDING CAPACITY 409 250 - 450 MCG/DL 12/19/2024 3:18 PM CDT [facility] IRON SATURATION 16(L) 20 - 55 % 3:18 PM CDT [facility] 12/19/2024 2:09 PM CDT Lorenzo Ballesteros MD LABORATORY Final Result Performing Organization Address City/State/[facility] Co de Phone Number [facility] [address] [place] [address], [place] [phone] * (ABNORMAL) URINALYSIS (12/19/2024 2:09 PM CDT) COLOR (U) YELLOW 12/19/2024 3:02 PM CDT [facility] TRANSPARENCY CLEAR 12/19/2024 3:02 PM CDT [facility] SPECIFIC GRAVITY (U) 1.015 1.000 - 1.030 12/19/2024 3:02 PM CDT [facility] U PH 7.0 5.0 - 9.0 12/19/2024 3:02 PM CDT [facility] LEUKOCYTES (U) NEGATIVE NEGATIVE 12/19/2024 3:02 PM CDT [facility] NITRITES NEGATIVE NEGATIVE 12/19/2024 3:02 PM CDT [facility] PROTEIN RANDOM (U) NEGATIVE NEGATIVE 12/19/2024 3:02 PM CDT [facility] GLUCOSE (U) NEGATIVE NEGATIVE 12/19/2024 3:02 PM CDT [facility] KETONES MG/DL (U) TRACE(A) NEGATIVE 12/19/2024 3:02 PM CDT [facility] BILIRUBIN (U) NEGATIVE NEGATIVE 12/19/2024 3:02 PM CDT [facility] BLOOD (U) TRACE(A) NEGATIVE 12/19/2024 3:02 PM CDT [facility] URINE SPECIMEN OBTAINED BY CLEAN CATCH PROCEDURE / Unknown 12/19/2024 2:09 PM CDT us Lorenzo Ballesteros MD URINE ORDERABLES Final Result Performing Organization Address City/[facility]/ZIP Co de Phone Number [facility] [address] [place] [address], * ENA2 (SSA & SSB) (12/19/2024 2:09 PM CDT) SSA ANTIBODY <1.0 12/22/2024 7:43 PM CDT [employer] Comment: Reference Range: < 1.0 NEG AI SSB ANTIBODY <1.0 12/22/2024 7:43 PM CDT [employer] Comment: Reference Range: < 1.0 NEG AI Test Performed by Kelsey Albarran, [facility] [facility], [address] [place] [address] Angel Bradley M.D., Ph.D., Director of Laboratories , [facility] [id number] 12/19/2024 2:09 PM CDT us Lorenzo Ballesteros MD LABORATORY Final Result Performing Organization Address City/[facility]/ZIP Co de Phone Number [place] [id number] [place] [address], [place] [phone] * RETICULOCYTE CT, AUTO (12/19/2024 2:09 PM CDT) RETICULOCYTE COUNT 1.5 0.5 - 1.5 % 12/19/2024 2:46 PM CDT [facility] 12/19/2024 2:09 PM CDT us Lorenzo Ballesteros MD LABORATORY Final Result Performing Organization Address City/[facility]/ZIP Co de Phone Number [facility] [address] [place] [address], [place] [phone] * (ABNORMAL) SED RATE, ERYTHROCYTE (ESR) (12/19/2024 2:09 PM CDT) ESR 29(H) 0 - 20 MM/HR 12/19/2024 2:49 PM CDT [facility] 12/19/2024 2:09 PM CDT us Lorenzo Ballesteros MD LABORATORY Final Result [facility] [address] [place] [address], [place] [phone] * URINALYSIS MICRO ONLY (12/19/2024 2:09 PM CDT) WBC/HPF NONE SEEN 0 - 5 /HPF 12/19/2024 3:02 PM CDT [facility] RBC/HPF NONE SEEN 0 - 5 /HPF 12/19/2024 3:02 PM CDT [facility] EPI/HPF FEW /HPF 12/19/2024 3:02 PM CDT [facility] 12/19/2024 2:09 PM CDT us Lorenzo Ballesteros MD URINE ORDERABLES Final Result [facility] [address] [place] [address], [place] [phone] * HEPATITIS C ANTIBODY (12/19/2024 2:09 PM CDT) HEPATITIS C AB NON-REACTI VE NON-REACTI VE 12/19/2024 8:54 PM CDT [facility] 12/19/2024 2:09 PM CDT us Lorenzo Ballesteros MD LABORATORY Final Result Performing Organization Address City/[facility]/ZIP Co de Phone Number [facility] [address] [place] [address], [place] [phone] * DNA ANTIBODY, KETCHIKAN/DBL STRAN (12/19/2024 2:09 PM CDT) DNA (DS) ANTIBODY <1 <=4 IU/mL 025 7:43 PM CDT [employer] [place] Comment: Value Interpretation <or=4 IU/mL: Negative 5 - 9 IU/mL: Indeterminate >or=10 IU/mL: Positive Test Performed by [employer], [facility] [facility], [address] [place] [address] Angel Bradley M.D., Ph.D., Director of Laboratories , [facility] [id number] 12/19/2024 2:09 PM CDT us Lorenzo Ballesteros MD LABORATORY Final Result [employer] [place] [place] [address] [place], [place] , [place] [phone] * (ABNORMAL) COMPLEMENT, TOTAL (CH50) (12/19/2024 2:09 PM CDT) COMPLEMENT CH50 >60(H) 31 - 60 U/mL 12/22/2024 12:35 PM CDT [employer] Comment: Test Performed by Kelsey Albarran, [employer] Aiyana Ramirez, [address] [place] [address] Angel Bradley M.D., Ph.D., Director of Laboratories , [facility] [id number] 12/19/2024 2:09 PM CDT Lorenzo Ballesteros MD LABORATORY Final Result [employer] [place] [address] [place] [address] , * BETA 2 GLYCOPROTEIN I ANTIBODY,EA (12/19/2024 2:09 PM CDT) BETA-2 GLYCOPROTEIN I IGG <2.0 <20.0 U/mL 12/22/2024 4:51 AM CDT [employer] VALENTIN REEDER Comment: Value Interpretation ----- < 20.0 Antibody not detected > or = 20.0 Antibody detected BETA-2 GLYCOPROTEIN I IGM <2.0 <20.0 U/mL 12/22/2024 4:51 AM CDT [employer] VALENTIN REEDER Comment: Value Interpretation ----- < 20.0 Antibody not detected > or = 20.0 Antibody detected BETA-2 GLYCOPROTEIN I IGA <2.0 <20.0 U/mL 12/22/2024 4:51 AM CDT [employer] VALENTIN REEDER Comment: Value Interpretation ----- < 20.0 Antibody not detected > or = 20.0 Antibody detected The antiphospholipid antibody syndrome (APS) is a clinical-pathologic correlation that includes a clinical event (e.g. arterial or venous thrombosis, morbidity) and persistent positive antiphospholipid antibodies (IgM, IgG Cardiolipin or b2GPI antibodies greater than the 99th percentile; or a lupus anticoagulant). International consensus guidelines for APS suggest waiting at least 12 weeks before retesting to confirm antibody persistence. The Systemic Lupus International Collaborating Clinics immunological classification criteria for systemic lupus erythematosus (SLE) include testing for isotype IgA, which has yet to be incorporated into APS criteria. Low level antiphospholipid antibodies may sometimes be detected in the setting of infection, drug therapy or aging. For additional information, please refer to http://education.PurpleBricks/faq/BRK681 (This link is being provided for informational/ educational purposes only.) Test Performed by [employer] Adea Astor, [address] [place] [address] Angel Bradley M.D., Ph.D., Director of Laboratories , CLIA [id number] 12/19/2024 2:09 PM CDT Lorenzo Ballesteros MD LABORATORY Final Result [employer] [address], * VITAMIN B1 THIAMINE (12/19/2024 2:09 PM CDT) [facility] VITAMIN B1 S/P/B 16 8 - 30 nmol/L 12/29/2024 12:17 PM CDT [employer] Comment: Vitamin supplementation within 24 hours prior to blood draw may affect the accuracy of the results. This test was developed and its analytical performance characteristics have been determined by [employer] [place], [place]. It has not been cleared or approved by the U.S. Food and Drug Administration. This assay has been validated pursuant to the CLIA regulations and is used for clinical purposes. Test Performed by [employer] Adea Astor, [address] [place] [address] Angel Bradley M.D., Ph.D., Director of Laboratories , CLIA [id number] 12/19/2024 2:09 PM CDT us Lorenzo Ballesteros MD LABORATORY Final Result [employer] [address] , [place] [phone] * FERRITIN (12/19/2024 2:09 PM CDT) FERRITIN 125.0 8.0 - 388.0 NG/ML 12/19/2024 3:24 PM CDT [facility] 12/19/2024 2:09 PM CDT us Lorenzo Ballesteros MD LABORATORY Final Result Performing Organization Address City/[facility]/ZIP Co de Phone Number [facility] [address] [place] [address], [place] [phone] * CK (CPK) (12/19/2024 2:09 PM CDT) CPK 35 26 - 192 U/L 12/19/2024 3:24 PM CDT [facility] 12/19/2024 2:09 PM CDT us Lorenzo Ballesteros MD LABORATORY Final Result Performing Organization Address City/[facility]/ZIP Co de Phone Number [facility] [address] [place] [address], [place] [phone] * URIC ACID BLOOD (12/19/2024 2:09 PM CDT) URIC ACID 3.6 2.6 - 6.0 MG/DL 12/19/2024 3:24 PM CDT [facility] 12/19/2024 2:09 PM CDT Lorenzo Ballesteros MD LABORATORY Final Result [facility] [address] [place] [address], [place] [phone] from Last 3 Months [facility] Route Rider Supervisor Relationship Specialty Start Date End Date Non-Staff, Provider PCP - General UNKNOWN PHYSICIAN SPECIALTY 10/05/24
[2025-01-15 12:00] VITALS: BP 126/88; PULSE 127; RESP 20; O2SAT 96
[2025-01-15 12:03] LABS: BEDSIDEPREGUCG Negative (Negative)
--- OUTSIDE RECORDS SUMMARY | 2025-01-15 12:55 | XMS_ITS | Referral Summary ---
Author Organization [facility] [place] [address] Address [address] [place] [address] Care Team Providers Care [employer] Player Name Role Phone Paulo Gonsalez MD Primary Care Provider Nikky Calixto MD Unavailable Encounters Date Type Department Care Team Description 01/15/2025 Results Follow-Up [facility] Primary Care at [address] [phone] Paulo Gonsalez MD 01/12/2025 Results Follow-Up [facility] [address] [place] [address] 13th [place] [address] Nikky Calixto MD 01/11/2025 12:10 PM CDT - 01/11/2025 11:59 PM CDT Hospital Encounter [address] [address] Bronchitis; Asymptomatic microscopic hematuria Discharge Disposition: Discharge to home or self care 01/11/2025 12:45 PM CDT Ancillary Procedure [facility] Imaging at [address] [phone] 01/11/2025 12:15 PM CDT Lab [facility] Outpatient Lab at [address] [phone] Bronchitis (Primary Dx) 01/11/2025 11:30 AM CDT Office Visit [facility] Primary Care at [address] [address] Paulo Gonsalez MD Bronchitis (Primary Dx); Asymptomatic microscopic hematuria 01/01/2025 Orders Only [facility] [address] [facility] 7th Floor [address] [place] [phone] Nikky Calixto MD 01/01/2025 2:46 PM CDT - 01/01/2025 11:59 PM CDT Hospital Encounter [facility] Office Building 1 Lab [address] [place] [address] Cervical cancer screening Discharge Disposition: Discharge to home or self care 01/01/2025 8:00 AM CDT Therapy [facility] [address] [place] [address] Floor Suite [facility] [place] [address] Claudia Ibarra DPT Pelvic floor dysfunction (Primary Dx) 01/01/2025 1:45 PM CDT Office Visit [facility] [address] [facility] [address] [place] [phone] Nikky Calixto MD Well woman exam with routine gynecological exam (Primary Dx); Cervical cancer screening; Surveillance for control, oral contraceptives; Cysts of both ovaries; Dyspareunia due to medical condition in female 12/20/2024 Results Follow-Up [facility] Convenient Care at [address] [phone] Sabrina Mukherjee NP 12/18/2024 2:42 PM CDT - 12/18/2024 11:59 PM CDT Hospital Encounter [facility] [address] [place] [address] Acute sore throat; Fever, unspecified fever cause Discharge Disposition: Discharge to home or self care 12/18/2024 12:00 PM CDT Office Visit [facility] Convenient Care at [address] [phone] Sabrina Mukherjee NP Acute sore throat (Primary Dx); Fever, unspecified fever cause 12/12/2024 11:00 AM CDT Therapy [facility] [address] 1st Floor [address] [place] [phone] Clauida Ibarra DPT Pelvic floor dysfunction 11/15/2024 9:00 AM PEDIATRIC CARDIOLOGIST - 11/15/2024 11:59 PM PEDIATRIC CARDIOLOGIST Hospital Encounter [address] [address] Chronic nausea; Adrenal gland dysfunction Discharge Disposition: Discharge to home or self care 11/15/2024 9:00 AM PEDIATRIC CARDIOLOGIST Lab [facility] Outpatient Lab at [address] [address] 11/10/2024 Telephone [facility] [address] [place] [address] Alexandra Robbins Scheduling Appointments 11/08/2024 8:26 AM PEDIATRIC CARDIOLOGIST - 11/08/2024 11:59 PM PEDIATRIC CARDIOLOGIST Hospital Encounter [address] [address] Chronic nausea; Adrenal gland dysfunction Discharge Disposition: Discharge to home or self care 11/08/2024 8:30 AM PEDIATRIC CARDIOLOGIST Lab [facility] Outpatient Lab at [address] [phone] Hospital discharge follow-up (Primary Dx) 11/03/2024 Orders Only [facility] Primary Care at [address] [address] Paulo Gonsalez MD 11/02/2024 Patient Message [facility] Primary Care at [address] [phone] Paulo Gonaslez MD Questions 11/02/2024 Telephone [facility] Primary Care at [address] [phone] Paulo Gonsalez MD Requesting labs from Last [...] 08/22/2024 Assessment & Plan (08/29/2024 10:22 AM PEDIATRIC CARDIOLOGIST): I have reviewed the hospital record, medications, and relevant testing from Patricia Regalado's recent admission. Complications and discharge plan have been noted, reviewed. Post-discharge testing has been ordered. Gastroparesis 08/22/2024 Assessment & Plan (09/14/2024 11:16 AM PEDIATRIC CARDIOLOGIST): New diagnosis of idiopathic gastroparesis that may be postinfectious given her clinical presentation. We will order a CT enterography as the next step, mainly to ensure no obvious small bowel mass/abnormality contributing to presentation. Difficult situation, as she has an allergy to Reglan and prochlorperazine - with history of dystonia with use. She has an upcoming visit at [facility] - defer possibility/consideration of domperidone to [place]. She was educated on dietary modification, hydration, [...] establish with a [facility] moving forward - she reports having [...] is in the process of seeing a pastrycook's assistant. Advised to consult with a pastrycook's assistant to possibly changing the medication. I reviewed [...] medication. Assessment & Plan (12/02/2022 9:46 PM PEDIATRIC CARDIOLOGIST): 4-5 loose bowel movements daily. Did not [...] 09/22/2022 Assessment & Plan (09/23/2022 8:44 AM PEDIATRIC CARDIOLOGIST): Worsening. May represent IBD versus IBS. She [...] 07/31/2022 Assessment & Plan (09/23/2022 8:45 AM PEDIATRIC CARDIOLOGIST): Worsening nausea and vomiting. Associated with epigastric discomfort. As taking omeprazole and Zofran without relief. May be gastroesophageal reflux disease. Functional abdominal pain syndrome. EGD is recommended and scheduled. Assessment & Plan (09/13/2022 2:21 PM PEDIATRIC CARDIOLOGIST): Continue fiber supplement; urged more natural sources [...] 12/21/2021 Assessment & Plan (12/02/2022 11:04 AM PEDIATRIC CARDIOLOGIST): Intermittently symptomatic. Advised to continue omeprazole. Counseled [...] 01/20/2001,11/11 Polio, Unspecified 05/12/2004 Tdap 03/21/2024,02/24/2012 Varicella 04/20/2024,,02/20/2010,10/08 Social History Tobacco Use Types Packs/Day Years [...] URINE, 24 HOUR Routine 11/15/2024 9:00 AM PEDIATRIC CARDIOLOGIST Chronic nausea Adrenal gland dysfunction CORTISOL, URINE, FREE Routine 11/15/2024 9:00 AM PEDIATRIC CARDIOLOGIST Chronic nausea Adrenal gland dysfunction CORTISOL, URINE, 24 HOUR Routine 11/15/2024 9:00 AM PEDIATRIC CARDIOLOGIST Chronic nausea Adrenal gland dysfunction DEXAMETHASONE Routine 11/08/2024 8:25 AM PEDIATRIC CARDIOLOGIST Chronic nausea Adrenal gland dysfunction from Last [...] Vijay Tran M.D. KT T: Report ID: [id number] Reading Location: [place] [address] Procedure Note Vjiay Tran MD - 01/11/2025 EXAM DESCRIPTION: XR [...] Vijay Tran M.D. KT T: Report ID: [id number] Reading Location: [place] [address] us Paulo Gonsalez MD IMG XR PROCEDURES [...] Gonsalez MD LAB BLOOD ORDERABLES Final Result [facility] [address] Department [place] [address] * Differential, auto (01/11/2025 12:10 PM CDT) Neutrophil abs 5.05 1.50 - 6.50 K/cumm Imm gran abs 0.04 0.00 - 0.10 K/cumm [facility] Lymphocyte abs 2.88 0.80 - 3.30 K/cumm [facility] Monocyte abs 0.50 0.20 - 0.80 K/cumm [facility] Eosinophil abs 0.04 0.00 - 0.50 K/cumm [facility] Basophil abs 0.02 0.00 - 0.10 K/cumm [facility] Neutrophil pct 59.1 % [facility] Comment: Interpretive Data Percent cell count reference ranges are not reported, since discordance with absolute values may lead to misinterpretation of CBC data. Current Interpretive Data was last revised on 2018. Imm gran pct 0.5 % [facility] Comment: Interpretive Data Percent cell count reference ranges are not reported, since discordance with absolute values may lead to misinterpretation of CBC data. Current Interpretive Data was last revised on 2018. Lymphocyte pct 33.8 % [facility] Comment: Interpretive Data Percent cell count reference ranges are not reported, since discordance with absolute values may lead to misinterpretation of CBC data. Current Interpretive Data was last revised on 2018. Monocyte pct 5.9 % [facility] Comment: Interpretive Data Percent cell count reference ranges are not reported, since discordance with absolute values may lead to misinterpretation of CBC data. Current Interpretive Data was last revised on 2018. Eosinophil pct 0.5 % [facility] Comment: Interpretive Data Percent cell count reference ranges are not reported, since discordance with absolute values may lead to misinterpretation of CBC data. Current Interpretive Data was last revised on 2018. Basophil pct 0.2 % [facility] Comment: Interpretive Data Percent cell count reference ranges are not reported, since discordance with absolute values may lead to misinterpretation of CBC data. Current Interpretive Data was last revised on 2018. Blood 01/11/2025 12:1 0 PM CDT 01/12/2025 11:46 AM CDT Paulo Gonsalez MD LAB BLOOD ORDERABLES Final Result [facility] [address] Department [place] [address] * (ABNORMAL) Urinalysis reflex to microscopic and culture Urine (01/11/2025 12:10 PM CDT) Color, ur Yellow Yellow Clarity, ur Turbid(A) Clear [facility] Specific gravity, ur 1.021 1.003 - 1.030 [facility] pH, urine 7.0 [facility] Comment: Interpretive Data U rine pH is affected by diet, medications, systemic acid-base disturbances, and renal tubular function. pH may affect urinary stone formation. For example, urine pH below 6.0 may help reduce the tendency for calcium phosphate stones and pH greater than 6.0 may reduce the tendency for uric acid stone formation. Source: [facility] Current Interpretive Data was last revised on [...] AM CDT us Paulo Gonsalez MD LAB MICROBIOLOGY - GENERAL ORDERABLES Final Result [facility] [address] Department [place] [address] * (ABNORMAL) CBC with auto differential (01/11/2025 12:10 PM CDT) WBC 8.53 3.80 - 9.90 K/cumm Hgb 11.9 11.9 - 15.5 g/dL [facility] Hct 38.6 35.6 - 45.5 % [facility] [...] SD 45.6 35.7 - 48.1 fL [facility] NRBC abs 0.00 0.00 - 0.01 K/cumm [facility] Blood 01/11/2025 12:1 0 PM CDT 01/12/2025 11:46 AM CDT us Paulo Gonsalez MD LAB BLOOD ORDERABLES Final Result [facility] [address] Department [place] [address] * Comprehensive metabolic panel (01/11/2025 12:10 PM [...] classification and Diagnosis of Diabetes Diabetes Care 202; 46: S19-S40. Current interpretive data was last [...] LAB BLOOD ORDERABLES Final Result [facility] [address] Department [place] [address] * Pap, Reflexed from High Risk HPV and Genotyping (01/01/2025 2:33 PM CDT) Pap test 01/01/2025 2:33 PM CDT 01/02/2025 4:05 AM CDT Narrative 01/11/2025 6:39 AM CDT EPIC results best viewed via link to PDF [facility] [place] [address] Note to Patients: This report may contain [...] Gender: F : 2000 (Age: 24) Address: [address] [place], [place] [phone] Hospital #: [id number] Service: DEFAULT Location: Patient Type: [facility] SPECIMEN Taken: 01/01/2025 Received: 01/02/2025 Accessioned: [...] clinical information and biopsy results as indicated. [facility] Clinical Laboratory Improvement Amendments (CLIA) mandate that cytologic and histologic results be correlated for laboratory software quality assurance specialist & improvement standards. FOR [...] determined by the Surgical Pathology Department at as part of an ongoing quality internship program and in compliance with federally mandated [...] determined by the Surgical Pathology Department of . It has not been cleared or approved by the U. S. Food and Drug Administration. us Nikky Calixto MD LAB CYTOLOGY ORDERABLES F inal Result * ThinPrep processing (Molecular component) (01/01/2025 2:33 PM CDT) ThinPrep processing (Molecular component) Specimen received for processing. [facility] Comment:Testing performed by : , [address] [place]., [address] Endocervical 01/01/2025 2:33 PM CDT 01/02/2025 9:01 AM CDT Nikky Calixto MD LAB BODY FLUIDS AND STOOL S ORDERABLES Final Result [facility] [address] [facility] Department [place] [address] [facility] * Throat culture Throat (12/18/2024 2:42 PM CDT) Report Final Report: No growth of pathogens. Comment:Testing performed by : , [address] [place]., [address] Throat 12/18/2024 2:42 PM CDT 12/19/2024 5:59 AM CDT Narrative [facility] - 12/20/2024 7:26 AM CDT Testing performed by Microbiology Laboratory ([phone]). Sabrina Mukherjee NP LAB MICROBIOLOGY - GENERAL ORDE RABLES Final Result Performing Organization Address City/[facility]/ZIP Co de Phone Number [facility] [address] Department [place] [address] * POCT rapid strep A (12/18/2024 12:21 PM CDT) Rapid Strep A, POC Negative Negative Swab 12/18/2024 12:2 1 PM CDT Sabrina Mukherjee NP POINT OF CARE TEST ORDERABLES F inal Result * Volume and period, urine, 24 hour (11/15/2024 9:00 AM PEDIATRIC CARDIOLOGIST) Volume, ur 700 mL Period, Urine Collection 1,440 min [facility] Urine 11/15/2024 9:00 AM PEDIATRIC CARDIOLOGIST 11/15/2024 3:12 PM PEDIATRIC CARDIOLOGIST Narrative [facility] - 11/15/2024 3:25 PM PEDIATRIC CARDIOLOGIST Send Results CC: Josias Deleon M.D. Division of Gastroenterology in [facility] [address] [facility] [address] (P) [phone] (F) [phone] Paulo Gonsalez MD LAB URINE ORDERABLES Final Result Performing Organization Address [facility] de Phone Number DONNACHRISTINA LOZAN[facility] [address] [facility] [place] [address] * Cortisol free urine 24 hour (11/15/2024 9:00 AM PEDIATRIC CARDIOLOGIST) Cortisol, free, 24 hr, ur 15 3.5 - 45 mcg/24H [facility] ref [facility] Comment: Interpretive Data Testing performed by: [facility], [place] [address]. Urine 11/15/2024 9:00 AM PEDIATRIC CARDIOLOGIST 11/15/2024 3:12 PM PEDIATRIC CARDIOLOGIST Narrative [facility] - 11/22/2024 5:07 PM PEDIATRIC CARDIOLOGIST Send Results CC: Josias Deleon M.D. Division of Gastroenterology in [facility] [address] [facility] [address] (P) [phone] (F) [phone] Paulo Gonsalez MD LAB URINE ORDERABLES Final Result Performing Organization Address [facility] de Phone Number [facility]ANN LOZANO [address] [facility] [place] [address] [facility] ref [facility] * Dexamethasone (11/08/2024 8:25 AM PEDIATRIC CARDIOLOGIST) Dexamethasone 168 ng/dL [facility] ref [facility] Comment: REFERENCE VALUE Baseline: <30 ng/dL 8:00 AM, Following 1 mg Dexamethasone, previous evening: >100 ng/dL 8:00 AM, Following 8 mg Dexamethasone, (4 x 2 mg doses) previous day: >800 ng/dL ADDITIONAL INFORMATION This test was developed and its performance characteristics determined by [facility] in a manner consistent with CLIA requirements. This test has not been cleared or approved by the U.S. Food and Drug Administration. Test Performed by: [facility] [address] [place] [address] Hand Tier: Karon Baez Ph.D.; CLIA# [id number] Blood 11/08/2024 8:25 AM PEDIATRIC CARDIOLOGIST 11/08/2024 8:01 PM PEDIATRIC CARDIOLOGIST Melba Lombardi 11/16/2024 3:25 PM PEDIATRIC CARDIOLOGIST Send Results CC: Josias Deleon M.D. 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
--- OUTSIDE RECORDS SUMMARY | 2025-01-15 12:55 | XMS_ITS | Clinical Summary ---
Author Organization [facility] Address [address] [place] [address] Care Team Providers Care Cath Lab Radiology Technician Name Role Phone Non-Staff, Provider Primary Care Provider Unavai lable Allergies Active Allergy Reactions Criticality Noted Date Comments Prochlorperazine Dystonia 10/05/2024 Metoclopramide Dystonia 10/05/2024 Medications No known medications Encounters Date Type Department Care Team Description 12/19/2024 1:51 PM CDT - 12/19/2024 11:59 PM CDT Hospital Encounter [facility] [address] [place] [address] Lorenzo Ballesteros MD Discharge Disposition: Home or Self Care (Routine Discharge) 12/19/2024 1:50 PM CDT Hospital Encounter [facility] [id number] [place] [address] Lorenzo Ballesteros MD Discharge Disposition: Home or Self Care (Routine Discharge) 12/19/2024 Orders Only [facility] [id number] [place] [address] Lorenzo Ballesteros MD 12/19/2024 Travel from Last [...] on file Legal Sex Female 6:43 PM [employer] Gender Identity Not on file Sexual Orientation Not on file Last Filed Vital Signs Vital Sign Reading Time Taken Comments Blood Pressure 111/76 10/05/2024 2:00 PM [employer] Pulse 115 10/05/2024 2:00 PM [employer] Temperature 37.1 C (98.7 F) 10/05/2024 9:43 AM [employer] Respiratory Rate 24 10/05/2024 2:00 PM [employer] Oxygen Saturation 98% 10/05/2024 2:00 PM [employer] Inhaled Oxygen Concentration - - Weight 53.3 kg (117 lb 8.1 oz) 10/05/2024 9:42 A M [employer] Height 154.9 cm (5' 1 ) 10/05/2024 9:43 AM [employer] Body Mass Index 22.2 10/05/2024 9:42 AM [employer] Plan of Treatment Health Maintenance Due Date [...] for therapeutic drug monitoring Systemic lupus erythematosus ([facility]) Screening examination for poliomyelitis Atrophic arthritis ([facility]) Hypouricemia ENA2 (SSA & SSB) Routine 12/19/2024 2:09 PM CDT Anemia, unspecified Fatigue Senile arthritis Myalgia Screening for diabetes mellitus Impaired glucose tolerance test Encounter for therapeutic drug monitoring Systemic lupus erythematosus ([facility]) Screening examination for poliomyelitis Atrophic arthritis ([facility]) Hypouricemia SM AND SM/NURSE MIDWIFE/CLINICAL INSTRUCTOR ANTIBODIES Routine 12/19/2024 2:09 PM CDT Anemia, unspecified Fatigue Senile arthritis Myalgia Screening for diabetes mellitus Impaired glucose tolerance test Encounter for therapeutic drug monitoring Systemic lupus erythematosus ([facility]) Screening examination for poliomyelitis Atrophic arthritis ([facility]) Hypouricemia ANATOLY-1 ANTIBODY Routine 12/19/2024 2:09 PM CDT Anemia, unspecified Fatigue Senile arthritis Myalgia Screening for diabetes mellitus Impaired glucose tolerance test Encounter for therapeutic drug monitoring Systemic lupus erythematosus ([facility]) Screening examination for poliomyelitis Atrophic arthritis ([facility]) Hypouricemia DNA ANTIBODY, [place]/DBL STRAN Routine 12/19/2024 2:09 PM CDT Anemia, unspecified Fatigue Senile arthritis Myalgia Screening for diabetes mellitus Impaired glucose tolerance test Encounter for therapeutic drug monitoring Systemic lupus erythematosus ([facility]/HCC) Screening examination for poliomyelitis Atrophic arthritis ([facility]CC) Hypouricemia CHROMATIN (NUCLEOSOMAL) AB Routine 12/19/2024 2:09 PM CDT Anemia, unspecified Fatigue Senile arthritis Myalgia Screening for diabetes mellitus Impaired glucose tolerance test Encounter for therapeutic drug monitoring Systemic lupus erythematosus ([facility]/HCC) Screening examination for poliomyelitis Atrophic arthritis ([facility]/HCC) Hypouricemia HEPATITIS C RNA W/ REFLX GENOTYPE Routine 12/19/2024 2:09 PM CDT Anemia, unspecified Fatigue Senile arthritis Myalgia Screening for diabetes mellitus Impaired glucose tolerance test Encounter for therapeutic drug monitoring Systemic lupus erythematosus ([facility]/HCC) Screening examination for poliomyelitis Atrophic arthritis ([facility]/HCC) Hypouricemia HC URINALYSIS AUTO W/O MICRO Routine 12/19/2024 2:09 PM CDT Anemia, unspecified Fatigue Senile arthritis Myalgia Screening for diabetes mellitus Impaired glucose tolerance test Encounter for therapeutic drug monitoring Systemic lupus erythematosus ([facility]/HCC) Screening examination for poliomyelitis Atrophic arthritis ([facility]/HCC) Hypouricemia CARDIOLIPIN ANTIBODIES (IGG,IGA,IGM) Routine 12/19/2024 2:09 PM CDT Anemia, unspecified Fatigue Senile arthritis Myalgia Screening for diabetes mellitus Impaired glucose tolerance test Encounter for therapeutic drug monitoring Systemic lupus erythematosus ([facility]/HCC) Screening examination for poliomyelitis Atrophic arthritis ([facility] H[facility]/HCC) Hypouricemia LUPUS ANTICOAGULANT EVAL W/RFX Routine 12/19/2024 2:09 PM CDT Anemia, unspecified Fatigue Senile arthritis Myalgia Screening for diabetes mellitus Impaired glucose tolerance test Encounter for therapeutic drug monitoring Systemic lupus erythematosus ([facility]/HCC) Screening examination for poliomyelitis Atrophic arthritis ([facility]) Hypouricemia BETA 2 GLYCOPROTEIN I ANTIBODY,EA Routine 12/19/2024 2:09 PM CDT Anemia, unspecified Fatigue Senile arthritis Myalgia Screening for diabetes mellitus Impaired glucose tolerance test Encounter for therapeutic drug monitoring Systemic lupus erythematosus ([facility]) Screening examination for poliomyelitis Atrophic arthritis ([facility]) Hypouricemia COMPLEMENT, TOTAL (CH50) Routine 12/19/2024 2:09 PM CDT Anemia, unspecified Fatigue Senile arthritis Myalgia Screening for diabetes mellitus Impaired glucose tolerance test Encounter for therapeutic drug monitoring Systemic lupus erythematosus ([facility]) Screening examination for poliomyelitis Atrophic arthritis ([facility]) Hypouricemia COMPLEMENT C4 Routine 12/19/2024 2:09 PM CDT Anemia, unspecified Fatigue Senile arthritis Myalgia Screening for diabetes mellitus Impaired glucose tolerance test Encounter for therapeutic drug monitoring Systemic lupus erythematosus ([facility]) Screening examination for poliomyelitis Atrophic arthritis ([facility]) Hypouricemia COMPLEMENT C3 Routine 12/19/2024 2:09 PM CDT Anemia, unspecified Fatigue Senile arthritis Myalgia Screening for diabetes mellitus Impaired glucose tolerance test Encounter for therapeutic drug monitoring Systemic lupus erythematosus ([facility]) Screening examination for poliomyelitis Atrophic arthritis ([facility]) Hypouricemia HEPATITIS C ANTIBODY Routine 12/19/2024 2:09 PM CDT Anemia, unspecified Fatigue Senile arthritis Myalgia Screening for diabetes mellitus Impaired glucose tolerance test Encounter for therapeutic drug monitoring Systemic lupus erythematosus ([facility]) Screening examination for poliomyelitis Atrophic arthritis ([facility]) Hypouricemia HEMOGLOBIN, GLYCOSYLATED Routine 12/19/2024 2:09 PM CDT Anemia, unspecified Fatigue Senile arthritis Myalgia Screening for diabetes mellitus Impaired glucose tolerance test Encounter for therapeutic drug monitoring Systemic lupus erythematosus ([facility]) Screening examination for poliomyelitis Atrophic arthritis ([facility]) Hypouricemia SED RATE, ERYTHROCYTE (ESR) Routine 12/19/2024 2:09 PM CDT Anemia, unspecified Fatigue Senile arthritis Myalgia Screening for diabetes mellitus Impaired glucose tolerance test Encounter for therapeutic drug monitoring Systemic lupus erythematosus ([facility]) Screening examination for poliomyelitis Atrophic arthritis ([facility]) Hypouricemia URIC ACID BLOOD Routine 12/19/2024 2:09 PM CDT Anemia, unspecified Fatigue Senile arthritis Myalgia Screening for diabetes mellitus Impaired glucose tolerance test Encounter for therapeutic drug monitoring Systemic lupus erythematosus ([facility]) Screening examination for poliomyelitis Atrophic arthritis ([facility]) Hypouricemia CK (CPK) Routine 12/19/2024 2:09 PM CDT Anemia, unspecified Fatigue Senile arthritis Myalgia Screening for diabetes mellitus Impaired glucose tolerance test Encounter for therapeutic drug monitoring Systemic lupus erythematosus ([facility]) Screening examination for poliomyelitis Atrophic arthritis ([facility]) Hypouricemia CYCLIC CITRULLINATED PEPTIDE (CCP)ANTIBODY(IGG) Routine 12/19/2024 2:09 PM CDT Anemia, unspecified Fatigue Senile arthritis Myalgia Screening for diabetes mellitus Impaired glucose tolerance test Encounter for therapeutic drug monitoring Systemic lupus erythematosus ([facility]) Screening examination for poliomyelitis Atrophic arthritis ([facility]) Hypouricemia RHEUMATOID FACTOR, QUANT Routine 12/19/2024 2:09 PM CDT Anemia, unspecified Fatigue Senile arthritis Myalgia Screening for diabetes mellitus Impaired glucose tolerance test Encounter for therapeutic drug monitoring Systemic lupus erythematosus ([facility]) Screening examination for poliomyelitis Atrophic arthritis ([facility]) Hypouricemia VITAMIN B1 THIAMINE Routine 12/19/2024 2 :09 PM CDT Anemia, unspecified Fatigue Senile arthritis Myalgia Screening for diabetes mellitus Impaired glucose tolerance test Encounter for therapeutic drug monitoring Systemic lupus erythematosus ([facility]) Screening examination for poliomyelitis Atrophic arthritis ([facility] H[facility]/HCC) Hypouricemia RETICULOCYTE CT, AUTO Routine 12/19/2024 2:09 PM CDT Anemia, unspecified Fatigue Senile arthritis Myalgia Screening for diabetes mellitus Impaired glucose tolerance test Encounter for therapeutic drug monitoring Systemic lupus erythematosus ([facility]) Screening examination for poliomyelitis Atrophic arthritis ([facility]) Hypouricemia IRON SAT PANEL (IRON,IBC,%SAT) Routine 12/19/2024 2:09 PM CDT Anemia, unspecified Fatigue Senile arthritis Myalgia Screening for diabetes mellitus Impaired glucose tolerance test Encounter for therapeutic drug monitoring Systemic lupus erythematosus ([facility]) Screening examination for poliomyelitis Atrophic arthritis ([facility]) Hypouricemia from Last 3 Months Results * XR ANKLE RT 2V (12/19/2024 2:49 PM CDT) Anatomical Region Laterality Modality Ankle Radiographic Vika ging 12/19/2024 4:06 PM CDT Impressions 12/19/2024 4:07 PM CDT IMPRESSION: No radiographic abnormality identified. Ordered By: LORENZO BALLESTEROS Interpreted By: Goran Sharif MD, 12/19/2024 4:06 PM Narrative 12/19/2024 4:07 PM CDT [facility] [address] [facility] [place] [address] Examination: XR ANKLE RT 2V, XR FOOT [...] Procedure Note Goran Sharif MD - 12/19/2024 [facility] [address] [place] [address] Examination: XR ANKLE RT 2V, XR FOOT [...] 4:05 PM Narrative 12/19/2024 4:06 PM CDT [facility] [address] [place] [address] Examination: XR ANKLE LT 2V, XR FOOT [...] Procedure Note Goran Sharif MD - 12/19/2024 [facility] [address] [address] Examination: XR ANKLE LT 2V, XR FOOT [...] 4:06 PM Narrative 12/19/2024 4:07 PM CDT [address] [place] [address] Examination: XR ANKLE RT 2V, XR FOOT [...] Procedure Note Goran Sharif MD - 12/19/2024 [place] [id number] [facility] [place] [address] Examination: XR ANKLE RT 2V, XR FOOT [...] 4:05 PM Narrative 12/19/2024 4:06 PM CDT [facility] [address] [place] [address] Examination: XR ANKLE LT 2V, XR FOOT [...] Procedure Note Goran Sharif MD - 12/19/2024 [facility] [address] [place] [address] Examination: XR ANKLE LT 2V, XR FOOT [...] 4:03 PM Narrative 12/19/2024 4:04 PM CDT [address] [place] [address] Examination: XR KNEE RT 2V Exam time: [...] Procedure Note Goran Sharif MD - 12/19/2024 [facility] [address] [place] [address] Examination: XR KNEE RT 2V Exam time: [...] 4:04 PM Narrative 12/19/2024 4:04 PM CDT [address] [place] [address] Examination: XR KNEE LT 2V Exam time: [...] Procedure Note Goran Sharif MD - 12/19/[address] [place] [address] Examination: XR KNEE LT 2V Exam time: [...] By: Goran Sharif MD, 12/19/2024 4:04 PM Lroenzo Ballesteros MD GENERAL IMAGING Final Result * SM AND SM/NURSE MIDWIFE/CLINICAL INSTRUCTOR ANTIBODIES (12/19/2024 2:09 PM CDT) Pathologist [facility] SM ANTIBODY <1.0 12/22/2024 7:43 PM CDT [facility] Comment: Reference Range: < 1.0 NEG AI SM/NURSE MIDWIFE/CLINICAL INSTRUCTOR AB S/P/B <1.0 7:43 PM CDT [facility] Comment: Reference Range: < 1.0 NEG AI Test Performed by [facility], [facility], [address] [place] [address] Angel Bradley M.D., Ph.D., Director of Laboratories , CLIA [id number] 12/19/2024 2:09 PM CDT Lorenzo Ballesteros MD LABORATORY Final Result [address] [address], * LUPUS ANTICOAGULANT EVAL W/RFX (12/19/2024 2:09 PM CDT) Pathologist [facility] LUPUS ANTICOAGULANT REPORT 12/23/2024 5:01 AM CDT [facility] Comment: A Lupus Anticoagulant is not detected. Reference Range: Not Detected For additional information, please refer to http://education.PureSafe water systems.Thinkature/faq/FNW37p4 (This link is being provided for informational/ educational purposes only.) This interpretation is based on the following test results. PTT (LUPUS ANTICOAGULANT) 37 <=40 sec 12/23/2024 5:01 AM CDT [facility] Comment: Test Performed by [facility], [employer], [address] [place] [place] [address] Angel Bradley M.D., Ph.D., Director of Laboratories , CLIA [id number] DRVVT SCREEN 36 <=45 sec 12/23/2024 5:01 AM CDT [facility] 12/19/2024 2:09 PM CDT us Lorenzo Ballesteros MD LABORATORY Final Result Performing Organization Address [facility]/ZIP Co de Phone Number [facility] [place] [phone] [place], [place] , * CHROMATIN (NUCLEOSOMAL) AB (12/19/2024 2:09 PM CDT) CHROMATIN (NUCLEOSOMAL)AB <1.0 12/22/2024 7:43 PM CDT [facility] NetworkTIL LY Comment: Reference Range: < 1.0 NEG AI Test Performed by [facility], [facility], [address] [place] [place] [address] Angel Bradley M.D., Ph.D., Director of Laboratories , [facility] [id number] 12/19/2024 2:09 PM CDT us Lorenzo Ballesteros MD LABORATORY Final Result Performing Organization Address [facility]/ZIP Co de Phone Number [facility] [place] [phone] [place], [place] , [place] [phone] * HEPATITIS C RNA W/ REFLX GENOTYPE (12/19/2024 2:09 PM CDT) HEPATITIS C RNA PCR QNT <15 IU/mL 12/22/2024 4:33 PM CDT [facility] Comment: HCV RNA Not Detected HEP C RNA PCR QNT LOG <1.18 log IU/mL 12/22/2024 4:33 PM CDT [facility] Comment: HCV RNA Not Detected Reference Range: Not Detected IU/mL Not Detected Log IU/mL For additional information please refer to http://education.PureSafe water systems.Thinkature/faq/GIZ46u2 (This link is being provided for informational/ educational purposes only.) Test Performed by [employer], [employer], [address] [place], [place] Angel Bradley M.D., Ph.D., Director of Laboratories , [facility] [id number] 12/19/2024 2:09 PM CDT Lorenzo Ballesteros MD LABORATORY Final Result [facility] [address] [place], [place] , * CARDIOLIPIN ANTIBODIES (IGG,IGA,IGM) (12/19/2024 2:09 PM CDT) CARDIOLIPIN AB IGG <2.0 <20.0 GP 2024 8:50 PM CDT [employer] [facility] Comment: U/mL Value Interpretation ----- < 20.0 Antibody not detected > or = 20.0 Antibody detected CARDIOLIPIN AB IGM <2.0 <20.0 [facility] 2024 8:50 PM CDT [facility] Comment: U/mL Value Interpretation ----- [...] aging. For additional information, please refer to http://education.Rambus/faq/XQY302 (This link is being provided for informational/ educational purposes only.) Test Performed by [facility], [facility] [facility], [address] [place] [address] Angel Bradley M.D., Ph.D., Director of Laboratories , [place] [id number] CARDIOLIPIN AB IGA <2.0 <20.0 APL 2024 8:50 PM CDT [facility] Comment: U/mL Value Interpretation ----- < 20.0 Antibody not detected > or = 20.0 Antibody detected 12/19/2024 2:09 PM CDT us Lorenzo Ballesteros MD LABORATORY Final Result [facility] [address] [address], [place] [phone] * RHEUMATOID FACTOR, QUANT (12/19/2024 2:09 PM CDT) RHEUMATOID FACTOR <10 <15 IU/ML 12/19/2024 7:[address] [facility] 12/19/2024 2:09 PM CDT us Lorenzo Ballesteros MD LABORATORY Final Result [facility] [address] [place] [address], [place] [phone] * CYCLIC CITRULLINATED PEPTIDE (CCP)ANTIBODY(IGG) (12/19/2024 2:09 PM CDT) CITRULLINE PEPTIDE ANTIBODY <16 <20 Units 12/22/2024 4:28 AM CDT [facility] LY Comment: Negative: <20 Weak Positive: 20 - 39 Moderate Positive: 40 - 59 Strong Positive: >59 Test Performed by [facility] Care[facility] Hugo[facility], [facility], [address] [place], [place] Angel Bradley M.D., Ph.D., Director of Laboratories , CLIA [id number] 12/19/2024 2:09 PM CDT Lorenzo Ballesteros MD LABORATORY Final Result Performing Organization Address [facility]/ZIP Co de Phone Number [facility] [address] [place], [place] , [place] [phone] * ANATOLY-1 ANTIBODY (12/19/2024 2:09 PM CDT) ANATOLY-1 ANTIBODY <1.0 12/22/2024 7:43 PM CDT [facility] LY Comment: Reference Range: < 1.0 NEG AI Test Performed by [employer], [facility], [address] [place] [address] Angel Bradley M.D., Ph.D., Director of Laboratories , CLIA [id number] 12/19/2024 2:09 PM CDT us Lorenzo Ballesteros MD LABORATORY Final Result Performing Organization Address City/[facility]/ZIP Co de Phone Number [facility] [address] [place], [place] , [place] [phone] * COMPLEMENT C4 (12/19/2024 2:09 PM CDT) COMPLEMENT C4 28 15 - 57 mg/dL 12/22/2024 5:08 PM CDT [facility] LY Comment: Test Performed by [facility], [facility], [address] [place], [place] Angel Bradley M.D., Ph.D., Director of Laboratories , [facility] [id number] 12/19/2024 2:09 PM CDT us Lorenzo Ballesteros MD LABORATORY Final Result [facility] [address] [place], [place] , [place] [phone] * COMPLEMENT C3 (12/19/2024 2:09 PM CDT) COMPLEMENT C3 152.0 90.0 - 180.0 MG/DL 12/20/2024 11:54 AM CDT [facility] 12/19/2024 2:09 PM CDT us Lorenzo Ballesteros MD LABORATORY Final Result Performing Organization Address [facility] Co de Phone Number [facility] [address] [place] [address], [place] [phone] * HEMOGLOBIN, GLYCOSYLATED (12/19/2024 2:09 PM CDT) HGB A1C 4.9 <5.7 % 12/19/2024 3:06 PM CDT [facility] Comment: INCREASED RISK OF DIABETES <5.7% NON-DIABETES 5.7-6.4% INCREASED RISK FOR FUTURE DIABETES > OR = 6.5 CONSISTENT WITH DIABETES STANDARDS OF MEDICAL CARE IN DIABETES-2010 DIABETES CARE, 33(SUPP 1): S1-S61,2010 ESTIMATED AVG GLUCOSE 94 mg/dL 12/19/2024 3:06 PM CDT [facility] 12/19/2024 2:09 PM CDT us Lorenzo Ballesteros MD LABORATORY Final Result [facility] [address] [place] [address], [place] [phone] * (ABNORMAL) IRON SAT PANEL (IRON,IBC,%SAT) (12/19/2024 2:09 PM CDT) IRON 67 50 - 170 MCG/DL 12/19/2024 3:18 PM CDT [facility] IRON BINDING CAPACITY 409 250 - 450 MCG/DL 12/19/2024 3:18 PM CDT [facility] IRON SATURATION 16(L) 20 - 55 % 3:18 PM CDT [facility] 12/19/2024 2:09 PM CDT Lorenzo Ballesteros MD LABORATORY Final Result Performing Organization Address City/State/[facility] Co de Phone Number [facility] [address] [place] [address], [place] [phone] * (ABNORMAL) URINALYSIS (12/19/2024 2:09 PM CDT) COLOR (U) YELLOW 12/19/2024 3:02 PM CDT [facility] TRANSPARENCY CLEAR 12/19/2024 3:02 PM CDT [facility] SPECIFIC GRAVITY (U) 1.015 1.000 - 1.030 12/19/2024 3:02 PM CDT [facility] U PH 7.0 5.0 - 9.0 12/19/2024 3:02 PM CDT [facility] LEUKOCYTES (U) NEGATIVE NEGATIVE 12/19/2024 3:02 PM CDT [facility] NITRITES NEGATIVE NEGATIVE 12/19/2024 3:02 PM CDT [facility] PROTEIN RANDOM (U) NEGATIVE NEGATIVE 12/19/2024 3:02 PM CDT [facility] GLUCOSE (U) NEGATIVE NEGATIVE 12/19/2024 3:02 PM CDT [facility] KETONES MG/DL (U) TRACE(A) NEGATIVE 12/19/2024 3:02 PM CDT [facility] BILIRUBIN (U) NEGATIVE NEGATIVE 12/19/2024 3:02 PM CDT [facility] BLOOD (U) TRACE(A) NEGATIVE 12/19/2024 3:02 PM CDT [facility] URINE SPECIMEN OBTAINED BY CLEAN CATCH PROCEDURE / Unknown 12/19/2024 2:09 PM CDT us Lorenzo Ballesteros MD URINE ORDERABLES Final Result Performing Organization Address City/[facility]/ZIP Co de Phone Number [facility] [address] [place] [address], * ENA2 (SSA & SSB) (12/19/2024 2:09 PM CDT) SSA ANTIBODY <1.0 12/22/2024 7:43 PM CDT [facility] [employer] Comment: Reference Range: < 1.0 NEG AI SSB ANTIBODY <1.0 12/22/2024 7:43 PM CDT [facility] [employer] Comment: Reference Range: < 1.0 NEG AI Test Performed by Kelsey Albarran, [employer] [facility], [address] [place] [address] Angel Bradley M.D., Ph.D., Director of Laboratories , [facility] [id number] 12/19/2024 2:09 PM CDT us Lorenzo Ballesteros MD LABORATORY Final Result Performing Organization Address City/[facility]/ZIP Co de Phone Number [employer] Technologies[employer]ENNY VIL[facility] [id number] [place] [address], [place] [phone] * RETICULOCYTE CT, AUTO (12/19/2024 2:09 PM CDT) RETICULOCYTE COUNT 1.5 0.5 - 1.5 % 12/19/2024 2:46 PM CDT [facility] 12/19/2024 2:09 PM CDT us Lorenzo Ballesteros MD LABORATORY Final Result Performing Organization Address City/[facility]/ZIP Co de Phone Number [facility] [address] [place] [address], [place] [phone] * (ABNORMAL) SED RATE, ERYTHROCYTE (ESR) (12/19/2024 2:09 PM CDT) ESR 29(H) 0 - 20 MM/HR 12/19/2024 2:49 PM CDT [facility] 12/19/2024 2:09 PM CDT us Lorenzo Ballesteros MD LABORATORY Final Result [facility] [address] [place] [address], [place] [phone] * URINALYSIS MICRO ONLY (12/19/2024 2:09 PM CDT) WBC/HPF NONE SEEN 0 - 5 /HPF 12/19/2024 3:02 PM CDT [facility] RBC/HPF NONE SEEN 0 - 5 /HPF 12/19/2024 3:02 PM CDT [facility] EPI/HPF FEW /HPF 12/19/2024 3:02 PM CDT [facility] 12/19/2024 2:09 PM CDT us Lorenzo Ballesteros MD URINE ORDERABLES Final Result [facility] [address] [place] [address], [place] [phone] * HEPATITIS C ANTIBODY (12/19/2024 2:09 PM CDT) HEPATITIS C AB NON-REACTI VE NON-REACTI VE 12/19/2024 8:[address] [facility] 12/19/2024 2:09 PM CDT us Lorenzo Ballesteros MD LABORATORY Final Result Performing Organization Address City/[facility]/ZIP Co de Phone Number [facility] [address] [place] [address], [place] [phone] * DNA ANTIBODY, [place]/DBL STRAN (12/19/2024 2:09 PM CDT) DNA (DS) ANTIBODY <1 <=4 IU/mL 025 7:43 PM CDT [facility] [employer] Comment: Value Interpretation <or=4 IU/mL: Negative 5 - 9 IU/mL: Indeterminate >or=10 IU/mL: Positive Test Performed by [facility], [facility], [address] [place] [address] Angel Bradley M.D., Ph.D., Director of Laboratories , [facility] [id number] 12/19/2024 2:09 PM CDT us Lorenzo Ballesteros MD LABORATORY Final Result [facility] JOSÉ MANUELKELSEY [address] [place], [place] , [place] [phone] * (ABNORMAL) COMPLEMENT, TOTAL (CH50) (12/19/2024 2:09 PM CDT) COMPLEMENT CH50 >60(H) 31 - 60 U/mL 12/22/2024 12:35 PM CDT [facility] [employer] Comment: Test Performed by Kelsey Albarran, [facility] Aiyana Ramirez, [address] [place] [address] Angel Bradley M.D., Ph.D., Director of Laboratories , [facility] [id number] 12/19/2024 2:09 PM CDT Lorenzo Ballesteros MD LABORATORY Final Result [facility] GEORGESKELSEY [address] [place] [address] , * BETA 2 GLYCOPROTEIN I ANTIBODY,EA (12/19/2024 2:09 PM CDT) BETA-2 GLYCOPROTEIN I IGG <2.0 <20.0 U/mL 12/22/2024 4:51 AM CDT [facility] VALENTIN REEDER Comment: Value Interpretation ----- < 20.0 Antibody not detected > or = 20.0 Antibody detected BETA-2 GLYCOPROTEIN I IGM <2.0 <20.0 U/mL 12/22/2024 4:51 AM CDT [facility] VALENTIN REEDER Comment: Value Interpretation ----- < 20.0 Antibody not detected > or = 20.0 Antibody detected BETA-2 GLYCOPROTEIN I IGA <2.0 <20.0 U/mL 12/22/2024 4:51 AM CDT [facility] VALENTIN REEDER Comment: Value Interpretation ----- < [...] aging. For additional information, please refer to http://education.Rambus/faq/HGA269 (This link is being provided for informational/ educational purposes only.) Test Performed by [facility] [employer], [address] [place] [address] Angel Bradley M.D., Ph.D., Director of Laboratories , CLIA [id number] 12/19/2024 2:09 PM CDT Lorenzo Ballesteros MD LABORATORY Final Result [employer] [address], * VITAMIN B1 THIAMINE (12/19/2024 2:09 PM CDT) [facility] VITAMIN B1 S/P/B 16 8 - 30 nmol/L 12/29/2024 12:17 PM CDT [employer]CORKY [facility]ARDING Comment: Vitamin supplementation within 24 hours prior to blood draw may affect the accuracy of the results. This test was developed and its analytical performance characteristics have been determined by [facility] [place], [place]. It has not been cleared or approved by the U.S. Food and Drug Administration. This assay has been validated pursuant to the CLIA regulations and is used for clinical purposes. Test Performed by [facility], [address] [place] [address] Angel Bradley M.D., Ph.D., Director of Laboratories , CLIA [id number] 12/19/2024 2:09 PM CDT us Lorenzo Ballesteros MD LABORATORY Final Result [facility] [address] , [place] [phone] * FERRITIN (12/19/2024 2:09 PM CDT) FERRITIN 125.0 8.0 - 388.0 NG/ML 12/19/2024 3:24 PM CDT [facility] 12/19/2024 2:09 PM CDT us Lorenzo Ballesteros MD LABORATORY Final Result Performing Organization Address City/[facility]/ZIP Co de Phone Number [facility] [address] [place] [address], [place] [phone] * CK (CPK) (12/19/2024 2:09 PM CDT) CPK 35 26 - 192 U/L 12/19/2024 3:24 PM CDT [facility] 12/19/2024 2:09 PM CDT us Lorenzo Ballesteros MD LABORATORY Final Result Performing Organization Address City/[facility]/ZIP Co de Phone Number [facility] [address] [place] [address], [place] [phone] * URIC ACID BLOOD (12/19/2024 2:09 PM CDT) URIC ACID 3.6 2.6 - 6.0 MG/DL 12/19/2024 3:24 PM CDT [facility] 12/19/2024 2:09 PM CDT Lorenzo Ballesteros MD LABORATORY Final Result [facility] [address] [place] [address], [place] [phone] from Last 3 Months Insurance [facility] Care Teams Cath Lab Radiology Technician Relationship Specialty Start Date End Date Non-Staff, Provider PCP - General UNKNOWN PHYSICIAN SPECIALTY 10/05/24
--- OUTSIDE RECORDS SUMMARY | 2025-01-15 12:55 | XMS_ITS | Clinical Summary ---
Author Organization [facility] [place] [address] Address [address] [place] [address] Care Team Providers Care Band Splicer Name Role Phone Paulo Gonsalez MD Primary Care Provider Nikky Calixot MD Unavailable [phone] Allergies Active Allergy Reactions Criticality Noted Date [...] 08/22/2024 Assessment & Plan (08/29/2024 10:22 AM HEALTH PSYCHOLOGIST): I have reviewed the hospital record, medications, and relevant testing from Patricia Ford's recent admission. Complications and discharge plan have been noted, reviewed. Post-discharge testing has been ordered. Gastroparesis 08/22/2024 Assessment & Plan (09/14/2024 11:16 AM HEALTH PSYCHOLOGIST): New diagnosis of idiopathic gastroparesis that may be postinfectious given her clinical presentation. We will order a CT enterography as the next step, mainly to ensure no obvious small bowel mass/abnormality contributing to presentation. Difficult situation, as she has an allergy to Reglan and prochlorperazine - with history of dystonia with use. She has an upcoming visit at [facility] - defer possibility/consideration of domperidone to [place]. She was educated on dietary modification, hydration, [...] establish with a [facility] moving forward - she reports having [...] is in the process of seeing a exercise physiologist. Advised to consult with a exercise physiologist to possibly changing the medication. I reviewed [...] medication. Assessment & Plan (12/02/2022 9:46 PM HEALTH PSYCHOLOGIST): 4-5 loose bowel movements daily. Did not [...] 09/22/2022 Assessment & Plan (09/23/2022 8:44 AM HEALTH PSYCHOLOGIST): Worsening. May represent IBD versus IBS. She [...] 07/31/2022 Assessment & Plan (09/23/2022 8:45 AM HEALTH PSYCHOLOGIST): Worsening nausea and vomiting. Associated with epigastric discomfort. As taking omeprazole and Zofran without relief. May be gastroesophageal reflux disease. Functional abdominal pain syndrome. EGD is recommended and scheduled. Assessment & Plan (09/13/2022 2:21 PM HEALTH PSYCHOLOGIST): Continue fiber supplement; urged more natural sources [...] with me has been performed today. Patricia Ford is not up to date on screening [...] 12/21/2021 Assessment & Plan (12/02/2022 11:04 AM HEALTH PSYCHOLOGIST): Intermittently symptomatic. Advised to continue omeprazole. Counseled [...] Department Care Team Description 01/15/2025 Results Follow-Up [facility] Primary Care at [address] [address] Paulo Gonsalez MD 01/12/2025 Results Follow-Up [facility] Obstetrics and Gynecology [facility]ly [facility] 13th [place] [address] [place] [address] Nikky Calixto MD 01/11/2025 12:45 PM CDT Ancillary Procedure [facility] Imaging at [address] [address] 01/11/2025 12:15 PM CDT Lab [facility] Outpatient Lab at [address] [address] Bronchitis (Primary Dx) 01/11/2025 12:10 PM CDT - 01/11/2025 11:59 PM CDT Hospital Encounter [address] [address] Bronchitis; Asymptomatic microscopic hematuria Discharge Disposition: Discharge to home or self care 01/11/2025 11:30 AM CDT Office Visit [facility] Primary Care at [address] [address] Paulo Gonsalez MD Bronchitis (Primary Dx); Asymptomatic microscopic hematuria 01/01/2025 2:46 PM CDT - 01/01/2025 11:59 PM CDT Hospital Encounter [facility] [address] [place] [address] Cervical cancer screening Discharge Disposition: Discharge to home or self care 01/01/2025 1:45 PM CDT Office Visit [facility] Obstetrics and Gynecology [address] [place] [address] [address] [place] [phone] Nikky Calixto MD Well woman exam with routine gynecological exam (Primary Dx); Cervical cancer screening; Surveillance for control, oral contraceptives; Cysts of both ovaries; Dyspareunia due to medical condition in female 01/01/2025 8:00 AM CDT Therapy [facility] Therapy [address] [facility] 1st Floor [address] [place] [phone] Claudia Ibarra DPT Pelvic floor dysfunction (Primary Dx) 01/01/2025 Orders Only [facility] Obstetrics and Gynecology [address] [facility] 7th Floor [address] [place] [phone] Nikky Calixto MD 12/20/2024 Results Follow-Up [facility] Convenient Care at [address] [address] Sabrina Mukherjee NP 12/18/2024 2:42 PM CDT - 12/18/2024 11:59 PM CDT Hospital Encounter [facility] [id number] [place] [address] Acute sore throat; Fever, unspecified fever cause Discharge Disposition: Discharge to home or self care 12/18/2024 12:00 PM CDT Office Visit [facility] Convenient Care at [address] [address] Sabrina Mukherjee NP Acute sore throat (Primary Dx); Fever, unspecified fever cause 12/12/2024 11:00 AM CDT Therapy [facility] Physical Therapy [address] [facility] 1st Floor Suite [facility] [place] [address] Claudia Ibarra DPT Pelvic floor dysfunction 11/15/2024 9:00 AM HEALTH PSYCHOLOGIST - 11/15/2024 11:59 PM HEALTH PSYCHOLOGIST Hospital Encounter [facility] [address] [place] [address] Chronic nausea; Adrenal gland dysfunction Discharge Disposition: Discharge to home or self care 11/15/2024 9:00 AM HEALTH PSYCHOLOGIST Lab [facility] Outpatient Lab at [address] [address] 11/10/2024 Telephone [facility] Obstetrics and Gynecology [address] [place] [address] Alexandra Robbins Scheduling Appointments 11/08/2024 8:30 AM HEALTH PSYCHOLOGIST Lab [facility] Outpatient Lab at [address] [phone] Hospital discharge follow-up (Primary Dx) 11/08/2024 8:26 AM HEALTH PSYCHOLOGIST - 11/08/2024 11:59 PM HEALTH PSYCHOLOGIST Hospital Encounter [place] [id number] [place] [address] Chronic nausea; Adrenal gland dysfunction Discharge Disposition: Discharge to home or self care 11/03/2024 Orders Only [facility] Primary Care at [address] [phone] Paulo Gonsalez MD 11/02/2024 Patient Message [facility] Primary Care at [address] [phone] Paulo Gonsalez MD Questions 11/02/2024 Telephone [facility] Primary Care at [address] [phone] Paulo Gonsalez MD Requesting labs from Last [...] Polio, Unspecified 05/12/2004 Tdap 03/21/2024,02/24/2012 Varicella 04/20/2024,,02/20/2010,10/08 Surgical History Surgery Date Site/Laterality Comments MENISCUS [...] URINE, 24 HOUR Routine 11/15/2024 9:00 AM HEALTH PSYCHOLOGIST Chronic nausea Adrenal gland dysfunction CORTISOL, URINE, FREE Routine 11/15/2024 9:00 AM HEALTH PSYCHOLOGIST Chronic nausea Adrenal gland dysfunction CORTISOL, URINE, 24 HOUR Routine 11/15/2024 9:00 AM HEALTH PSYCHOLOGIST Chronic nausea Adrenal gland dysfunction DEXAMETHASONE Routine 11/08/2024 8:25 AM HEALTH PSYCHOLOGIST Chronic nausea Adrenal gland dysfunction from Last [...] Vijay Tran M.D. KT T: Report ID: [id number] Reading Location: [place] [address] Procedure Note Vijay Tran MD - 01/11/2025 [...] Vijay Tran M.D. KT T: Report ID: [id number] Reading Location: [place] [address] us Paulo Gonsalez MD IMG XR PROCEDURES [...] Gonsalez MD LAB BLOOD ORDERABLES Final Result [facility] [address] Department [place] [address] * Differential, auto (01/11/2025 12:10 PM CDT) Neutrophil abs 5.05 1.50 - 6.50 K/cumm Imm gran abs 0.04 0.00 - 0.10 K/cumm [facility] Lymphocyte abs 2.88 0.80 - 3.30 K/cumm [facility] Monocyte abs 0.50 0.20 - 0.80 K/cumm [facility] Eosinophil abs 0.04 0.00 - 0.50 K/cumm [facility] Basophil abs 0.02 0.00 - 0.10 K/cumm [facility] Neutrophil pct 59.1 % [facility] Comment: Interpretive Data Percent cell count [...] revised on 2018. Lymphocyte pct 33.8 % JOANN Comment: Interpretive Data Percent cell count reference ranges are not reported, since discordance with absolute values may lead to misinterpretation of CBC data. Current Interpretive Data was last revised on 2018. Monocyte pct 5.9 % [facility] Comment: Interpretive Data Percent cell count reference ranges are not reported, since discordance with absolute values may lead to misinterpretation of CBC data. Current Interpretive Data was last revised on 2018. Eosinophil pct 0.5 % JOANN Comment: Interpretive Data Percent cell count reference ranges are not reported, since discordance with absolute values may lead to misinterpretation of CBC data. Current Interpretive Data was last revised on 2018. Basophil pct 0.2 % [facility] Comment: Interpretive Data Percent cell count reference ranges are not reported, since discordance with absolute values may lead to misinterpretation of CBC data. Current Interpretive Data was last revised on 2018. Blood 01/11/2025 12:1 0 PM CDT 01/12/2025 11:46 AM CDT us Paulo Gonsalez MD LAB BLOOD ORDERABLES Final Result [facility] [address] [place] [address] * (ABNORMAL) Urinalysis reflex to microscopic and culture Urine (01/11/2025 12:10 PM CDT) Color, ur Yellow Yellow Clarity, ur Turbid(A) Clear [facility] Specific gravity, ur 1.021 1.003 - 1.030 JOANN pH, urine 7.0 [facility] Comment: Interpretive Data U rine pH is affected by diet, medications, systemic acid-base disturbances, and renal tubular function. pH may affect urinary stone formation. For example, urine pH below 6.0 may help reduce the tendency for calcium phosphate stones and pH greater than 6.0 may reduce the tendency for uric acid stone formation. Source: [facility] [employer] Current Interpretive Data was last revised on [...] for microscopic UA and culture not met. [facility] Urine 01/11/2025 12:1 0 PM CDT 01/12/2025 11:46 AM CDT Paulo Gonsalez MD LAB MICROBIOLOGY - GENERAL ORDERABLES Final Result [facility] [address] Department [place] [address] * (ABNORMAL) CBC with auto differential (01/11/2025 [...] LAB BLOOD ORDERABLES Final Result [facility] LOZ[facility] [address] Department [place] [address] * Comprehensive metabolic panel (01/11/2025 12:10 PM [...] BLOOD ORDERABLES Final Result Performing Organization Address City/[facility]/ZIP Co de Phone Number JOANN LOZANO [address] Department [place] [address] * Pap, Reflexed from High Risk HPV and Genotyping (01/01/2025 2:33 PM CDT) Pap test 01/01/2025 2:33 PM CDT 01/02/2025 4:05 AM CDT Narrative 01/11/2025 6:39 AM CDT EPIC results best viewed via link to PDF [facility] [place] [address] Note to Patients: This report may contain [...] details. CYTOPATHOLOGY REPORT FINAL Patient Name: PATRICIA OFRD Gender: F : 2000 (Age: 24) Address: [address] [place] [phone] Hospital #: [id number] Service: DEFAULT Location: Patient Type: [facility] SPECIMEN Taken: 01/01/2025 Received: 01/02/2025 Accessioned: 01/02/2025 [...] clinical information and biopsy results as indicated. [facility] Clinical Laboratory Improvement Amendments (CLIA) mandate that cytologic and histologic results be correlated for laboratory quality assurance supervisor body & improvement standards. FOR ALL HIGH-GRADE CASES [...] determined by the Surgical Pathology Department at [facility] as part of an ongoing supplier quality engineer program and in compliance with federally mandated [...] determined by the Surgical Pathology Department of [facility]. It has not been cleared or approved by the U. S. Food and Drug Administration. us Nikky Calixto MD LAB CYTOLOGY ORDERABLES F inal Result * ThinPrep processing (Molecular component) (01/01/2025 2:33 PM CDT) ThinPrep processing (Molecular component) Specimen received for processing. [facility] Comment:Testing performed by : [facility], [address] [place]., [address] Endocervical 01/01/2025 2:33 PM CDT 01/02/2025 9:01 AM CDT Nikky Calixto MD LAB BODY FLUIDS AND STOOL S ORDERABLES Final Result [facility]ANN [address] [facility] [place] [address] [facility] * Throat culture Throat (12/18/2024 2:42 PM CDT) Report Final Report: No growth of pathogens. Comment:Testing performed by : [facility], [address] [place]., [address] Throat 12/18/2024 2:42 PM CDT 12/19/2024 5:59 AM CDT Narrative JOANN - 12/20/2024 7:26 AM CDT Testing performed by [facility] Microbiology Laboratory ([phone]). Sabrina Mukherjee NP LAB MICROBIOLOGY - GENERAL ORDE RABLES Final Result [facility] [address] Department of Laboratories [place], [place] [id number] * POCT rapid strep A (12/18/2024 12:21 PM CDT) Rapid Strep A, POC Negative Negative Swab 12/18/2024 12:2 1 PM CDT Sabrina Mukherjee NP POINT OF CARE TEST ORDERABLES F inal Result * Volume and period, urine, 24 hour (11/15/2024 9:00 AM HEALTH PSYCHOLOGIST) Volume, ur 700 mL Period, Urine Collection 1,440 min JOANN Urine 11/15/2024 9:00 AM HEALTH PSYCHOLOGIST 11/15/2024 3:12 PM HEALTH PSYCHOLOGIST Narrative JOANN - 11/15/2024 3:25 PM HEALTH PSYCHOLOGIST Send Results CC: Josias Deleon M.D. Division of Gastroenterology in [facility] [address] [facility] [address] (P) [phone] (F) [phone] Paulo Gonsalez MD LAB URINE ORDERABLES Final Result Performing Organization Address [facility] de Phone Number JOANN [address] [facility] [place] [address] * Cortisol free urine 24 hour (11/15/2024 9:00 AM HEALTH PSYCHOLOGIST) Cortisol, free, 24 hr, ur 15 3.5 - 45 mcg/24H [facility] ref [facility] Comment: Interpretive Data Testing performed by: [facility], [place] [address]. Urine 11/15/2024 9:00 AM HEALTH PSYCHOLOGIST 11/15/2024 3:12 PM HEALTH PSYCHOLOGIST [facility] - 11/22/2024 5:07 PM HEALTH PSYCHOLOGIST Send Results CC: Josias Deleon M.D. Division of Gastroenterology in [facility] [address] [facility] [address] (P) [phone] (F) [phone] Paulo Gonsalez MD LAB URINE ORDERABLES Final Result Performing Organization Address [facility] de Phone Number JOANN LOZANO [address] [facility] [place] [address] [facility] ref [facility] * Dexamethasone (11/08/2024 8:25 AM HEALTH PSYCHOLOGIST) Dexamethasone 168 ng/dL [facility] ref [facility] Comment: REFERENCE VALUE Baseline: <30 ng/dL 8:00 AM, Following 1 mg Dexamethasone, previous evening: >100 ng/dL 8:00 AM, Following 8 mg Dexamethasone, (4 x 2 mg doses) previous day: >800 ng/dL ADDITIONAL INFORMATION This test was developed and its performance characteristics determined by [facility] in a manner consistent with CLIA requirements. This test has not been cleared or approved by the U.S. Food and Drug Administration. Test Performed by: [facility] Laboratories - [facility] [address] [place] [address] Multiple Drum Sander Helper: Karon Baez Ph.D.; CLIA# [id number] Blood 11/08/2024 8:25 AM HEALTH PSYCHOLOGIST 11/08/2024 8:01 PM HEALTH PSYCHOLOGIST Narrative JOANN LOZANO - 11/16/2024 3:25 PM HEALTH PSYCHOLOGIST Send Results CC: Josias Deleon M.D. Division of Gastroenterology in [facility] [address] [facility] [address] (P) [phone] (F) [phone] Draw between 7 and 9 am Paulo Gonsalez MD LAB BLOOD ORDERABLES Final Result JOANN [address] Department [place] [address] [facility] Lab from Last 3 Months Insurance [facility] [employer] Address: [facility] [address] [place] [address] [employer] Address: [facility] [id number] [place] [address] Advance Directives For more information, please contact: [phone] * Full Code (Latest Code Status on File) Date Activated Date Inactivated Comments 03/24/2024 6:21 PM 03/26/2024 5:36 PM Care Teams Band Splicer Relationship Specialty Start Date End Date Paulo Gonsalez MD [facility] [place] [address] PCP - General Family Medicine 04/09/22 Nikky Calixto MD [address] [address] Consulting Physician Obstetrics and Gynecology 08/22/24
--- OUTSIDE RECORDS SUMMARY | 2025-01-15 12:55 | XMS_ITS | Encounter Summary ---
Author Organization [facility] Healthcare Address [address] [place] [address] Care Team Providers Care Engineering Secretary Name Role Phone Paulo Gonsalez MD Primary Care Provider [phone] Nikky Calixto MD Unavailable [phone] Encounter Details Date Type Department Care Team (Late st Contact Info) Description 12/20/2024 Results Follow-Up [facility] Convenient Care at [address] [address] Sabrina Mukherjee NP [address] [facility] [address] [place] [address] Social History Tobacco Use Types [...] on filedocumented in this encounter Care Teams Engineering Secretary Relationship Specialty Start Date End Date Paulo Gonsalez MD [address] [place] [address] PCP - General Family Medicine 04/09/22 Nikky Calixto MD [address] [address] Consulting Physician Obstetrics and Gynecology 08/22/24 documented as of this encounter
--- OUTSIDE RECORDS SUMMARY | 2025-01-15 12:55 | XMS_ITS | Encounter Summary ---
Author Organization [facility] Address [address] [place] [address] Phone Care Team Providers Care Digital Marketing Strategist Name Role Phone Paulo Gonsalez MD Primary Care Provider Nikky Calixto MD Unavailable [phone] Encounter Details Date Type Department Care Team (Late st Contact Info) Description 01/12/2025 Results Follow-Up [facility] Obstetrics and Gynecology [address] 13th [place] [address] [place] [address] Nikky Calixto MD [address] [facility] [address] [place] [address] Social History Tobacco Use Types [...] on filedocumented in this encounter Care Teams Digital Marketing Strategist Relationship Specialty Start Date End Date Paulo Gonsalez MD [address] [place] [address] PCP - General Family Medicine 04/09/22 Nikky Calixto MD [address] [address] Consulting Physician Obstetrics and Gynecology 08/22/24 documented as of this encounter
--- OUTSIDE RECORDS SUMMARY | 2025-01-15 12:55 | XMS_ITS | Encounter Summary ---
Author Organization [facility] Address [address] [place] [address] Care Team Providers Care Dust Control Engineer Name Role Phone Paulo Gonsalez MD Primary Care Provider [phone] Nikky Calixto MD Unavailable [phone] Encounter Details Date Type Department Care Team (Late st Contact Info) Description 01/15/2025 Results Follow-Up [facility] Primary Care at [address] [address] Paulo Gonsalez MD [address] [place] [address] [address] [place] [address] Social History Tobacco Use Types [...] on filedocumented in this encounter Care Teams Dust Control Engineer Relationship Specialty Start Date End Date Paulo Gonsalez MD [address] [place] [address] PCP - General Family Medicine 04/09/22 Nikky Calixto MD [address] [address] Consulting Physician Obstetrics and Gynecology 08/22/24 documented as of this encounter
[2025-01-15] MEDS: ONDANSETRON INJ 4 MG/2 ML VIAL IV PUSH (12:58)
[2025-01-15] MEDS: LACTATED RINGERS 2,000 ML 999 ML IV CONT (12:58)
[2025-01-15 13:29] LABS: Amphetamine Screen Urine Negative (Negative); Barbiturate Screen Urine Negative (Negative); Benzodiazepines Screen Urine Negative (Negative); Cannabinoid Screen Urine Negative (Negative); Cocaine Screen Urine Negative (Negative); Methadone Screen Urine Negative (Negative); Opiate Screen Urine Negative (Negative); Phencyclidine Screen Urine Negative (Negative)
[2025-01-15 13:43] VITALS: BP 112/73; PULSE 106; RESP 19; O2SAT 100
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
[2025-01-15 14:37] VITALS: BP 121/84; PULSE 97; RESP 14; TEMP 36.7; O2SAT 99
== END 2025-01-15 14:39 | disposition home or self-care (01) ==
PROVIDERS: Emergency Provider Emergency Medicine; PCP Family Medicine
DX: K31.84 Gastroparesis (principal); E86.0 Dehydration; J45.909 Unspecified asthma, uncomplicated; E72.12 Methylenetetrahydrofolate reductase deficiency; K44.9 Diaphragmatic hernia without obstruction or gangrene; F41.1 Generalized anxiety disorder; F32.A Depression, unspecified; Z90.49 Acquired absence of other specified parts of digestive tract; Z79.3 Long term (current) use of hormonal contraceptives; Z79.899 Other long term (current) drug therapy; R00.0 Tachycardia, unspecified; R94.31 Abnormal electrocardiogram [ECG] [EKG]
CPT/HCPCS: 36415; 74177; 80053; 80307; 81025; 83690; 85025; 93005; 96361; 96374; 99284; J2405; J7120; Q9967